=== PATIENT | female | born 1965 | race Caucasian/White ===

== ENCOUNTER 2022-01-22 17:58 | Emergency (ER) | payer OTHER ==
--- OUTSIDE RECORDS SUMMARY | 2022-01-22 18:03 | XMS REPORT | Continuity of Care Document ---
:1965 Author Organization [facility] t Address [address] [place] [address] Care Team Providers Name Role Phone KELLY MCCABE Primary Care Physician Unavailable Nimo Marinelli Attending Clinician Unavailable REMIGIO GODWIN Attending Clinician Unavailable REMIGIO GODWIN Attending Clinician Unavailable ZAIDA JAMES Attending Clinician Unavailable Doctor Unassigned, [place] Attending Clinician Unavailable Audiology, Reggie Attending Clinician Unavailable Sol Hayes MD Attending Clinician HAYESSOL Attending Clinician Unavailable JOE Attending Clinician Unavailable Yusuf_Patric Attending Clinician Unavailable KARLY Attending Clinician Unavailable Dave Hensley MD Attending Clinician DAVE HENSLEY Attending Clinician Unavailable KARY GRANT Attending Clinician Unavailable Sunny_Luis Attending Clinician Unavailable Bennett_Tuan Attending Clinician Unavailable Victorina_Luci Attending Clinician Unavailable Jerrod Attending Clinician Unavailable HAIM LOPEZ Attending Clinician Unavailable JOE Admitting Clinician Unavailable Yusuf_Patric Admitting Clinician Unavailable IHDE_G Admitting Clinician Unavailable A_Byrd Admitting Clinician Unavailable Bennett_Tuan Admitting Clinician Unavailable Victorina_Luci Admitting Clinician Unavailable Jerrod Admitting Clinician Unavailable HAIM LOPEZ Admitting Clinician Unavailable Payers Payer Name Policy Type Policy Number Effective Date Expiration Date S song [facility] [id number] 2016 PLUS 00:00:00 [place] [id number] [facility] - [place] Plus [facility] [id number] 2020 [place] 00:[place]00 [place] [facility] [id number] - [facility] (INSTIT[facility] [facility] [id number] - [facility] [id number] 2016 COMMUNITY PLAN - 00:00:00 [facility] (MEDICAID HMO) Problems Condition Condition Condition Status Onset Resolution Last Treating Co mments Source Name Details Category Date Date Treatment Clinician Date Acute Acute Problem Active [place] bronchitis Bronchitis 2-14 da 00:00: Medical Group Peripheral Peripheral Problem Active [facility] nerve Nerve 2-23 da disease Disease 00:00: Medical 00 Group Skin Skin Problem Active [place] lesion Lesion 2-23 da 00:00: Medical Group Bipolar Bipolar Problem Active [place] disorder, Disorder, 1-25 da most Most 00:00: [facility] recent Recent al episode Episode Health depression Depression Ou treac h Program Benign Benign Problem Active [place] essential Essential 9-15 da hypertensi Hypertensi 00:00: Me dical on Group Herpes Herpes Problem Active [place] simplex Simplex 3-03 da 00:00: Medical 00 Group Bilateral Bilateral Problem Active [facility] tinnitus Tinnitus 3 da 00:00: Medical Group Seasonal Seasonal Problem Active [place] allergy Allergy 3 da :00: Medical Group Asthma Asthma Problem Active [place] 3 da 00:00: Medical Group Gastroesop Gastroesop Problem Active [facility] [place] hageal hageal 3 da reflux Reflux 00:00: Medical disease Disease 00 Group without without esophagiti Esophagiti s s Chronic Chronic Problem Active [place] constipati Constipati 3 da on on 00:: Medical Group Menopausal Menopausal Problem Active [facility] syndrome Syndrome 3 da :00: Medical Group Bursitis Bursitis Problem Active [place] of hip of Hip 03-20 da 00:00: Medical Group [id number] Sleep Problem Common apnea with Spirit use of - [facility] continuous positive [facility] airway Medical pressure Center (CPAP) [id number] Seasonal Problem Comm on allergic Spirit rhinitis, - [facility] un[facility] [id number] Vitamin D Problem Comm on deficiency Spirit [facility] [id number] Anxiety Problem Common [facility] [id number] Moderate Problem Comm on persistent Spirit asthma - [facility] with acute [facility] [id number] Insomnia, Problem Com mon unspecifie Spirit d type - [facility] [id number] Chronic Problem Common fatigue [facility] [id number] Mixed Problem Common hyperlipid Spirit emia [facility] [id number] Mixed Problem Common incontinen Spirit ce urge - [facility] and stress [facility] Bipolar Bipolar Problem Active [place] disorder Disorder da [facility] Anxiety Anxiety Problem Active [place] attack Attack [facility] Chronic Chronic Problem Active [place] pain Pain da [facility] Gastroesop Gastroesop Problem Active M [facility] hageal hageal da reflux Reflux Medical disease Disease Group Breasts Breasts Problem Active [place] asymmetric Asymmetric da al al Medical Group Foot pain Foot Pain Problem Active [facility] Tremor Tremor Problem Active [place] [facility] Allergies, Adverse Reactions, Alerts Allergy Allergy Status Severity Reaction(s) Onset Inactive Treating Comm ents Source Name Type Date Date Clinician Fentanyl Propensi Active Rash 2015-03 Univer s ty to 03-25 ity of adverse 00:00: [place] reaction 00 Medical s Branch Morphine Propensi Active Rash 2015- Univer s ty to 03-25 ity of adverse 00:00: [place] reaction 00 Medical s Branch FENTANYL DRUG Active Rash 2015- Univers INGREDI 03-25 ity of 00:00: [place] 00 Medical Branch MORPHINE DRUG Active Rash 2015- Univers INGREDI 03-25 ity of 00:00: [place] 00 [facility] Branch morphine morphine Active rash [facility] fentanyl fentanyl Active rash [facility] Fentanyl Allergy Active [place] to [facility] Medical e Group Morphine Allergy Active [place] to [facility] Medical e Group Social History Social Habit Start Date Stop Date Quantity Comments Source History of Tobacco [facility] - [facility] Use [facility] Sex Assigned At Common Sp derick - [facility] Exposure to 2021-08-11 2021-08-21 Not sure [facility] SARS-CoV-2 (event) 00:00:00 14:36:00 [facility] Alcohol intake 2017-02-05 2017-02-05 0 /d [facility] 00:00:00 00:00:00 [facility] Smoking Status Start Date Stop Date Source Former Smoker 2021-10-25 00:00:00 2021-10-25 00:00:00 [facility] Medications Ordered Filled Start Stop Current Ordering Indication Dosage Frequency Signature Comments Components Source Medication Medication Date Date Medication? Clinician (SIG) Name Name Oxybutynin Oxybutynin 2021- No 1{table QD Oxybutynin Chloride ER Chloride ER 10-31 t} Chloride 15 MG 15 MG 00:00: 00:00 ER 15 MG 00 :00 Myrbetriq Myrbetriq 2021- No 1{table QD Myrbetriq 25 MG 25 MG 10-05 t} 25 MG 00:00: 00:00 00 :00 Myrbetriq Myrbetriq 2021- No 1{table QD Myrbetriq 25 MG 25 MG 10-05 t} 25 MG 00:00: 00:00 00 :00 Myrbetriq Myrbetriq 2021- No 1{table QD Myrbetriq 25 MG 25 MG 10-05 11 t} 25 MG 00:00: 00:00 00 :00 valACYclovi valACYclovi 2021- No BID valACYclov r HCl 500 r HCl 500 09-12 ir HCl 500 MG MG 00:00: 00:00 MG 00 :00 valACYclovi valACYclovi 2021- No BID valACYclov r HCl 500 r HCl 500 09-12 ir HCl 500 MG MG 00:00: 00:00 MG 00 :00 Oxybutynin Oxybutynin 2021-0 No 1{table QD Oxybutynin Chloride ER Chloride ER 707 t} Chloride 10 MG 10 MG 00:00: ER 10 MG 00 Oxybutynin Oxybutynin No 1{table QD Oxybutynin Chloride ER Chloride ER 7-07 t} Chloride 10 MG 10 MG 00:00: ER 10 MG 00 Oxybutynin Oxybutynin 0 No 1{table QD Oxybutynin Chloride ER Chloride ER 707 t} Chloride 10 MG 10 MG 00:00: ER 10 MG 00 Bactrim DS Bactrim DS 2021- No 1{table BID Bactrim DS 800-160 MG 800-160 MG 08-17 t} 800-160 MG 00:00: 00:00 00 :00 Montelukast Montelukast 2021-0 No 1{table QD Montelukas Sodium 10 Sodium 10 6-06 t} t Sodium MG MG 00:00: 10 MG 00 Advair Advair No 1{puff} BID Advair Diskus Diskus - Diskus 250-50 250-50 00:00: 250-50 MCG/DOSE MCG/DOSE 00 MCG/DOSE Advair Advair No 1{puff} BID Advair Diskus Diskus 6-06 Diskus 250-50 250-50 00:00: 250-50 MCG/DOSE MCG/DOSE 00 MCG/DOSE Albuterol Albuterol No 2{puffs Albuterol Sulfate HFA Sulfate HFA 08-07 } Sulfate 108 (90 108 (90 00:00: HFA 108 Base) Base) 00 (90 Base) MCG/ACT MCG/ACT MCG/ACT Montelukast Montelukast No 1{table QD Montelukas Sodium 10 Sodium 10 6-06 t} t Sodium MG MG 00:00: 10 MG 00 Albuterol Albuterol No 2{puffs Albuterol Sulfate HFA Sulfate HFA 06 } Sulfate 108 (90 108 (90 00:00: HFA 108 Base) Base) 00 (90 Base) MCG/ACT MCG/ACT MCG/ACT Ipratropium Ipratropium 2021- No 2{spray TID Ipratropiu [place] 08-07 12- s_in_ea m [place] 0.06 % 0.06 % 00:00: 00:00 ch_nost 0.06 % 00 :00 ril} Ipratropium Ipratropium 2021- No 2{spray TID Ipratropiu [place] 08-07 12- s_in_ea m [place] 0.06 % 0.06 % 00:00: 00:00 ch_nost 0.06 % 00 :00 ril} buPROPion Yes Univers XL 300 mg 4-03 ity of 24 hr 00:00: [place] tablet [facility] OXcarbazepi Yes Univer s ne 300 mg 4-03 ity of tablet 00:00: [place] [facility] buPROPion Yes Univers XL 300 mg 4-03 ity of 24 hr 00:00: [place] tablet [facility] OXcarbazepi Yes Univer s ne 300 mg 4-03 ity of tablet 00:00: [place] [facility] buPROPion Yes Univers XL 300 mg 4-03 ity of 24 hr 00:00: [place] tablet [facility] OXcarbazepi Yes Univer s ne 300 mg 4-03 ity of tablet 00:00: [place] [facility] buPROPion Yes Univers XL 300 mg 4-03 ity of 24 hr 00:00: [place] tablet [facility] OXcarbazepi Yes Univer s ne 300 mg 4-03 ity of tablet 00:00: [address] diclofenac Yes Univers 75 mg EC 3-28 ity of tablet 00:00: [place] 00 [facility] diclofenac 2017-0 Yes Univers 75 mg EC 3-28 ity of tablet 00:00: [place] 00 [facility] diclofenac 2017-0 Yes Univers 75 mg EC 3-28 ity of tablet 00:00: [place] [facility] diclofenac 2017-0 Yes Univers 75 mg EC 3-28 ity of tablet 00:00: [place] [facility] metoprolol 2017-0 Yes Univers tartrate 50 3-27 ity of mg tablet 00:00: [place] [facility] metoprolol 2017-0 Yes Univers tartrate 50 3-27 ity of mg tablet 00:00: [place] [facility] metoprolol 20170 Yes Univers tartrate 50 3-27 ity of mg tablet 00:00: [place] [facility] metoprolol 2017-0 Yes Univers tartrate 50 3-27 ity of mg tablet 00:00: [place] [facility] DOK 100 mg 2017-0 Yes Univers capsule 3-13 ity of 00:00: [place] [facility] polyethylen 2017-0 Yes Univer s e glycol 17 3-13 ity of gram/dose 00:00: [place] powder 00 Medical Branch valACYclovi 2017-0 Yes Univer s r 500 mg 3-13 ity of tablet 00:00: [place] [facility] DOK 100 mg 2017-0 Yes Univers capsule 3-13 ity of 00:00: [place] [facility] polyethylen 2017-0 Yes Univer s e glycol 17 3-13 ity of gram/dose 00:00: [place] powder 00 Medical Branch valACYclovi 2017-0 Yes Univer s r 500 mg 3-13 ity of tablet 00:00: [place] [facility] DOK 100 mg 2017-0 Yes Univers capsule 3-13 ity of 00:00: [place] 00 [facility] polyethylen 2017-0 Yes Univer s e glycol 17 3-13 ity of gram/dose 00:00: [place] powder 00 Medical Branch valACYclovi 2017-0 Yes Univer s r 500 mg 3-13 ity of tablet 00:00: [place] 00 [facility] DOK 100 mg 2017-0 Yes Univers capsule 3-13 ity of 00:00: [place] [facility] polyethylen 2017-0 Yes Univer s e glycol 17 3-13 ity of gram/dose 00:00: [place] powder 00 Medical Branch valACYclovi 2017-0 Yes Univer s r 500 mg 3-13 ity of tablet 00:00: [address] omeprazole 2017-0 Yes Univers 40 mg 3-12 ity of capsule 00:00: [address] omeprazole 2017-0 Yes Univers 40 mg 3-12 ity of capsule 00:00: [address] omeprazole 2017-0 Yes Univers 40 mg 3-12 ity of capsule 00:00: [address] omeprazole 2017-0 Yes Univers 40 mg 3-12 ity of capsule 00:00: [address] chlorproMAZ 2017-0 Yes Univer s INE 100 mg 3-07 ity of tablet 00:00: [address] chlorproMAZ 2017-0 Yes Univer s INE 100 mg 3-07 ity of tablet 00:00: [address] chlorproMAZ 2017-0 Yes Univer s INE 100 mg 3-07 ity of tablet 00:00: [address] chlorproMAZ 2017-0 Yes Univer s INE 100 mg 3-07 ity of tablet 00:00: [address] QUEtiapine 2017-0 Yes Univers 200 mg 2-24 ity of tablet 00:00: [address] QUEtiapine 2017-0 Yes Univers 200 mg 2-24 ity of tablet 00:00: [address] QUEtiapine 2017-0 Yes Univers 200 mg 2-24 ity of tablet 00:00: [address] QUEtiapine 2017-0 Yes Univers 200 mg 2-24 ity of tablet 00:00: [address] tiZANidine 2017-0 Yes Univers 4 mg tablet 2-18 ity of 00:00: [address] tiZANidine 2017-0 Yes Univers 4 mg tablet 2-18 ity of 00:00: [address] tiZANidine 2017-0 Yes Univers 4 mg tablet 2-18 ity of 00:00: [address] tiZANidine 2017-0 Yes Univers 4 mg tablet 2-18 ity of 00:00: [address] OLANZapine 2016-0 Yes Univers 10 mg 2-10 ity of tablet 00:00: [address] OLANZapine 2017-0 Yes Univers 10 mg 2-10 ity of tablet 00:00: [address] OLANZapine 2017-0 Yes Univers 10 mg 2-10 ity of tablet 00:00: [place] 00 [facility] OLANZapine 2017-0 Yes Univers 10 mg 2-10 ity of tablet 00:00: [place] 00 [facility] acetaminoph 2017-0 Yes Univer s en-codeine 2-01 ity of 300-30 mg 00:00: [place] tablet 00 Medical Branch acetaminoph 2017-0 Yes Univer s en-codeine 2-01 ity of 300-30 mg 00:00: [place] tablet 00 Medical Branch acetaminoph 2017-0 Yes Univer s en-codeine 2-01 ity of 300-30 mg 00:00: [place] tablet Medical Branch acetaminoph 2017-0 Yes Univer s en-codeine 2-01 ity of 300-30 mg 00:00: [place] tablet 00 Medical Branch PROAIR HFA 2017-0 Yes Univers 90 1-25 ity of mcg/actuati 00:00: [place] on inhaler 00 Medical Branch PROAIR HFA 2017-0 Yes Univers 90 1-25 ity of mcg/actuati 00:00: [place] on inhaler 00 Medical Branch PROAIR HFA 2017-0 Yes Univers 90 1-25 ity of mcg/actuati 00:00: [place] on inhaler 00 Medical Branch PROAIR HFA 2017-0 Yes Univers 90 1-25 ity of mcg/actuati 00:00: [place] on inhaler 00 Medical Branch naproxen 2017-0 Yes Univers 500 mg 1-23 ity of tablet 00:00: [place] [facility] naproxen 2017-0 Yes Univers 500 mg 1-23 ity of tablet 00:00: [place] [facility] naproxen 2017-0 Yes Univers 500 mg 1-23 ity of tablet 00:00: [place] [facility] naproxen 2017-0 Yes Univers 500 mg 1-23 ity of tablet 00:00: [place] [facility] Nitrofurant 2017-0 Yes Univer s oin&Nit. 1-17 ity of Macrocryst 00:00: [place] 100 mg 00 Medical capsule Branch Nitrofurant 2017-0 Yes Univer s oin&Nit. 1-17 ity of Macrocryst 00:00: [place] 100 mg 00 Medical capsule Branch Nitrofurant 2017-0 Yes Univer s oin&Nit. 1-17 ity of Macrocryst 00:00: [place] 100 mg 00 Medical capsule Branch Nitrofurant 2017-0 Yes Univer s oin&Nit. 1-17 ity of Macrocryst 00:00: [place] 100 mg 00 Medical capsule Branch diphenhydrA Yes Univer s MINE 25 mg 1-11 ity of capsule 00:00: [place] 00 [facility] diphenhydrA Yes Univer s MINE 25 mg 1-11 ity of capsule 00:00: [place] [facility] diphenhydrA Yes Univer s MINE 25 mg 1-11 ity of capsule 00:00: [place] [facility] diphenhydrA Yes Univer s MINE 25 mg 1-11 ity of capsule 00:00: [place] [facility] hydrOXYzine hydrOXYzine No 1{table BID hydrOXYzin HCl 25 MG HCl 25 MG t_as_ne e HCl 25 eded} MG Escitalopra Escitalopra No 1{table QD Escitalopr m Oxalate m Oxalate t} am Oxalate 20 MG 20 MG 20 MG Ipratropium Ipratropium No 2{spray TID Ipratropiu [place] s_in_ea m [place] 0.06 % 0.06 % ch_nost 0.06 % ril} Tylenol # 3 Tylenol # 3 No 1{table BID Tylenol # 300/30mg 300/30mg t_as_ne 3 300/30mg eded} Propranolol Propranolol No 1{table BID Propranolo HCl 40 MG HCl 40 MG t_on_an l HCl 40 _empty_ MG stomach } Advair Advair No 1{puff} BID Advair Diskus Diskus Diskus 250-50 250-50 250-50 MCG/DOSE MCG/DOSE MCG/DOSE tiZANidine tiZANidine No 1{table BID tiZANidine HCl 4 MG HCl 4 MG t_as_ne HCl 4 MG eded} Albuterol Albuterol No 2{puffs Albuterol Sulfate HFA Sulfate HFA } Sulfate 108 (90 108 (90 HFA 108 Base) Base) (90 Base) MCG/ACT MCG/ACT MCG/ACT Montelukast Montelukast No 1{table QD Montelukas Sodium 10 Sodium 10 t} t Sodium MG MG 10 MG hydrOXYzine hydrOXYzine No 1{table BID hydrOXYzin HCl 25 MG HCl 25 MG t_as_ne e HCl 25 eded} MG Albuterol Albuterol No 2{puffs Albuterol Sulfate HFA Sulfate HFA } Sulfate 108 (90 108 (90 HFA 108 Base) Base) (90 Base) MCG/ACT MCG/ACT MCG/ACT Tylenol # 3 Tylenol # 3 No 1{table BID Tylenol # 300/30mg 300/30mg t_as_ne 3 300/30mg eded} Ipratropium Ipratropium No 2{spray TID Ipratropiu [place] s_in_ea m [place] 0.06 % 0.06 % ch_nost 0.06 % ril} Propranolol Propranolol No 1{table BID Propranolo HCl 80 MG HCl 80 MG t} l HCl 80 MG hydrOXYzine hydrOXYzine No 1{table BID hydrOXYzin HCl 25 MG HCl 25 MG t_as_ne e HCl 25 eded} MG Escitalopra Escitalopra No 1{table QD Escitalopr m Oxalate m Oxalate t} am Oxalate 20 MG 20 MG 20 MG Advair Advair No 1{puff} BID Advair Diskus Diskus Diskus 250-50 250-50 250-50 MCG/DOSE MCG/DOSE MCG/DOSE Montelukast Montelukast No 1{table QD Montelukas Sodium 10 Sodium 10 t} t Sodium MG MG 10 MG tiZANidine tiZANidine No 1{table BID tiZANidine HCl 4 MG HCl 4 MG t_as_ne HCl 4 MG eded} Albuterol Albuterol No 2{puffs Albuterol Sulfate HFA Sulfate HFA } Sulfate 108 (90 108 (90 HFA 108 Base) Base) (90 Base) MCG/ACT MCG/ACT MCG/ACT Tylenol # 3 Tylenol # 3 No 1{table BID Tylenol # 300/30mg 300/30mg t_as_ne 3 300/30mg eded} Ipratropium Ipratropium No 2{spray TID Ipratropiu [place] s_in_ea m [place] 0.06 % 0.06 % ch_nost 0.06 % ril} Propranolol Propranolol No 1{table BID Propranolo HCl 80 MG HCl 80 MG t} l HCl 80 MG hydrOXYzine hydrOXYzine No 1{table BID hydrOXYzin HCl 25 MG HCl 25 MG t_as_ne e HCl 25 eded} MG Escitalopra Escitalopra No 1{table QD Escitalopr m Oxalate m Oxalate t} am Oxalate 20 MG 20 MG 20 MG Advair Advair No 1{puff} BID Advair Diskus Diskus Diskus 250-50 250-50 250-50 MCG/DOSE MCG/DOSE MCG/DOSE Montelukast Montelukast No 1{table QD [place]as Sodium 10 Sodium 10 t} t Sodium MG MG 10 MG tiZANidine tiZANidine No 1{table BID tiZANidine HCl 4 MG HCl 4 MG t_as_ne HCl 4 MG eded} hydrOXYzine hydrOXYzine No 1{table BID hydrOXYzin HCl 25 MG HCl 25 MG t_as_ne e HCl 25 eded} MG Albuterol Albuterol No 2{puffs Albuterol Sulfate HFA Sulfate HFA } Sulfate 108 (90 108 (90 HFA 108 Base) Base) (90 Base) MCG/ACT MCG/ACT MCG/ACT Tylenol # 3 Tylenol # 3 No 1{table BID Tylenol # 300/30mg 300/30mg t_as_ne 3 300/30mg eded} Montelukast Montelukast No 1{table QD [place]as Sodium 10 Sodium 10 t} t Sodium MG MG 10 MG Propranolol Propranolol No 1{table BID Propranolo HCl 80 MG HCl 80 MG t} l HCl 80 MG Ipratropium Ipratropium No 2{spray TID Ipratropiu [place] s_in_ea m [place] 0.06 % 0.06 % ch_nost 0.06 % ril} Escitalopra Escitalopra No 1{table QD Escitalopr m Oxalate m Oxalate t} am Oxalate 20 MG 20 MG 20 MG tiZANidine tiZANidine No 1{table BID tiZANidine HCl 4 MG HCl 4 MG t_as_ne HCl 4 MG eded} Advair Advair No 1{puff} BID Advair Diskus Diskus Diskus 250-50 250-50 250-50 MCG/DOSE MCG/DOSE MCG/DOSE Propranolol Propranolol No Propranolo HCl 80 MG HCl 80 MG l HCl 80 MG Albuterol Albuterol No 2{puffs Albuterol Sulfate HFA Sulfate HFA } Sulfate 108 (90 108 (90 HFA 108 Base) Base) (90 Base) MCG/ACT MCG/ACT MCG/ACT Tylenol # 3 Tylenol # 3 No 1{table BID Tylenol # 300/30mg 300/30mg t_as_ne 3 300/30mg eded} Montelukast Montelukast No 1{table QD Montelukas Sodium 10 Sodium 10 t} t Sodium MG MG 10 MG Oxybutynin Oxybutynin No Oxybutynin Chloride ER Chloride ER Chloride 10 MG 10 MG ER 10 MG Escitalopra Escitalopra No 1{table QD Escitalopr m Oxalate m Oxalate t} am Oxalate 20 MG 20 MG 20 MG Ipratropium Ipratropium No 2{spray TID Ipratropiu [place] s_in_ea m [place] 0.06 % 0.06 % ch_nost 0.06 % ril} tiZANidine tiZANidine No 1{table BID tiZANidine HCl 4 MG HCl 4 MG t_as_ne HCl 4 MG eded} Propranolol Propranolol No Propranolo HCl 40 MG HCl 40 MG l HCl 40 MG hydrOXYzine hydrOXYzine No 1{table BID hydrOXYzin HCl 25 MG HCl 25 MG t_as_ne e HCl 25 eded} MG Advair Advair No 1{puff} BID Advair Diskus Diskus Diskus 250-50 250-50 250-50 MCG/DOSE MCG/DOSE MCG/DOSE Escitalopra Escitalopra No 1{table QD Escitalopr m Oxalate m Oxalate t} am Oxalate 20 MG 20 MG 20 MG hydrOXYzine hydrOXYzine No 1{table BID hydrOXYzin HCl 25 MG HCl 25 MG t_as_ne e HCl 25 eded} MG Propranolol Propranolol No 1{table BID Propranolo HCl 40 MG HCl 40 MG t_on_an l HCl 40 _empty_ MG stomach } tiZANidine tiZANidine No 1{table BID tiZANidine HCl 4 MG HCl 4 MG t_as_ne HCl 4 MG eded} Tylenol # 3 Tylenol # 3 No 1{table BID Tylenol # 300/30mg 300/30mg t_as_ne 3 300/30mg eded} tiZANidine tiZANidine No 1{table BID tiZANidine HCl 4 MG HCl 4 MG t_as_ne HCl 4 MG eded} Escitalopra Escitalopra No 1{table QD Escitalopr m Oxalate m Oxalate t} am Oxalate 20 MG 20 MG 20 MG Propranolol Propranolol No 1{table BID Propranolo HCl 40 MG HCl 40 MG t_on_an l HCl 40 _empty_ MG stomach } Tylenol # 3 Tylenol # 3 No 1{table BID Tylenol # 300/30mg 300/30mg t_as_ne 3 300/30mg eded} hydrOXYzine hydrOXYzine No 1{table BID hydrOXYzin HCl 25 MG HCl 25 MG t_as_ne e HCl 25 eded} MG Tylenol # 3 Tylenol # 3 No 1{table BID Tylenol # 300/30mg 300/30mg t_as_ne 3 300/30mg eded} Ipratropium Ipratropium No 2{spray TID Ipratropiu [place] s_in_ea m [place] 0.06 % 0.06 % ch_nost 0.06 % ril} hydrOXYzine hydrOXYzine No 1{table BID hydrOXYzin HCl 25 MG HCl 25 MG t_as_ne e HCl 25 eded} MG Propranolol Propranolol No 1{table BID Propranolo HCl 40 MG HCl 40 MG t_on_an l HCl 40 _empty_ MG stomach } Escitalopra Escitalopra No 1{table QD Escitalopr m Oxalate m Oxalate t} am Oxalate 20 MG 20 MG 20 MG Albuterol Albuterol No 2{puffs Albuterol Sulfate HFA Sulfate HFA } Sulfate 108 (90 108 (90 HFA 108 Base) Base) (90 Base) MCG/ACT MCG/ACT MCG/ACT Montelukast Montelukast No 1{table QD Montelukas Sodium 10 Sodium 10 t} t Sodium MG MG 10 MG Advair Advair No 1{puff} BID Advair Diskus Diskus Diskus 250-50 250-50 250-50 MCG/DOSE MCG/DOSE MCG/DOSE tiZANidine tiZANidine No 1{table BID tiZANidine HCl 4 MG HCl 4 MG t_as_ne HCl 4 MG eded} Escitalopra Escitalopra No 1{table QD Escitalopr m Oxalate m Oxalate t} am Oxalate 20 MG 20 MG 20 MG Ipratropium Ipratropium No 2{spray TID Ipratropiu [place] s_in_ea m [place] 0.06 % 0.06 % ch_nost 0.06 % ril} Tylenol # 3 Tylenol # 3 No 1{table BID Tylenol # 300/30mg 300/30mg t_as_ne 3 300/30mg eded} Propranolol Propranolol No 1{table BID Propranolo HCl 40 MG HCl 40 MG t_on_an l HCl 40 _empty_ MG stomach } Advair Advair No 1{puff} BID Advair Diskus Diskus Diskus 250-50 250-50 250-50 MCG/DOSE MCG/DOSE MCG/DOSE tiZANidine tiZANidine No 1{table BID tiZANidine HCl 4 MG HCl 4 MG t_as_ne HCl 4 MG eded} Albuterol Albuterol No 2{puffs Albuterol Sulfate HFA Sulfate HFA } Sulfate 108 (90 108 (90 HFA 108 Base) Base) (90 Base) MCG/ACT MCG/ACT MCG/ACT Montelukast Montelukast No 1{table QD Montelukas Sodium 10 Sodium 10 t} t Sodium MG MG 10 MG acetaminoph acetaminoph No acetaminop [place] 300 en 300 hen 300 da mg-codeine mg-codeine mg-codeine [facility] 30 mg 30 mg 30 mg al tablet TAKE tablet TAKE tablet Health 1 TABLET BY 1 TABLET BY TAKE 1 Outreac MOUTH TWICE MOUTH TWICE TABLET BY h DAILY FOR DAILY FOR MOUTH Prog erin 14 DAYS 14 DAYS TWICE DAILY FOR 14 DAYS albuterol albuterol No albuterol [place] HFA sulfate HFA sulfate da 90 90 HFA 90 [facility] mcg/actuati mcg/actuati mcg/actuat al on aerosol on aerosol ion Hea lth inhaler inhaler aerosol Outrea c INHALE 2 INHALE 2 inhaler h PUFFS BY PUFFS BY INHALE 2 Pro gram MOUTH EVERY MOUTH EVERY PUFFS BY 4 HOURS 4 HOURS MOUTH NEEDED NEEDED EVERY 4 HOURS NEEDED aripiprazol aripiprazol No 1 Q1D aripiprazo [place] 15 mg e 15 mg le 15 mg da tablet Take tablet Take tablet [facility] 1 tablet 1 tablet Take 1 al every day every day tablet Hea lth by oral by oral every day Outr eac route in route in by oral h the the route in Program morning. morning. the morning. atorvastati atorvastati No atorvastat [place] 10 mg n 10 mg in 10 mg da tablet TAKE tablet TAKE tablet [facility] 1 TABLET BY 1 TABLET BY TAKE 1 al MOUTH EVERY MOUTH EVERY TABLET BY Health DAY DAY MOUTH Outreac EVERY DAY h Program Banophen 50 Banophen 50 No Banophen [place] mg capsule mg capsule 50 mg da TK 1 C PO TK 1 C PO capsule TK [facility] QHS QHS 1 C PO QHS al Health Outreac h Program bupropion bupropion No 1 Q1D bupropion [place] HCl XL 300 HCl XL 300 HCl XL 300 da mg 24 hr mg 24 hr mg 24 hr Epi scop tablet, tablet, tablet, al extended extended extended Hea lth release release release Outrea c Take 1 Take 1 Take 1 h tablet tablet tablet Program every day every day every day by oral by oral by oral route in route in route in the the the morning. morning. morning. citalopram citalopram No citalopram [place] 40 mg 40 mg 40 mg da tablet TAKE tablet TAKE tablet [facility] 1 TABLET BY 1 TABLET BY TAKE 1 al MOUTH EVERY MOUTH EVERY TABLET BY Health MORNING MORNING MOUTH Outreac EVERY h MORNING Program clindamycin clindamycin No clindamyci [facility] HCl 150 mg HCl 150 mg n HCl 150 da capsule TK capsule TK mg capsule [facility] 1 C PO QID 1 C PO QID TK 1 C PO al FOR FOR QID FOR Health INFECTION INFECTION INFECTION Outreac h Program clonazepam clonazepam No clonazepam [place] 0.5 mg 0.5 mg 0.5 mg da tablet TK 1 tablet TK 1 tablet TK [facility] T PO BID T PO BID 1 T PO BID a l Health Outreac h Program clotrimazol clotrimazol No clotrimazo [place] e 1 % e 1 % le 1 % da topical topical topical [facility] p cream JASON cream JASON cream JASON al AA BID AA BID AA BID Health Outreac h Program ergocalcife ergocalcife No ergocalcif [place] rol rol cj da (vitamin (vitamin (vitamin Epi scop D2) 1,250 D2) 1,250 D2) 1,250 al mcg (50,000 mcg (50,000 mcg H ealth unit) unit) (50,000 Outreac capsule capsule unit) h TAKE 1 TAKE 1 capsule Program CAPSULE BY CAPSULE BY TAKE 1 MOUTH 1 MOUTH 1 CAPSULE BY TIME WEEKLY TIME WEEKLY MOUTH 1 TIME WEEKLY estradiol 1 estradiol 1 No estradiol [facility] mg tablet mg tablet 1 mg da TAKE 1 TAKE 1 tablet [facility] TABLET BY TABLET BY TAKE 1 al MOUTH EVERY MOUTH EVERY TABLET BY Health DAY DAY MOUTH Outreac EVERY DAY h Program fluticasone fluticasone No fluticason [place] propionate propionate e da 50 50 propionate [facility] mcg/actuati mcg/actuati 50 a l on nasal on nasal mcg/actuat H ealth spray,suspe spray,suspe ion nasal Outreac nsion SHAKE nsion SHAKE spray,susp h LIQUID AND LIQUID AND ension P rogram USE 1 SPRAY USE 1 SPRAY SHAKE IN EACH IN EACH LIQUID AND NOSTRIL NOSTRIL USE 1 DAILY DAILY SPRAY IN EACH NOSTRIL DAILY gemfibrozil gemfibrozil No gemfibrozi [place] 600 mg 600 mg l 600 mg da tablet TAKE tablet TAKE tablet [facility] 1 TABLET BY 1 TABLET BY TAKE 1 al MOUTH TWICE MOUTH TWICE TABLET BY Health DAILY DAILY MOUTH Outreac TWICE h DAILY Program hydroxyzine hydroxyzine No hydroxyzin [place] HCl 50 mg HCl 50 mg e HCl 50 d a tablet TAKE tablet TAKE mg tablet [facility] 1 TABLETS 1 TABLETS TAKE 1 al BY MOUTH BY MOUTH TABLETS BY H ealth TWICE DAILY TWICE DAILY MOUTH Outreac NEEDED NEEDED TWICE h DAILY Program NEEDED hydroxyzine hydroxyzine No hydroxyzin [place] pamoate 25 pamoate 25 e pamoate da mg capsule mg capsule 25 mg [facility] TK 1 C PO TK 1 C PO capsule TK al QD PRA QD PRA 1 C PO QD Health PRA Outreac h Program nystatin nystatin No nystatin [facility] 100,000 100,000 100,000 da unit/mL unit/mL unit/mL [facility] p oral oral oral al suspension suspension suspension Health TK 4 ML PO TK 4 ML PO TK 4 ML PO Outreac QID FOR 7 QID FOR 7 QID FOR 7 h DAYS DAYS DAYS Program ondansetron ondansetron No ondansetro [place] HCl 4 mg HCl 4 mg n HCl 4 mg d a tablet TK 1 tablet TK 1 tablet TK [facility] T PO Q 6 H T PO Q 6 H 1 T PO Q 6 al PRF NAUSEA PRF NAUSEA H PRF He alth OR VOM OR VOM NAUSEA OR Outrea c VOM h Program oxcarbazepi oxcarbazepi No oxcarbazep [place] ne 150 mg ne 150 mg ine 150 mg da tablet TK 1 tablet TK 1 tablet TK [facility] T PO BID T PO BID 1 T PO BID a l Health Outreac h Program pantoprazol pantoprazol No pantoprazo [place] e 40 mg e 40 mg le 40 mg da tablet,alfredito tablet,alfredito tablet,del [facility] yed release yed release ayed a l TK 1 T PO TK 1 T PO release TK Health QD QD 1 T PO QD Outreac h Program polyethylen polyethylen No polyethyle [place] e glycol e glycol ne glycol da 3350 17 3350 17 3350 17 [facility] p gram/dose gram/dose gram/dose al oral powder oral powder oral H ealth DIS 17 DIS 17 powder DIS Outre ac GRAMS IN LQ GRAMS IN LQ 17 GRAMS h AND TK PO AND TK PO IN LQ AND Program BID PRN UTD BID PRN UTD TK PO BID PRN UTD propranolol propranolol No propranolo [place] 80 mg 80 mg l 80 mg da tablet TAKE tablet TAKE tablet [facility] 1 TABLET BY 1 TABLET BY TAKE 1 al MOUTH TWICE MOUTH TWICE TABLET BY Health DAILY DAILY MOUTH Outreac TWICE h DAILY Program quetiapine quetiapine No quetiapine [facility] 100 mg 100 mg 100 mg da tablet TK 1 tablet TK 1 tablet TK [facility] T PO ONCE D T PO ONCE D 1 T PO al ONCE D Health Outreac h Program quetiapine quetiapine No quetiapine [facility] 200 mg 200 mg 200 mg da tablet TK 1 tablet TK 1 tablet TK [facility] T PO QHS T PO QHS 1 T PO QHS a l Health Outreac h Program quetiapine quetiapine No quetiapine [facility] 300 mg 300 mg 300 mg da tablet TK 1 tablet TK 1 tablet TK [facility] T PO HS T PO HS 1 T PO HS al Health Outreac h Program sucralfate sucralfate No sucralfate [facility] 1 gram 1 gram 1 gram da tablet TK 1 tablet TK 1 tablet TK [facility] T PO QID T PO QID 1 T PO QID a l Health Outreac h Program tizanidine tizanidine No tizanidine [facility] 4 mg tablet 4 mg tablet 4 mg d a TK 1 T PO TK 1 T PO tablet TK [facility] BID BID 1 T PO BID al Health Outreac h Program tramadol 50 tramadol 50 No tramadol [facility] mg tablet mg tablet 50 mg da TK ONE T PO TK ONE T PO tablet TK [facility] Q 6 H PRN P Q 6 H PRN P ONE T PO Q al 6 H PRN P Health Outreac h Program valacyclovi valacyclovi No valacyclov [place] r 500 mg r 500 mg ir 500 mg da tablet TAKE tablet TAKE tablet [facility] 1 TABLET BY 1 TABLET BY TAKE 1 al MOUTH EVERY MOUTH EVERY TABLET BY Health DAY DAY MOUTH Outreac EVERY DAY h Program acetaminoph acetaminoph No acetaminop [place] en 300 en 300 hen 300 da mg-codeine mg-codeine mg-codeine Medical 30 mg 30 mg 30 mg Group tablet TAKE tablet TAKE tablet 1 TABLET BY 1 TABLET BY TAKE 1 MOUTH TWICE MOUTH TWICE TABLET BY DAILY DAILY MOUTH TWICE DAILY albuterol albuterol No 2puff(s Q4H albuterol [place] sulfate HFA sulfate HFA ) sulfate da 90 90 HFA 90 Medical mcg/actuati mcg/actuati mcg/actuat Group on aerosol on aerosol ion inhaler inhaler aerosol Inhale 2 Inhale 2 inhaler puffs every puffs every Inhale 2 4 hours by 4 hours by puffs inhalation inhalation every 4 route as route as hours by needed. needed. inhalation route as needed. atorvastati atorvastati No atorvastat [place] n 10 mg n 10 mg in 10 mg da tablet TAKE tablet TAKE tablet Medical 1 TABLET BY 1 TABLET BY TAKE 1 Group MOUTH EVERY MOUTH EVERY TABLET BY DAY DAY MOUTH EVERY DAY bupropion bupropion No bupropion [facility] HCl XL 300 HCl XL 300 HCl XL 300 da mg 24 hr mg 24 hr mg 24 hr Med ical tablet, tablet, tablet, Group extended extended extended release release release TAKE 1 TAKE 1 TAKE 1 TABLET BY TABLET BY TABLET BY MOUTH EVERY MOUTH EVERY MOUTH MORNING MORNING EVERY MORNING citalopram citalopram No citalopram [place] 40 mg 40 mg 40 mg da tablet TAKE tablet TAKE tablet Medical 1 TABLET BY 1 TABLET BY TAKE 1 Group MOUTH EVERY MOUTH EVERY TABLET BY MORNING MORNING MOUTH EVERY MORNING estradiol 1 estradiol 1 No estradiol [facility] mg tablet mg tablet 1 mg da TAKE 1 TAKE 1 tablet Medical TABLET BY TABLET BY TAKE 1 Sherin up MOUTH EVERY MOUTH EVERY TABLET BY DAY DAY MOUTH EVERY DAY fluticasone fluticasone No fluticason [place] propionate propionate e da 50 50 propionate Medical mcg/actuati mcg/actuati 50 G roup on nasal on nasal mcg/actuat spray,suspe spray,suspe ion nasal nsion SHAKE nsion SHAKE spray,susp LIQUID AND LIQUID AND ension USE 1 SPRAY USE 1 SPRAY SHAKE IN EACH IN EACH LIQUID AND NOSTRIL NOSTRIL USE 1 EVERY DAY EVERY DAY SPRAY IN EACH NOSTRIL EVERY DAY gemfibrozil gemfibrozil No gemfibrozi [place] 600 mg 600 mg l 600 mg da tablet TAKE tablet TAKE tablet Medical 1 TABLET BY 1 TABLET BY TAKE 1 Group MOUTH TWICE MOUTH TWICE TABLET BY DAILY DAILY MOUTH TWICE DAILY hydroxyzine hydroxyzine No hydroxyzin [place] HCl 50 mg HCl 50 mg e HCl 50 d a tablet TAKE tablet TAKE mg tablet Medical 1 TABLET BY 1 TABLET BY TAKE 1 Group MOUTH AT MOUTH AT TABLET BY BEDTIME BEDTIME MOUTH AT BEDTIME ipratropium ipratropium No ipratropiu [facility] 0.5 0.5 m 0.5 da mg-albutero mg-albutero mg-albuter Medical l 3 mg (2.5 l 3 mg (2.5 ol 3 mg Group mg base)/3 mg base)/3 (2.5 mg mL mL base)/3 mL nebulizatio nebulizatio nebulizati n soln USE n soln USE on soln 1 VIAL VIA 1 VIAL VIA USE 1 VIAL NEBULIZER NEBULIZER VIA FOUR TIMES FOUR TIMES NEBULIZER DAILY DAILY FOUR TIMES DAILY ipratropium ipratropium No ipratropiu [place] bromide 42 bromide 42 m bromide da mcg (0.06 mcg (0.06 42 mcg Med ical %) nasal %) nasal (0.06 %) Sherin up spray USE 2 spray USE 2 nasal SPRAYS IN SPRAYS IN spray USE EACH EACH 2 SPRAYS NOSTRIL NOSTRIL IN EACH THREE TIMES THREE TIMES NOSTRIL DAILY DAILY THREE TIMES DAILY montelukast montelukast No montelukas [facility] 10 mg 10 mg t 10 mg da tablet TAKE tablet TAKE tablet Medical 1 TABLET BY 1 TABLET BY TAKE 1 Group MOUTH EVERY MOUTH EVERY TABLET BY DAY DAY MOUTH EVERY DAY propranolol propranolol No propranolo [facility] 80 mg 80 mg l 80 mg da tablet TAKE tablet TAKE tablet Medical 1 TABLET BY 1 TABLET BY TAKE 1 Group MOUTH TWICE MOUTH TWICE TABLET BY DAILY DAILY MOUTH TWICE DAILY tizanidine tizanidine No tizanidine [facility] 4 mg tablet 4 mg tablet 4 mg d a TAKE 1 TAKE 1 tablet Medical TABLET BY TABLET BY TAKE 1 Sherin up MOUTH TWICE MOUTH TWICE TABLET BY DAILY DAILY MOUTH TWICE DAILY Immunizations Ordered Immunization Filled Immunization Date Status Commen ts Source Name Name influenza, influenza, 2016-01-03 Completed [place] injectable, injectable, 00:00:00 Medical Grou p quadrivalent quadrivalent pneumococcal pneumococcal 2015-11-22 Completed [place] polysaccharide PPV23 polysaccharide PPV23 00:00:00 Medical Group Vital Signs Vital Name Observation Time Observation Value Comments Source height 2021-08-07 15:20:00 63 [in_i] [facility] weight 2021-08-07 15:20:00 216 [lb_av] [facility] temperature 2021-08-07 15:20:00 97.3 [degF] [facility] bmi 2021-08-07 15:20:00 38.26 kg/m2 [facility] oximetry 2021-08-07 15:20:00 95 % [facility] respiratory rate 2021-08-07 15:20:00 16 /min Comm on [facility] blood pressure 2021-08-07 15:20:00 130 mm[Hg] [facility] - systolic [facility] blood pressure 2021-08-07 15:20:00 82 mm[Hg] [facility] - diastolic [facility] BP Diastolic 2021-04-14 00:00:00 80 mm[Hg] [facility] Height 2021-04-14 00:00:00 63 [in_i] [facility] BMI (Body Mass 2021-04-14 00:00:00 37.8 kg/[facility]2 [facility] BP Systolic 2021-04-14 00:00:00 121 mm[Hg] [facility] Body Weight 2021-04-14 00:00:00 3411 [oz_av] [facility] BP Diastolic 2021-03-13 00:00:00 78 mm[Hg] [facility] Height 2021-03-13 00:00:00 63 [in_i] [facility] BMI (Body Mass 2021-03-13 00:00:00 38.1 kg/m2 [facility] Medical Index) Group BP Systolic 2021-03-13 00:00:00 116 mm[Hg] [facility] Body Weight 2021-03-13 00:00:00 214.9 [lb_av] [facility] BP Diastolic 2021-02-16 00:00:00 70 mm[Hg] [facility] Height 2021-02-16 00:00:00 63 [in_i] [facility] BMI (Body Mass 2021-02-16 00:00:00 38.1 kg/m2 [facility] Medical Index) Group BP Systolic 2021-02-16 00:00:00 132 mm[Hg] [facility] Body Weight 2021-02-16 00:00:00 215 [lb_av] [facility] BP Diastolic 2020-11-23 00:00:00 75 mm[Hg] [facility] Height 2020-11-23 00:00:00 63 [in_i] [facility] BMI (Body Mass 2020-11-23 00:00:00 38.3 kg/m2 [facility] Medical Index) Group BP Systolic 2020-11-23 00:00:00 117 mm[Hg] [facility] Body Weight 2020-11-23 00:00:00 216.2 [lb_av] [facility] BP Diastolic 2020-06-30 00:00:00 76 mm[Hg] [facility] Height 2020-06-30 00:00:00 63 [in_i] [facility] BMI (Body Mass 2020-06-30 00:00:00 35.8 kg/m2 [facility] Medical Index) Group BP Systolic 2020-06-30 00:00:00 126 mm[Hg] [facility] Body Weight 2020-06-30 00:00:00 202 [lb_av] [facility] BP Diastolic 2020-06-16 00:00:00 78 mm[Hg] [facility] Height 2020-06-16 00:00:00 63 [in_i] [facility] BMI (Body Mass 2020-06-16 00:00:00 35.8 kg/m2 [facility] BP Systolic 2020-06-16 00:00:00 130 mm[Hg] [facility] Body Weight 2020-06-16 00:00:00 202 [lb_av] [facility] BP Diastolic 2020-04-26 00:00:00 89 mm[Hg] [facility] Height 2020-04-26 00:00:00 63 [in_i] [facility] BMI (Body Mass 2020-04-26 00:00:00 35[facility]9 [facility] BP Systolic 2020-04-26 00:00:00 135 mm[Hg] [facility] Body Weight 2020-04-26 00:00:00 3244.8 [oz_av] [facility] BP Diastolic 2020-03-08 00:00:00 68 mm[Hg] [facility] Height 2020-03-08 00:00:00 63 [in_i] [facility] BMI (Body Mass 2020-03-08 00:00:00 36.8 kg/m2 [facility] [employer] Medical Index) Group BP Systolic 2020-03-08 00:00:00 132 mm[Hg] [facility] Body Weight 2020-03-08 00:00:00 207.6 [lb_av] [facility] BP Diastolic 2020-01-21 00:00:00 62 mm[Hg] [facility] Height 2020-01-21 00:00:00 63 [in_i] [facility] BMI (Body Mass 2020-01-21 00:00:00 38.5 kg/m2 [facility] BP Systolic 2020-01-21 00:00:00 128 mm[Hg] [facility] Body Weight 2020-01-21 00:00:00 217.2 [lb_av] [facility] BP Diastolic 2019-12-31 00:00:00 75 mm[Hg] [facility] Height 2019-12-31 00:00:00 63 [in_i] [facility] BMI (Body Mass 2019-12-31 00:00:00 38.3 kg/m2 [facility] Medical Index) Group BP Systolic 2019-12-31 00:00:00 125 mm[Hg] [facility] Body Weight 2019-12-31 00:00:00 216 [lb_av] [facility] BP Diastolic 2019-11-17 00:00:00 77 mm[Hg] [facility] Height 2019-11-17 00:00:00 63 [in_i] [facility] BMI (Body Mass 2019-11-17 00:00:00 38.3 kg/m2 [facility] Medical Index) Group BP Systolic 2019-11-17 00:00:00 129 mm[Hg] [facility] Body Weight 2019-11-17 00:00:00 216 [lb_av] [facility] BP Diastolic 2019-11-03 00:00:00 78 mm[Hg] [facility] Height 2019-11-03 00:00:00 63 [in_i] [facility] BMI (Body Mass 2019-11-03 00:00:00 37.9 kg/m2 [facility] Medical Index) Group BP Systolic 2019-11-03 00:00:00 121 mm[Hg] [facility] Body Weight 2019-11-03 00:00:00 214 [lb_av] [facility] BP Diastolic 2019-05-12 00:00:00 84 mm[Hg] [facility] Height 2019-05-12 00:00:00 63 [in_i] [facility] BMI (Body Mass 2019-05-12 00:00:00 36 kg/m2 [facility] Medical Index) Group BP Systolic 2019-05-12 00:00:00 126 mm[Hg] [facility] Body Weight 2019-05-12 00:00:00 203 [lb_av] [facility] BP Diastolic 2019-05-05 00:00:00 87 mm[Hg] [facility] Height 2019-05-05 00:00:00 63 [in_i] [facility] BMI (Body Mass 2019-05-05 00:00:00 36 kg/m2 [facility] [employer] Medical Index) Group BP Systolic 2019-05-05 00:00:00 130 mm[Hg] [facility] Body Weight 2019-05-05 00:00:00 3248 [oz_av] [facility] Procedures Procedure Date / Time Performing Source Performed Clinician REFERRAL- REQUEST/RESPONSE 2021-11-21 Doctor Unive rsity of 05:01:00 Unassigned, No [facility] unlisted imaging order 2021-03-13 [facility] 00:00:00 Group REFERRAL- REQUEST/RESPONSE 2020-08-16 Doctor Unive rsity of 05:01:00 Unassigned, No [facility] MAMMO, screening, digital, 2020-04-26 [facility] Upper GI Endoscopy 2019-11-27 [facility] [facility] 00:00:00 Group Cholecystectomy 2015-03-04 [facility] 00:00:00 Group Colonoscopy 2009-03-04 [facility] 00:00:00 Group Procedure on Lower Leg [facility] Hysterectomy [facility] Orthopedic Surgery [facility] [facility] Esophagogastroduodenoscopy (Surg) [facility] Plan of Care Planned Activity Planned Date Details Comments Source Instructions [facility] Outreach Program Encounters Start End Encounter Admission Attending Care Care Encounter Source Date/Time Date/Time Type Type Clinicians Facility Department ID 2021-12-11 Outpatient Marinelli, Na [facility] [id number] Common 08:05:02 [facility] 2021-10-27 Outpatient Marinelli, Na [facility] [id number] 2 Common 09:51:02 [facility] 2021-09-06 Outpatient Marinelli, Na [facility] [id number] 2 Common 11:56:02 [facility] 2021-08-07 Outpatient Nimo Marinelli STLMLC ST[facility] [id number] 2 Common 14:59:04 [facility] 2022-01-19 2022-01-19 Outpatient REMIGIO ALBERT [facility] [id number] Univers 13:40:00 13:40:00 TATO, REMIGIO [facility] 2022-01-15 2022-01-15 (TEL) STLMLC STLMLC [id number] Co mmon 00:00:00 00:00:00 [facility] 2022-01-01 2022-01-01 Outpatient Astrid WERNERTATO, REMIGIO [facility] [id number] Univers 13:40:00 13:40:00 REMIGIO GODWIN [facility] 2021-12-08 2021-12-08 Outpatient Astrid WERNERTATO, REMIGIO [facility] [id number] Univers 13:40:00 13:40:00 REMIGIO GODWIN [facility] 2021-11-21 2021-11-21 Orders Doctor KIRSTEN [id number] Univers 00:00:00 00:00:00 Only Unassigned, CARLA [id number] [place]y [place] [facility] [id number] Reggie as [phone] [address] 2021-10-31 2021-10-31 OFFICE STLMLC STLMLC [id number] Co mmon 00:00:00 00:00:00 VISIT EST Spir it PT LEVEL 3 - [facility] 2021-10-10 2021-10-10 (TEL) STLMLC STLMLC [id number] Co mmon 00:00:00 00:00:00 [facility] 2021-10-05 2021-10-05 (TEL) STLMLC STLMLC [id number] Co mmon 00:00:00 00:00:00 [facility] 2021-09-08 2021-09-08 (TEL) STLMLC STLMLC [id number] Co mmon 00:00:00 00:00:00 [facility] 2021-09-06 2021-09-06 (TEL) STLMLC STLMLC [id number] Co mmon 00:00:00 00:00:00 [facility] 2021-09-06 2021-09-06 OFFICE STLMLC STLMLC [id number] Co mmon 00:00:00 00:00:00 VISIT EST Spir it PT LEVEL 3 - [facility] 2021-08-21 2021-08-21 Ancillary Audiology, [facility] [id number] [facility] 14:30:00 15:15:00 Visit Freddy [facility] [id number] [facility] [id number] [facility] [phone] [facility] PRIMARY & [facility] SPECIALTY CARE 2021-08-21 2021-08-21 Outpatient Astrid HAYES [facility] [id number] Univers 14:30:00 14:30:00 [facility] 2021-08-17 2021-08-17 (TEL) STLMLC STLMLC [id number] Co mmon 00:00:00 00:00:00 [facility] 2021-08-07 2021-08-07 OFFICE STLMLC STLMLC [id number] Co mmon 00:00:00 00:00:00 VISIT NEW Spir it PT LEVEL 4 - [facility] 2021-05-30 2021-05-30 Outpatient FERGUSON_JO MEHOP MEHOP 909 [place] 02:29:00 02:29:00 HN [id number] 2021-05-28 2021-05-28 Outpatient FERGUSON_JO MEHOP MEHOP 909 [place] 01:52:00 01:52:00 HN 0327 [facility] 2021-05-03 2021-05-03 Outpatient Wong_H VFP VFP [id number] [facility] 06:42:00 06:42:00 [id number] Family Practic e 2021-04-18 2021-04-18 Outpatient FERGUSON_JO MEHOP MEHOP 909 [place] 04:11:00 04:11:00 HN [id number] [facility] 2021-04-14 2021-04-14 [place] [id number] 022 [place] 03:02:00 03:02:00 0211 [facility] 2021-04-14 2021-04-14 [place] [id number] 022 [place] 03:02:00 03:02:00 021 [facility] 2021-04-14 2021-04-14 Zaida [facility] [place] - [id number] [place] 00:00:00 00:00:00 Discovery Charanjit da CLINICAL EDUCATION SPECIALIST-C: [address] [facility] [place] - [address], [facility], [place] [address] , Ph. 2021-04-13 2021-04-13 Outpatient IHDE_G MMG [facility] [id number] 022 [place] 01:22:00 01:22:00 0210 Medical Group 2021-04-11 2021-04-11 Dave Osborne [facility] [id number] Univers 00:00:00 00:00:00 (Out) SPECIALTY [id number] ity of [facility] [id number] [facility] AT [phone] [place] kathrynpiper [address] 2021-04-02 2021-04-02 Outpatient MAHAMED MCDOWELL 909 [place] 12:26:00 12:26:00 HN [id number] [facility] 2021-03-31 2021-03-31 Outpatient DAVE DELATORRE [facility] [id number] Univers 14:00:00 14:00:00 ity of [facility] 2021-03-13 2021-03-13 Outpatient IHDE_G MMG MMG [id number] [place] 04:46:00 04:46:00 0110 [facility] 2021-03-13 2021-03-13 [place] [id number] [place] 04:46:00 04:46:00 0111 [facility] 2021-03-13 2021-03-13 Kvng Guajardo MM [place] - [id number] [place] 00:00:00 00:00:00 MD: Seven Ortiz [facility], [facility] [address], [facility], Otolaryngol [facility] [address] , Ph. 2021-03-04 2021-03-04 Outpatient MAHAMED MCDOWELL 909 [place] 12:10:00 12:10:00 HN [id number] [facility] 2021-02-16 2021-02-16 Outpatient IHDE_G [facility] [id number] [place] 05:27:00 05:27:00 1216 [facility] 2021-02-16 2021-02-16 Outpatient IHDE_G [facility] [id number] [place] 05:27:00 05:27:00 1218 [facility] 2021-02-16 2021-02-16 Jesus [facility] [place] - [id number] M atagor 00:00:00 00:00:00 Kenrick Zazueta MD: Medical Medica luci [address] [facility] [address], [place] [address] , Ph. [phone] 2021-02-03 2021-02-03 Outpatient Astrid GRANT [facility] [id number] Univers 11:15:00 11:15:00 KARY catalino [facility] 2021-01-13 2021-01-13 Outpatient DAVE DELATORRE [facility] [id number] Univers 14:00:00 14:00:00 itcatalino [facility] 2020-12-13 2020-12-13 Outpatient MAHAMED MCDOWELL 909 [place] 02:48:00 02:48:00 HN [id number] [facility] 2020-11-23 2020-11-23 Outpatient A_[facility]rd [facility] [id number] [place] 03:10:00 03:10:00 0922 Medical Group 2020-11-23 2020-11-23 [id number] 021 [place] 03:10:00 03:10:00 0923 Medical Group 2020-11-23 2020-11-23 Kvng Guajardo [place] - [id number] [place] 00:00:00 00:00:00 : Seven Ortiz [facility], Network Group [address], [facility], Otolaryngol [facility] [address] , Ph. 2020-11-09 2020-11-09 Outpatient FERGUSON_JO MEHOP MEHOP 909 [place] 10:47:00 10:47:00 HN [id number] [facility] 2020-10-17 2020-10-17 Outpatient Astrid GRANT, [facility] [id number] Univers 15:00:00 15:00:00 KARY faulkner [facility] 2020-10-04 2020-10-04 Outpatient FERGUSON_JO MEHOP MEHOP 909 [place] 03:00:00 03:00:00 HN [id number] [facility] 2020-09-01 2020-09-01 Outpatient FERGUSON_JO MEHOP MEHOP [id number] [place] 02:07:00 02:07:00 HN 0701 [facility] 2020-08-31 2020-08-31 Outpatient FERGUSON_JO [facility]OP [facility] 909 [place] 12:16:00 12:16:00 HN 0630 [facility] 2020-08-23 2020-08-23 Outpatient A_[facility] [id number] 021 [place] 09:51:00 09:51:00 0622 Medical Group 2020-08-23 2020-08-23 [facility] [id number] 021 [place] 09:51:00 09:51:00 0907 Medical Group 2020-08-16 2020-08-16 Orders Doctor KIRSTEN [id number] [facility] 00:00:00 00:00:00 Only Unassigned, CARLA [id number] [place] [facility] [id number] Reggie as [id number] [place] [address] [place] 2020-08-09 2020-08-09 Outpatient Yan_W MMG [facility] [id number] 021 [place] 12:08:00 12:08:00 0608 [facility] 2020-07-21 2020-07-21 Outpatient [facility] 909 [place] 03:00:00 03:00:00 HN 0520 [facility] 2020-07-06 2020-07-06 Outpatient IHDE_G MMG [facility] [id number] 021 [place] 11:18:00 11:18:00 0505 [facility] 2020-06-30 2020-06-30 Outpatient FERGUSON_JO MEHOP [facility] 909 [place] 03:59:00 03:59:00 HN 0429 [facility] 2020-06-30 2020-06-30 Outpatient IHDE_G MMG [facility] [id number] 021 [place] 03:15:00 03:15:00 0429 [facility] 2020-06-30 2020-06-30 Outpatient IHDE_G MMG MMG [id number] 021 [place] 03:15:00 03:15:00 0501 [facility] 2020-06-30 2020-06-30 Jesus [facility] [place] - [id number] M [facility] 00:00:00 00:00:00 Kenrick Zazueta MD: [facility] [address] [facility] [address], [place] [address] , Ph. [phone] 2020-06-23 2020-06-23 Outpatient [facility] 909 [place] 02:11:00 02:11:00 HN 0422 [facility] 2020-06-17 2020-06-17 Outpatient [facility]USON[facility] 909 [place] 06:56:00 06:56:00 HN 0416 [facility] 2020-06-16 2020-06-16 [place] [id number] 021 [place] 02:42:00 02:42:00 0415 [facility] 2020-06-16 2020-06-16 [place] [id number] 021 [place] 02:42:00 02:42:00 0416 [facility] 2020-06-16 2020-06-16 Outpatient IHDE_G MMG MMG [id number] 021 [place] 02:42:00 02:42:00 0426 [facility] 2020-06-16 2020-06-16 Jesus [facility] [place] - [id number] M [place] 00:00:00 00:00:00 Kenrick Zazueta MD: Medical [facility] [address], [place] [address] , Ph. [phone] 2020-06-10 2020-06-10 [place] [id number] 021 [place] 04:56:00 04:56:00 0409 [facility] 2020-05-27 2020-05-27 Outpatient [facility]GUSON_JO [facility] 909 [place] 03:36:00 03:36:00 HN 0326 [facility] 2020-05-25 2020-05-25 Outpatient FERGUSON_JO [facility] 909 [place] 03:30:00 03:30:00 HN 0324 [facility] 2020-05-08 2020-05-08 Outpatient FERGUSON_JO [facility] 909 [place] 02:50:00 02:50:00 HN 0307 [facility] 2020-04-26 2020-04-26 [place] [id number] 021 [place] 02:42:00 02:42:00 0223 [facility] 2020-04-26 2020-04-26 Kelly Becerril [facility] [place] - [id number] M [place] 00:00:00 00:00:00 MD Luis: [address] [facility] [address] [address] , Ph. 2020-04-12 2020-04-12 Outpatient Sunny_Luis [facility] [id number] 021 [place] 12:23:00 12:23:00 0209 [facility] 2020-04-11 2020-04-11 Outpatient [facility] 909 [place] 04:04:00 04:04:00 HN 0208 [facility] 2020-03-29 2020-03-29 Outpatient [facility]ON[facility] 909 [place] 05:18:00 05:18:00 HN 0126 [facility] 2020-03-28 2020-03-28 Outpatient [facility] 909 [place] 05:42:00 05:42:00 HN 0125 [facility] 2020-03-28 2020-03-28 [facility] [place] - [id number] M [place] 00:00:00 00:00:00 Beverly Akins MD: [facility] [facility] [address] Manuel galloway , Ph. [phone] 2020-03-24 Outpatient [facility] 909 [place] 03:18:00 03:18:00 HN 0121 [facility] 2020-03-23 2020-03-23 Outpatient FERGUSON_JO MEHOP [facility] 909 [place] 11:49:00 11:49:00 HN 0120 [facility] 2020-03-09 2020-03-09 Outpatient FERGUSON_JO ME[facility]OP [facility] 909 [place] 03:43:00 03:43:00 HN 0106 [facility] h Program 2020-03-08 2020-03-08 Outpatient IHDE_G MMG MMG [id number] 021 [place] 03:24:00 03:24:00 0105 [facility] 2020-03-08 2020-03-08 Outpatient IHDE_G MMG MMG [id number] 021 [place] 03:24:00 03:24:00 0106 [facility] 2020-03-08 2020-03-08 Outpatient IHDE_G MMG MMG [id number] 021 [place] 03:24:00 03:24:00 0201 [facility] 2020-03-08 2020-03-08 Jesus MMG [place] - [id number] M [place] 00:00:00 00:00:00 Kenrick Zazueta MD: Medical [facility] [address], [place] [address] , Ph. [phone] 2020-02-18 2020-02-18 Outpatient IHDE_G MMG MMG [id number] 020 [place] 03:55:00 03:55:00 1217 [facility] 2020-02-18 2020-02-18 Outpatient IHDE_G MMG MMG [id number] 020 [place] 03:55:00 03:55:00 1219 [facility] 2020-02-18 2020-02-18 Outpatient IHDE_G MMG MMG [id number] 020 [place] 03:55:00 03:55:00 1223 [facility] 2020-01-22 2020-01-22 Outpatient Rutledge_L MMG MMG [id number] [place] 05:23:00 05:23:00 1120 [facility] 2020-01-22 2020-01-22 Outpatient Rutledge_L MMG MMG [id number] [place] 05:23:00 05:23:00 1128 [facility] 2020-01-22 2020-01-22 Outpatient Rutledge_L MMG MMG [id number] [place] 05:23:00 05:23:00 1202 [facility] 2020-01-22 2020-01-22 Outpatient Rutledge_L MMG MMG [id number] [place] 05:23:00 05:23:00 1209 [facility] 2020-01-21 2020-01-21 Outpatient IHDE_G MMG MMG [id number] 020 [place] 10:00:00 10:00:00 1119 [facility] 2020-01-21 2020-01-21 Jesus MMG [place] - [id number] M [place] 00:00:00 00:00:00 Kenrick Zazueta MD: Medical Medica l [address] [facility] [address], [place] [address] , Ph. [phone] 2020-01-20 2020-01-20 Outpatient IHDE_G MMG MMG [id number] 020 [place] 02:18:00 02:18:00 1118 [facility] 2020-01-05 2020-01-05 Outpatient IHDE_G MMG MMG [id number] 020 [place] 10:17:00 10:17:00 1103 [facility] 2019-12-31 2019-12-31 Outpatient FERGUSON_RACHAEL [facility]CDOW[facility] 909 [place] 04:35:00 04:35:00 HN 1029 da [facility] 2019-12-31 2019-12-31 Outpatient IHDE_G MMG MMG [id number] 020 [place] 04:35:00 04:35:00 1029 [facility] 2019-12-31 2019-12-31 Outpatient IHDE_G MMG MMG [id number] 020 [place] 04:35:00 04:35:00 1031 [facility] 2019-12-31 2019-12-31 Jesus MMG [place] - [id number] M [place] 00:00:00 00:00:00 Kenrick Zazueta MD: Medical Medica l [address] [facility] [address], [place] [address] , Ph. [phone] 2019-12-30 2019-12-30 Outpatient IHDE_G MMG MMG [id number] 020 [place] 06:15:00 06:15:00 1028 [facility] 2019-12-25 2019-12-25 [facility] [id number] 020 [place] 10:29:00 10:29:00 1023 Medical Group 2019-12-15 2019-12-15 Outpatient [facility] [id number] 020 [place] 12:33:00 12:33:00 1013 Medical Group 2019-12-15 2019-12-15 Outpatient FERGUSON_JO [facility]OP ME[facility] 909 [place] 04:48:00 04:48:00 HN 1013 [facility] 2019-12-15 2019-12-15 Jesus [facility] [place] - [id number] M [place] 00:00:00 00:00:00 Kenrick Zazueta MD: Medical Medica [address], [place] [address] , Ph. [phone] 2019-12-03 2019-12-03 Outpatient FERGUSON_JO [facility]OP ME[facility] 909 [place] 04:14:00 04:14:00 HN 1001 [facility] 2019-11-27 2019-11-27 Outpatient FERGUSON_JO MEHOP [facility] 909 [place] 05:15:00 05:15:00 HN 0925 [facility] 2019-11-20 2019-11-20 Outpatient FERGUSON_JO [facility]OP [facility] 909 [place] 10:23:00 10:23:00 HN 0918 [facility] 2019-11-18 2019-11-18 [facility] [id number] 020 [place] 11:04:00 11:04:00 0916 Medical Group 2019-11-18 2019-11-18 Outpatient A_[facility]rd [facility] [id number] 020 [place] 11:04:00 11:04:00 0925 Medical Group 2019-11-17 2019-11-17 Outpatient A_Byrd [facility] [id number] 020 [place] 05:15:00 05:15:00 0915 Medical Group 2019-11-17 2019-11-17 Kelly Becerril [facility] [place] - [id number] M [place] 00:00:00 00:00:00 MD Luis: [address] [place] - [address], [facility] [address] , Ph. 2019-11-03 2019-11-03 Outpatient A_Byrd [facility] [id number] 020 [place] 06:39:00 06:39:00 0901 [facility] 2019-11-03 2019-11-03 Kvng Guajardo [facility] [place] - [id number] [place] 00:00:00 00:00:00 : [facility] [address], [facility], Ot[facility]aryng[facility] [address] , Ph. 2019-10-30 2019-10-30 Outpatient FERGUSON_JO [facility]OP ME[facility] 909 [place] 12:08:00 12:08:00 HN 0828 [facility] 2019-10-27 2019-10-27 Outpatient A_[facility]rd [facility] [id number] 020 [place] 07:33:00 07:33:00 0825 Medical Group 2019-10-23 2019-10-23 Outpatient FERGUSON_JO MEHOP ME[facility] 909 [place] 11:17:00 11:17:00 HN 0821 [facility] 2019-10-23 2019-10-23 Outpatient A_Byrd [facility] [id number] 020 [place] 11:14:00 11:14:00 0821 [facility] 2019-10-22 2019-10-22 Outpatient A_Byrd [facility] [id number] 020 [place] 02:57:00 02:57:00 0820 [facility] 2019-10-20 2019-10-20 Outpatient FERGUSON_JO [facility]OP ME[facility] 909 [place] 01:57:00 01:57:00 HN 0818 [facility] 2019-10-18 2019-10-18 Outpatient FERGUSON_JO [facility]OP ME[facility] 909 [place] 02:10:00 02:10:00 HN 0816 [facility] 2019-10-07 2019-10-07 Outpatient A_Byrd MMG MMG [id number] 020 [place] 03:55:00 03:55:00 0805 [facility] 2019-09-08 2019-09-08 Outpatient FERGUSON_JO MEHOP ME[facility] 909 [place] 12:04:00 12:04:00 HN 0707 [facility] 2019-08-30 2019-08-30 Outpatient FERGUSON_JO MEHOP MEHOP 909 [place] 02:47:00 02:47:00 HN 0628 [facility] 2019-08-25 2019-08-25 Outpatient FERGUSON_JO MEHOP MEHOP 909 [place] 12:13:00 12:13:00 HN 0623 [facility] 2019-08-18 2019-08-18 Outpatient FERGUSON_JO MEHOP MEHOP 909 [place] 03:00:00 03:00:00 HN 0616 [facility] 2019-05-27 2019-05-27 Outpatient Shield MMG MMG [id number] 020 [place] 06:16:00 06:16:00 0325 Medical Group 2019-05-12 2019-05-12 Outpatient Shield MMG MMG [id number] 020 [place] 07:13:00 07:13:00 0310 Medical Group 2019-05-12 2019-05-12 Jesus MMG [place] - [id number] M [place] 00:00:00 00:00:00 Kenrick Zazueta MD: Medical Medica [address], [place] [address] , Ph. [phone] 2019-05-05 2019-05-05 Outpatient Shield MMG MMG [id number] 020 [place] 05:46:00 05:46:00 0303 Medical Group 2019-05-05 2019-05-05 Kelly Becerril MMG [place] - [id number] M [place] 00:00:00 00:00:00 MD Luis: [employer] [address] [place] [address] - [address], [facility], [facility] [address] , Ph. 2019-04-29 2019-04-29 [facility] [id number] 020 [place] 06:31:00 06:31:00 0226 Medical Group 2019-04-29 2019-04-29 [place] [id number] [place] 06:31:00 06:31:00 0302 da [facility] Group 2019-04-20 2019-04-20 Outpatient FERGUSON_JO MEHOP [facility] 909 [place] 05:19:00 05:19:00 HN 0615 [facility] 2019-04-20 2019-04-20 Outpatient FERGUSON_JO MEHOP [facility] 909 [place] 05:19:00 05:19:00 HN 0217 [facility] 2018-02-14 2018-02-14 Outpatient Shield [facility]G [facility] [id number] 020 [place] 11:22:00 11:22:00 0218 Medical Group Results Test Description Test Time Test Comments Results Result Comments Source Surgical pathology study 2020-06-17 07:02:00 Test Item Value Reference Range Interpretation Comme nts Surgical pathology study (test code = 47907-6) see emr pathology re port. [facility] W Auto Differential panel - [id number] 02:52:00 Test Item Value Reference Range Interpretation Comments white blood count (test code = 10.5 K/uL 4.0-11.5 white blood count) red blood count (test code = red 4.86 M/uL 3.80-5.20 blood count) hemoglobin (test code = 15.0 g/dL 10.5-15.7 hemoglobin) hematocrit (test code = 45.7 % 34.0-50.0 hematocrit) MCV [Entitic volume] (test code = 94.0 fL 86-100 12399-7) mean corpuscular hemoglobin (test 30.9 pg 26.2-33.4 code = mean corpuscular hemoglobin) mean corpuscular HGB conc (test 32.8 g/dL 30-34 code = mean corpuscular HGB conc) red cell distribution width (test 17.0 % 12.0-15.5 H code = red cell distribution width) platelet count (test code = 322 K/uL 165-450 platelet count) mean platelet volume (test code = 9.4 fL 9.4-12.6 mean platelet volume) Segmented neutrophils/100 59.2 % 44.4-80.1 leukocytes in Blood (test code = 68896-1) Immature granulocytes [#/volume] 0.0 K/uL 0.0-0.03 in Blood (test code = 36278-1) lymphocyte% (test code = 33.5 % 10.0-50.0 lymphocyte%) mono % (test code = mono %) 6.4 % 3.6-12.0 eos % (test code = eos %) 0.3 % 0.0-5.4 Basophils/100 leukocytes in 0.2 % 0.1-1.2 Unspecified specimen (test code = 50867-1) Band form neutrophils [#/volume] 6.20 K/uL 1.56-6.13 H in Blood (test code = 60939-0) Lymphocytes [#/volume] in 3.5 K/uL 1.18-3.74 Unspecified specimen by Automated count (test code = 85110-0) mono # (test code = mono #) 0.67 K/uL 0.24-0.86 eos # (test code = eos #) 0.03 K/uL 0.04-0.36 L basophil # (test code = basophil 0.02 K/uL 0.01-0.08 #) NRBC% (test code = NRBC%) 0 /100 WBC 0-0.2 NRBC# (test code = NRBC#) 0 K/uL [facility] method unspecified - [id number] 02:52:00NeutrophilsBandLymphocyteAtypical LymphMonocyteEosinophilBasophilMetamyelocyteMyelocytePromyelocyteBlastsNucleated Red Blood CellDifferential CommentAbs Neutrophil Count (Man)Abs Lymph Count (Man)Abs Monocyte Count (Man)Abs Eosinophil Count (Man)Abs Basophil Count (Man)Platelet EstimatePlatelet Morphol ogyPoikilocytosisAnisocytosisMacrocytosisTarget CellsStomatocyteToxic GranulationBurr CellsHypersegmented PolysRouleauToxic VacuolationSmudge Cells [facility] metabolic 1999 panel - Serum or Plasma 2020-06-16 02:52:00 Test Item Value Reference Range Interpretation Comments Glucose [Mass/volume] in Serum or 93 mg/dL 74-106 Plasma (test code = 2345-7) Urea nitrogen [Mass/volume] in 15 mg/dL 6-20 Serum or Plasma (test code = 3094-0) osmolality calculated,serum (test 278 mOsm/kg 280-300 L code = osmolality calculated,serum) creatinine (test code = 0.9 mg/dL 0.50-0.90 creatinine) glomerular filtration rate (test >60.00 code = glomerular filtration rate) Urea nitrogen/Creatinine [Mass 16.7 12-20 Ratio] in Serum or Plasma (test code = 3097-3) sodium level (test code = sodium 139 mmol/L 135-145 level) potassium level (test code = 4.3 mmol/L 3.5-5.2 potassium level) chloride level (test code = 103 mmol/L 98-108 chloride level) CO2 (test code = CO2) 26 mmol/L 21-32 anion gap (test code = anion gap) 14.3 mEq/L 12-20 calcium level (test code = 9.4 mg/dL 8.6-10.0 calcium level) total protein (test code = total 7.2 g/dL 6.6-8.7 protein) albumin (test code = albumin) 4.3 g/dL 3.5-5.2 globulin (test code = globulin) 2.9 gm/dL A/G ratio (test code = A/G ratio) 1.5 >1.0 bilirubin,total (test code = 0.4 mg/dL 0.0-1.2 bilirubin,total) AST/SGOT (test code = AST/SGOT) 19 U/L 15-32 Alanine aminotransferase 35 U/L 0-33 H [Enzymatic activity/volume] in Serum or Plasma (test code = 1742-6) Alkaline phosphatase [Enzymatic 87 U/L 35-105 activity/volume] in Serum or Plasma (test code = 6768-6) [facility] metabolic 1999 panel - Serum or Plasma 2020-01-14 11:07:00 Test Item Value Reference Range Interpretation Comments Glucose [Mass/volume] in Serum or 94 mg/dL 74-106 Plasma (test code = 2345-7) Urea nitrogen [Mass/volume] in 18 mg/dL 6-20 Serum or Plasma (test code = 3094-0) osmolality calculated,serum (test 285 mOsm/kg 280-300 code = osmolality calculated,serum) creatinine (test code = 0.9 mg/dL 0.50-0.90 creatinine) glomerular filtration rate (test >60.00 code = glomerular filtration rate) Urea nitrogen/Creatinine [Mass 20.0 12-20 Ratio] in Serum or Plasma (test code = 3097-3) sodium level (test code = sodium 142 mmol/L 135-145 level) potassium level (test code = 4.4 mmol/L 3.5-5.2 potassium level) chloride level (test code = 108 mmol/L 98-108 chloride level) CO2 (test code = CO2) 23 mmol/L 21-32 anion gap (test code = anion gap) 15.4 mEq/L 12-20 calcium level (test code = 9.6 mg/dL 8.6-10.0 calcium level) total protein (test code = total 6.9 g/dL 6.6-8.7 protein) albumin (test code = albumin) 4.4 g/dL 3.5-5.2 globulin (test code = globulin) 2.5 gm/dL A/G ratio (test code = A/G ratio) 1.8 >1.0 bilirubin,total (test code = <0.3 0.0-1.2 bilirubin,total) AST/SGOT (test code = AST/SGOT) 25 U/L 15-32 Alanine aminotransferase 26 U/L 0-33 [Enzymatic activity/volume] in Serum or Plasma (test code = 1742-6) Alkaline phosphatase [Enzymatic 92 U/L 35-105 activity/volume] in Serum or Plasma (test code = 6768-6) [facility] W Auto Differential panel - [id number] 10:23:00 Test Item Value Reference Range Interpretation Comments white blood count (test code = 7.5 K/uL 4.0-11.5 white blood count) red blood count (test code = red 4.42 M/uL 3.80-5.20 blood count) hemoglobin (test code = 13.6 g/dL 10.5-15.7 hemoglobin) hematocrit (test code = 42.2 % 34.0-50.0 hematocrit) MCV [Entitic volume] (test code = 95.5 fL 86-100 20848-5) mean corpuscular hemoglobin (test 30.8 pg 26.2-33.4 code = mean corpuscular hemoglobin) mean corpuscular HGB conc (test 32.2 g/dL 30-34 code = mean corpuscular HGB conc) red cell distribution width (test 11.5 % 12.0-15.5 L code = red cell distribution width) platelet count (test code = 314 K/uL 165-450 platelet count) mean platelet volume (test code = 9.5 fL 9.4-12.6 mean platelet volume) Segmented neutrophils/100 43.4 % 44.4-80.1 L leukocytes in Blood (test code = 92144-8) Immature granulocytes [#/volume] 0.0 K/uL 0.0-0.03 in Blood (test code = 92599-7) lymphocyte% (test code = 44.3 % 10.0-50.0 lymphocyte%) mono % (test code = mono %) 8.5 % 3.6-12.0 eos % (test code = eos %) 3.2 % 0.0-5.4 Basophils/100 leukocytes in 0.5 % 0.1-1.2 Unspecified specimen (test code = 59996-2) Band form neutrophils [#/volume] 3.24 K/uL 1.56-6.13 in Blood (test code = 60565-3) Lymphocytes [#/volume] in 3.3 K/uL 1.18-3.74 Unspecified specimen by Automated count (test code = 04402-3) mono # (test code = mono #) 0.64 K/uL 0.24-0.86 eos # (test code = eos #) 0.24 K/uL 0.04-0.36 basophil # (test code = basophil 0.04 K/uL 0.01-0.08 #) NRBC% (test code = NRBC%) 0 /100 WBC 0-0.2 NRBC# (test code = NRBC#) 0 K/uL [facility], method unspecified - [id number] 10:23:00NeutrophilsLymphocyteMonocytePlatelet EstimatePlatelet MorphologyHypochromasiaGiant PlateletsTonsil HospitalgoWhitfield Medical Surgical HospitalUrinalysis Complete 2016-10-04 21:23:00 Test Item Value Reference Range Interpretation Comments Color (test code = COLOR) Yellow Yellow,Straw,Pl N yellow Clarity (test code = Clear Clear N CLAR) Specific [place] (test 1.020 1.001-1.035 N code = SPGR) pH (test code = PH) 5.0 5.0-9.0 N Ketone (test code = KET) Negative mg/dL Negative N Glucose (test code = Negative mg/dL Negative N GLUCUR) Protein (test code = Negative mg/dL Negative N PROT) Bilirubin (test code = Negative mg/dL Negative N BILI) Occult Blood (test code = Negative Negative N UDOB) Urobilinogen (test code = 0.2 mg/dL 0.2-1.0 N UROB) Nitrite (test code = NIT) Negative Negative N Leuk Esterase (test code Small Negative A = LEUK) Micros Exam (test code = Indicated MEXAM) Epithelial Cells (test 3-5 /LPF 0-30 A code = EPI) WBC, Urine (test code = 2-5 /HPF 0-5 A UWBC) RBC, Urine (test code = None Seen /HPF 0-5 A URBC) Bacteria (test code = Few /HPF BACT) Glycosylated [id number] 21:21:00 Test Item Value Reference Range Interpretation Comments HBA1c (test code = HBA1C) 4.9 % 4.8-5.9 N Thyroid Stimulating Hormone (TSH)2016-10-04 21:00:00 Test Item Value Reference Range Interpretation Comments TSH (test code = TSH) 3.07 mIU/mL 0.270-4.200 N Lipid [id number] 20:56:00 Test Item Value Reference Range Interpretation Comments Cholesterol (test 185 mg/dL 0-200 N code = CHOL) Triglycerides (test 250 mg/dL 9-200 H code = TRIG) HDL (test code = 40 mg/dL 50-60 L HDL) Chol/HDL (test code 4.6 Ratio 0.0-4.4 H = CHOLPHDL) LDL, Calculated 95 0-130 N (NOTE)RISK O F HEART (test code = LDLC) DISEASEPu blished by [place] Heart AssociationAnal yte Optimal Boderli ne Increased RiskC HOL <200 200-239 >240TRI G <150 150-199 >200HDL Male: >60 <40HDL Fema le: >60 <50LDL <100 130 -159 >160LDL NEAR OP TIMAL IS 100-129 VLDL (test code = 50 mg/dL 5-40 H VLDL) LDL/HDL (test code = 2 LDLPHDL) [id number] 20:56:00 Test Item Value Reference Range Interpretation Comments Barry (test code = LI) 0.37 mmol/L 0.6-1.2 L Comprehensive Metabolic [id number] 20:56:00 Test Item Value Reference Range Interpretation Comments Sodium (test code = 141 mmol/L 135-145 N NA) Potassium (test 4.2 mmol/L 3.5-5.1 N code = K) Chloride (test code 106 mmol/L 98-105 H = CL) Carbon Dioxide 24 mmol/L 22-29 N (test code = CO2) Glucose (test code 110 mg/dL 70-115 N = GLU) Blood Urea Nitrogen 12 mg/dL 6-20 N (test code = BUN) Creatinine (test 0.9 mg/dL 0.5-0.9 N code = CREAT) Calcium (test code 9.2 mg/dL 8.3-10.5 N = CA) Prot Total (test 6.5 g/dL 6.4-8.3 N code = TP) Albumin (test code 4.0 g/dL 3.5-5.2 N = ALB) A/G Ratio (test 1.6 Ratio code = AGRATIO) Globulin (test code 2.5 2.9-3.1 L = GLOB) Bili Total (test 0.2 mg/dL 0.1-0.9 N code = TBIL) Alk Phos (test code 112 U/L 35-104 H = APHOS) AST (test code = 21 U/L 1-32 N AST) ALT (test code = 25 U/L 1-33 N ALT) BUN/Creatinine 13.3 Ratio (test code = BCRATIO) Anion Gap (test 11 mmol/L 7-16 N code = AGAP) Estimated GFR (test >60 eGFR (es timated code = GFR) mL/min/1.73m2 Glomerular Jonathon tration Rate) is an est imated value,calculate d from the patient's s oliver creatinine usin g the MDRD equation.I t is NOT the patient 's actual GFR. The eGFR provides a more clinicallyusefu l measure of kidn ey disease than se rum creatinine alone.This calculation marnie es sex and race into account, if the informationis provided. If th e race is not provided , and the patient isAfrican-Ameri can, multiply by 1.2 12. If sex is not prov ided, and thepatient is female, multipl y by 0.742. Results for patients <18 ye ars ofage have not been validated by th e MDRD study and shoul d be interpretedwith caution.eGFR Re sult Interpretation: eGFR > or = 60 is in t he Normal RangeeGF R < 60 may mean kidney diseaseeGFR < 1 5 may mean kidney failureRange s recommended by the [employer],http ://nkd ep.nih.gov CBC with [id number] 20:49:00 Test Item Value Reference Range Interpretation Comments WBC (test code = WBC) 7.6 K/cumm 4.4-10.5 N RBC (test code = RBC) 4.15 M/cumm 3.75-5.20 N Hemoglobin (test code = HGB) 13.4 gm/dL 12.2-14.8 N Hematocrit (test code = HCT) 42.2 % 36.5-44.4 N MCV (test code = MCV) 101.5 fL 80-100 H MCH (test code = MCH) 32.4 pg 27.0-32.5 N MCHC (test code = MCHC) 31.9 g/dL 32.0-37.5 L RDW (test code = RDW) 13.3 % 11.5-14.5 N Platelet Count (test code = 307 K/cumm 140-440 N PLTCT) MPV (test code = MPV) 10.1 fL Diff Method (test code = DIFFM) Auto Neutrophil (test code = NEUT) 51.6 % 36-70 N Lymphocyte (test code = LYMPH) 34.2 % 12-44 N Monocyte (test code = MONO) 9.8 % 0-11 N Eosinophil (test code = EOS) 3.4 % 0-7 N Basophil (test code = BASO) 1.1 % 0-2 N Neutro Abs (test code = ANEUT) 3.9 K/cumm 1.6-7.4 N Lymph Abs (test code = ALYMPH) 2.6 K/cumm 0.5-4.6 N Dickens Abs (test code = AMONO) 0.8 K/cumm 0.0-1.2 N Eos Abs (test code = AEOS) 0.26 K/cumm 0.00-0.74 N Baso Abs (test code = ABASO) 0.1 K/cumm 0.00-0.21 N
--- NOTE | 2022-01-22 19:41 | RAD REPORT ---
EXAM DESCRIPTION: RAD - Chest Single View - 01/22/2022 7:36 pm CLINICAL HISTORY: left hand swelling Chest pain. COMPARISON: No comparisons FINDINGS: Portable technique limits examination quality. The lungs are grossly clear. The heart is upper limit of normal in size. No displaced fractures. IMPRESSION: No acute intrathoracic process suspected.
--- NOTE | 2022-01-22 19:42 | RAD REPORT ---
EXAM DESCRIPTION: RAD - Hand Left 3 View - 01/22/2022 7:36 pm CLINICAL HISTORY: Pain COMPARISON: No comparisons FINDINGS: Mild to moderate soft tissue swelling along the dorsum of the hand. No fracture, dislocati on or aggressive marrow lesion.
--- NOTE | 2022-01-22 20:34 | RAD REPORT ---
EXAM DESCRIPTION: US - UPPER EXTREMITY VENOUS UNILATE - 01/22/2022 7:40 pm CLINICAL HISTORY: SWELLING Arm swelling and edema. COMPARISON: No comparisons FINDINGS: Left upper extremity venous system was interrogated with Doppler technique. Normal flow, c ompressibility and augmentation was noted. There is no DVT present. IMPRESSION: No evidence of left upper extremity deep venous thrombosis.
[2022-01-22 21:25] LABS: Absolute Lymphocytes (CBC) 3.2 K/uL (0.7-4.9); Hematocrit 46.7 % (36.0-45.0); Lymphocytes % 29.6 % (15.3-44.8); MCV 96.1 fL (80-100); MPV 7.8 fL (7.6-11.3); RBC Red Blood Cell Count 4.86 M/uL (3.86-4.86)
--- NOTE | 2022-01-22 22:46 | ER ---
Nurse's Notes [facility] Name: Tash Manuel Age: 56 yrs Sex: Female : 1965 Arrival Date: 01/22/2022 Time: 18:00 Bed 10 Private MD: Diagnosis: Pain in left hand;Localized swelling, mass and lump, left upper limb-left hand Presentation: 01/22 18:49 Chief complaint: Patient states: left hand swelling that comes and goes x2 weeks; does jh5 have hx arthritis. Coronavirus screen: Vaccine status: Patient reports being unvaccinated. Client denies travel out of the [place] in the last 14 days. Ebola Screen: Patient negative for fever greater than or equal to 101.5 degrees Fahrenheit, and additional compatible Ebola Virus Disease symptoms Patient denies exposure to infectious person. Patient denies travel to an Ebola-affected area in the 21 days before illness onset. Initial Sepsis Screen: Does the patient meet any 2 criteria? No. Patient's initial sepsis screen is negative. Does the patient have a suspected source of infection? No. Patient's initial sepsis screen is negative. Risk Assessment: Do you want to hurt yourself or someone else? Patient reports no desire to harm self or others. 18:49 Method Of Arrival: Ambulatory [facility] 18:49 Acuity: NIKOS 3 jh5 Triage Assessment: 18:50 General: Appears in no apparent distress. uncomfortable, obese, well groomed, well jh5 developed, Behavior is calm, cooperative, appropriate for age. Pain: Complains of pain in left hand. Historical: - PMHx: 18:50 Arthritis; Asthma; jh5 - Immunization history:: Adult Immunizations up to date. - Social history:: Smoking status: Patient denies any tobacco usage or history of. Screenin:32 Abuse screen: Denies threats or abuse. Nutritional screening: No deficits noted. vc1 Tuberculosis screening: No symptoms or risk factors identified. Fall Risk None identified. Assessment: 23:33 Reassessment: Patient and/or family updated on plan of care and expected duration. Pain vc1 level reassessed. Patient is alert, oriented x 3, equal unlabored respirations, skin warm/dry/pink. Patient states symptoms have improved. Vital Signs: 18:49 BP 145 / 85; Pulse 86; Resp 16; Temp 98.7; Pulse Ox 98% ; Weight 90.72 kg; Height 5 ft. jh5 3 in. (160.02 cm); Pain 6/10; 18:49 Body Mass Index 35.43 (90.72 kg, 160.02 cm) 5 ED Course: 18:00 Patient arrived in ED. as 18:10 Garry London PA is PHCP. cp 18:10 Ant Salas MD is Attending Physician. cp 18:50 Triage completed. jh5 18:50 Arm band placed on right wrist. jh5 19:38 XRAY Hand LEFT 3 View In Process Unspecified. EDMS 19:38 XRAY Chest (1 view) In Process Unspecified. EDMS 19:42 UPPER EXTREMITY VENOUS UNILATE In Process Unspecified. EDMS 20:03 Shama Kwok, RN is Primary Nurse. kb3 20:39 Missed attempt(s): 20 gauge in right forearm. 3 21:19 BMP Sent. jh5 21:19 CBC with Diff Sent. jh5 21:19 Inserted saline lock: 22 gauge in right wrist, using aseptic technique. 5 22:47 Garry Mcduffie MD is Attending Physician. cp 23:22 Velcro wrist splint applied to left wrist. mb4 23:32 No provider procedures requiring assistance completed. IV discontinued, intact, vc1 bleeding controlled, No redness/swelling at site. Pressure dressing applied. Administered Medications: 23:31 Drug: Ketorolac 15 mg Route: IVP; Site: right wrist; vc1 23:32 Follow up: Response: Medication administered at discharge. vc1 Medication: 23:33 VIS not applicable for this client. vc1 Outcome: 22:46 Discharge ordered by MD. cp 23:32 Discharged to home ambulatory, with family. vc1 23:32 Condition: good 23:32 Discharge instructions given to patient, Instructed on discharge instructions, follow up and referral plans. medication usage, Demonstrated understanding of instructions, follow-up care, medications, Prescriptions given X 1. 23:33 Patient left the ED. vc1 Signatures: Dispatcher [employer] EDMS Juju Roque as Garry London PA PA cp Es Le mb4 Arleen Templeton RN RN 5 Sun Mehta RN RN vc1 Daysi Burger RN RN 3 Sundar, Shama, RN RN kb3
--- NOTE | 2022-01-22 22:47 | EDPHYS ---
Physician Documentation [facility] Name: Tash Manuel Age: 56 yrs Sex: Female : 1965 Arrival Date: 01/22/2022 Time: 18:00 Bed 10 Private MD: ED Physician Grary Mcduffie HPI: 01/22 19:00 This 56 yrs old Female presents to ER via Ambulatory with complaints of Hand Swelling. cp 19:00 The patient or guardian reports swelling, tenderness. The complaints affect the dorsum cp of left hand. Context: resulted from an unknown cause. Onset: The symptoms/episode began/occurred 2 week(s) ago, waxes and wanes. Associated signs and symptoms: Pertinent negatives: cyanosis distally, decreased sensation distally, fever, injury. Severity of symptoms: in the emergency department the symptoms are unchanged, despite home interventions. Historical: - PMHx: 18:50 Arthritis; Asthma; jh5 - Immunization history:: Adult Immunizations up to date. - Social history:: Smoking status: Patient denies any tobacco usage or history of. ROS: 19:05 Constitutional: Negative for body aches, chills, fever, poor PO intake. cp 19:05 Eyes: Negative for injury, pain, redness, and discharge. cp 19:05 ENT: Negative for drainage from ear(s), ear pain, sore throat, difficulty swallowing, difficulty handling secretions. 19:05 Neck: Negative for pain with movement, pain at rest, stiffness. 19:05 Cardiovascular: Negative for chest pain, palpitations. 19:05 Respiratory: Negative for cough, shortness of breath, wheezing. 19:05 Abdomen/GI: Negative for abdominal pain, nausea, vomiting, and diarrhea. 19:05 MS/extremity: Positive for decreased range of motion, swelling, tenderness, of the dorsum of left hand, Negative for injury or acute deformity, paresthesias. 19:05 Skin: Negative for cellulitis, rash. 19:05 Neuro: Negative for numbness, weakness. 19:05 All other systems are negative. Exam: 19:10 Constitutional: The patient appears in no acute distress, alert, awake, cp non-diaphoretic, non-toxic, well developed, well nourished, uncomfortable. 19:10 Head/Face: Normocephalic, atraumatic. cp 19:10 Neck: ROM/movement: is normal, is supple, without pain, no range of motions limitations, no nuchal rigidity. 19:10 Chest/axilla: Inspection: normal. 19:10 Cardiovascular: Rate: normal, Rhythm: regular, Pulses: Pulses are 2+ in left radial artery. Edema: is not appreciated, JVD: is not appreciated. 19:10 Respiratory: the patient does not display signs of respiratory distress, Respirations: normal, no use of accessory muscles, no retractions, labored breathing, is not present, Breath sounds: are clear throughout, no decreased breath sounds, no stridor, no wheezing. 19:10 Back: pain, is absent, ROM is normal. 19:10 Musculoskeletal/extremity: Extremities: grossly normal except: noted in the dorsum left hand: swelling, tenderness, pain along dorsum left thumb, ROM: limited active range of motion, in the left hand, Perfusion: the extremity is normally perfused throughout, the left hand Sensation intact. 19:10 Skin: cellulitis, is not appreciated, no rash present. Vital Signs: 18:49 BP 145 / 85; Pulse 86; Resp 16; Temp 98.7; Pulse Ox 98% ; Weight 90.72 kg; Height 5 ft. jh5 3 in. (160.02 cm); Pain 6/10; 18:49 Body Mass Index 35.43 (90.72 kg, 160.02 cm) jh5 MDM: 18:50 Patient medically screened. cp 22:45 Data reviewed: vital signs, nurses notes, lab test result(s), radiologic studies, plain cp films, ultrasound. 22:45 Differential diagnosis: closed fracture, contusion, cellulitis, DVT. Test cp interpretation: by ED physician or midlevel provider: plain radiologic studies. Counseling: I had a detailed discussion with the patient and/or guardian regarding: the historical points, exam findings, and any diagnostic results supporting the discharge/admit diagnosis, lab results, radiology results, the need for outpatient follow up, a family practitioner, to return to the emergency department if symptoms worsen or persist or if there are any questions or concerns that arise at home. Response to treatment: the patient's symptoms have mildly improved after treatment, and as a result, I will discharge patient. 01/22 18:49 Order name: CBC with Diff; Complete Time: 22:35 cp 01/22 22:35 Interpretation: Normal except: HGB 15.7; HCT 46.7. cp 01/22 18:49 Order name: BMP; Complete Time: 22:35 cp 01/22 18:49 Order name: XRAY Hand LEFT 3 View; Complete Time: 20:08 cp 01/22 18:49 Order name: XRAY Chest (1 view); Complete Time: 20:08 cp 01/22 20:08 Interpretation: Report review. cp 01/22 19:42 Order name: UPPER EXTREMITY VENOUS UNILATE; Complete Time: 20:57 EDMS 01/22 18:49 Order name: IV; Complete Time: 21:19 cp 01/22 22:36 Order name: Splint - Wrist; Complete Time: 23:32 cp Administered Medications: 23:31 Drug: Ketorolac 15 mg Route: IVP; Site: right wrist; vc1 23:32 Follow up: Response: Medication administered at discharge. vc1 Disposition Summary: 01/22/22 22:46 Discharge Ordered Location: Home cp Problem: new cp Symptoms: have improved cp Condition: Stable cp Diagnosis - Pain in left hand cp - Localized swelling, mass and lump, left upper limb - left hand cp Followup: cp - With: Private Physician - When: 2 - 3 days - Reason: Recheck today's complaints Discharge Instructions: - Discharge Summary Sheet cp - Hand Pain cp Forms: - Medication Reconciliation Form cp - Thank You Letter cp - Antibiotic Education cp - Prescription Opioid Use cp Prescriptions: - Diclofenac Sodium 75 mg Oral Tablet Sustained Release - take 1 tablet by ORAL route 2 times per day; 30 tablet; Refills: 0, Product cp Selection Permitted Signatures: Dispatcher [employer] EDMS Garry London PA PA cp Arleen Templeton, RN RN jh5 Sun Mehta RN RN vc1 Corrections: (The following items were deleted from the chart) 19:41 18:50 Extremity Venous Uni [email or web address] ordered. EDMS EDMS
[2022-01-22] MEDS ORDERED: KETOROLAC 30 MG/ML INJ ONE (23:21)
[2022-01-22 23:39] VITALS: BP 145/85; TEMP 98.7; O2SAT 98
== END 2022-01-22 23:33 | disposition home or self-care (01) ==
LOC: ER 17:58
DX: R22.32 Localized swelling, mass and lump, left upper limb (principal)
CPT/HCPCS: 36415; 71045; 80048; 85025; 93971; 96374; 99284

== ENCOUNTER 2022-05-03 19:05 | Emergency (ER) | payer OTHER ==
--- OUTSIDE RECORDS SUMMARY | 2022-05-03 19:12 | XMS REPORT | Continuity of Care Document ---
:1965 Author Organization [facility] t Address [address] [place] [address] Care Team Providers Name Role Phone KELLY MCCABE Primary Care Physician Unavailable Che Madison Attending Clinician Unavailable Nimo Marinelli Attending Clinician Unavailable KARY GRANT Attending Clinician Unavailable Doctor Unassigned, [place] Attending Clinician Unavailable JÚNIOR DANIELS Attending Clinician Unavailable JÚNIOR DANIELS Attending Clinician Unavailable Júnior Daniels MD Attending Clinician ZAIDA JAMES Attending Clinician Unavailable Audiology, Reggie Attending Clinician Unavailable Sol Hayes MD Attending Clinician SOL HAYES Attending Clinician Unavailable JOE Attending Clinician Unavailable Yusuf_Patric Attending Clinician Unavailable VENICE_G Attending Clinician Unavailable Dave Hensley MD Attending Clinician DAVE HENSLEY Attending Clinician Unavailable A_Bybrunilda Attending Clinician Unavailable Bennett_Tuan Attending Clinician Unavailable Victorina_Luci Attending Clinician Unavailable Jerrod Attending Clinician Unavailable HAIM LOPEZ Attending Clinician Unavailable JOE Admitting Clinician Unavailable Yusuf_H Admitting Clinician Unavailable IHDE_G Admitting Clinician Unavailable A_Bybrunilda Admitting Clinician Unavailable Bennett_Tuan Admitting Clinician Unavailable Victorina_Luci Admitting Clinician Unavailable Jerrod Admitting Clinician Unavailable HAIM LOPEZ Admitting Clinician Unavailable Payers Payer Name Policy Type Policy Number Effective Date Expiration Date S song [facility] [id number] 2016 PLUS 00:00:00 [place] [id number] [facility] - C [facility] Plus [facility] [id number] 2020 COMM[place]AN [place] 00:00[place]00 [place] [facility] [id number] - [facility] (INSTITUTIONAL) [place] [facility] [id number] - [facility] [id number] COMMUNITY PLAN - 00:00:00 [facility] (MEDICAID HMO) Problems Condition Condition Condition Status Onset Resolution Last Treating Co mments Source Name Details Category Date Date Treatment Clinician Date Acute Acute Problem Active [place] bronchitis Bronchitis 2-14 da 00:00: Medical 00 Group Peripheral Peripheral Problem Active [facility] nerve Nerve 2-23 da disease Disease 00:00: Medical 00 Group Skin Skin Problem Active [place] lesion Lesion 2-23 da 00:00: Medical 00 Group Bipolar Bipolar Problem Active [place] disorder, Disorder, 1-25 da most Most 00:00: [facility] recent Recent 00 al episode Episode Health depression Depression Ou treac h Program Benign Benign Problem Active [place] essential Essential 9-15 da hypertensi Hypertensi 00:00: Me dical on Group Herpes Herpes Problem Active [place] simplex Simplex 3 da 00:00: Medical Group Bilateral Bilateral Problem Active [facility] tinnitus Tinnitus 05-04 da 00:00: Medical Group Seasonal Seasonal Problem Active [place] [facility] allergy Allergy 05-04 da 00:00: Medical Group Asthma Asthma Problem Active [place] 3 da 00:00: Medical Group Gastroesop Gastroesop Problem Active [facility] hageal hageal 05-04 da reflux Reflux 00:00: Medical disease Disease 00 Group without without esophagiti Esophagiti s s Chronic Chronic Problem Active [facility] constipati Constipati 05-04 da on 00:: Medical Group Menopausal Menopausal Problem Active [facility] syndrome Syndrome 05-04 da 00:00: Medical Group Bursitis Bursitis Problem Active [place] of hip of Hip 03-20 da 00:00: Medical Group [id number] Sleep Problem Common apnea with Spirit use of - [facility] continuous [facility] positive [facility] airway Medical pressure Center (CPAP) [id number] Seasonal Problem Comm on allergic Spirit rhinitis, - [facility] unspecifie d [facility] [id number] Vitamin D Problem Comm on deficiency Spirit [facility] [id number] Anxiety Problem Common Spirit [facility] [id number] Moderate Problem Comm on persistent Spirit asthma - [facility] with acute [facility] [id number] Insomnia, Problem Com mon unspecifie Spirit d type - [facility] [id number] Chronic Problem Common fatigue Spirit - [facility] [id number] Mixed Problem Common hyperlipid Spirit emia - [facility] [id number] Mixed Problem Common incontinen Spirit ce urge - [facility] and stress [facility] Bipolar Bipolar Problem Active [place] disorder Disorder [...] Medical s Branch Morphine Propensi Active Rash 2015-03 Univer s ty to 03-25 ity of adverse 00:00: [place] reaction 00 Medical s Branch FENTANYL DRUG Active Rash 2015-03 Univers INGREDI 03-25 ity of 00:00: [place] 00 Medical Branch MORPHINE DRUG Active Rash 2015-03 Univers INGREDI 03-25 ity of 00:00: [place] 00 Medical Branch morphine morphine Active rash [facility] - [facility] fentanyl fentanyl Active rash [facility] Spirit [facility]I [facility] Fentanyl Allergy Active [place] to da substan Medical e Group Morphine Allergy Active [place] to da substan Medical e Group Social History Social Habit Start Date Stop Date Quantity Comments Source History of Tobacco [facility] - [facility] Use [facility] Sex Assigned At Common Sp derick - [facility] Exposure to 2021-08-11 2021-08-21 Not sure [facility] SARS-CoV-2 (event) 00:00:00 14:36:00 [facility] Alcohol intake 2017-02-05 2017-02-05 0 /d [facility] 00:00:00 00:00:00 [facility] Branch Smoking Status Start Date Stop Date Source Former Smoker 2022-02-01 00:00:00 2022-02-01 00:00:00 [facility] pirit - [facility] Medications Ordered Filled Start Stop Current Ordering [...] MG 00:00: 00:00 00 :00 Myrbetriq Myrbetriq 2021-0 2021- No 1{table QD Myrbetriq 25 MG 25 MG 10-05 t} 25 MG 00:00: 00:00 00 :00 valACYclovi valACYclovi 2021-0 2021- No BID valACYclov r HCl 500 r HCl 500 09-12 ir HCl 500 MG MG 00:00: 00:00 MG 00 :00 valACYclovi valACYclovi 2021-0 2021- No BID valACYclov r HCl 500 r HCl 500 09-12 ir HCl 500 MG MG 00:00: 00:00 MG 00 :00 Oxybutynin Oxybutynin 2021-0 No 1{table QD Oxybutynin Chloride ER Chloride ER 7-07 t} Chloride 10 MG 10 MG 00:00: ER 10 MG 00 Oxybutynin Oxybutynin 2021-0 No 1{table QD Oxybutynin Chloride ER Chloride ER 7-07 t} Chloride 10 MG 10 MG 00:00: ER 10 MG 00 Oxybutynin Oxybutynin 2021-0 No 1{table QD Oxybutynin Chloride ER Chloride ER 7-07 t} Chloride 10 MG 10 MG 00:00: ER 10 MG 00 Bactrim DS Bactrim DS 2021-2021- No 1{table BID Bactrim DS 800-160 MG 800-160 MG 08-17 t} 800-160 MG 00:00: 00:00 00 :00 Advair Advair 2021-0 No 1{puff} BID Advair Diskus Diskus 08-07 Diskus 250-50 250-50 00:00: 250-50 MCG/DOSE MCG/DOSE 00 MCG/DOSE Albuterol Albuterol 2021-0 No 2{puffs Albuterol Sulfate HFA Sulfate HFA 08-07 } Sulfate 108 (90 108 (90 00:00: HFA 108 Base) Base) 00 (90 Base) MCG/ACT MCG/ACT MCG/ACT Montelukast Montelukast 2021-0 No 1{table QD Montelukas Sodium 10 Sodium 10 08-07 t} t Sodium MG MG 00:00: 10 MG 00 Albuterol Albuterol 2022-0 No 2{puffs Albuterol Sulfate HFA Sulfate HFA 08-07 } Sulfate 108 (90 108 (90 00:00: HFA 108 Base) Base) 00 (90 Base) MCG/ACT MCG/ACT MCG/ACT Montelukast Montelukast No 1{table QD Montelukas Sodium 10 Sodium 10 08-07 t} t Sodium MG MG 00:00: 10 MG 00 Advair Advair No 1{puff} BID Advair Diskus Diskus 08-07 Diskus 250-50 250-50 00:00: 250-50 MCG/DOSE MCG/DOSE 00 MCG/DOSE Ipratropium Ipratropium 2021- No 2{spray TID Ipratropiu [place]ka 08-07 s_in_ea m [place] 0.06 % 0.06 % 00:00: 00:00 ch_nost 0.06 % 00 :00 ril} Ipratropium Ipratropium 2021- No 2{spray TID Ipratropiu [place]oul[place] 08-07 s_in_ea m [place] 0.06 % 0.06 % 00:00: 00:00 ch_nost 0.06 % 00 :00 ril} buPROPion Yes Univers XL 300 mg 4-03 ity of 24 hr 00:00: [place] tablet [facility] OXcarbazepi Yes Univer s ne 300 mg 4-03 ity of tablet 00:00: [place] [facility] buPROPion Yes Univers XL 300 mg 4-03 ity of 24 hr 00:00: [place] tablet [facility] OXcarbazepi Yes Univer s ne 300 mg 4-03 ity of tablet 00:00: [place] [facility] buPROPion Yes Univers XL 300 mg 4-03 ity of 24 hr 00:00: [place] tablet [facility] OXcarbazepi Yes Univer s ne 300 mg 4-03 ity of tablet 00:00: [place] [facility] buPROPion Yes Univers XL 300 mg 4-03 ity of 24 hr 00:00: [place] tablet [facility] OXcarbazepi Yes Univer s ne 300 mg 4-03 ity of tablet 00:00: [place] [facility] buPROPion 2017-0 Yes Univers XL 300 mg 4-03 ity of 24 hr 00:00: [place] tablet Medical Branch OXcarbazepi 20170 Yes Univer s ne 300 mg 4-03 ity of tablet 00:00: [place] [facility] buPROPion 201[address] Yes Univers XL 300 mg 4-03 ity of 24 hr 00:00: [place] tablet Medical Branch OXcarbazepi 2017-0 Yes Univer s ne 300 mg 4-03 ity of tablet 00:00: [place] [facility] diclofenac 201[address] Yes Univers 75 mg EC 3-28 ity of tablet 00:00: [place] [facility] diclofenac 2017-0 Yes Univers 75 mg EC 3-28 ity of tablet 00:00: [place] [facility] diclofenac 201[address] Yes Univers 75 mg EC 3-28 ity of tablet 00:00: [place] [address] Medical Branch diclofenac 201[address] Yes Univers 75 mg EC 3-28 ity of tablet 00:00: [place] [facility] diclofenac 201[address] Yes Univers 75 mg EC 3-28 ity of tablet 00:00: [place] [facility] diclofenac 20170 Yes Univers 75 mg EC 3-28 ity of tablet 00:00: [place] [facility] metoprolol 201[address] Yes Univers tartrate 50 3-27 ity of mg tablet 00:00: [place] [facility] metoprolol 201[address] Yes Univers tartrate 50 3-27 ity of mg tablet 00:00: [place] [facility] metoprolol 2017-0 Yes Univers tartrate 50 3-27 ity of mg tablet 00:00: [place] [facility] metoprolol 2017-0 Yes Univers tartrate 50 3-27 ity of mg tablet 00:00: [place] [facility] metoprolol 20170 Yes Univers tartrate 50 3-27 ity of mg tablet 00:00: [place] [facility] Branch metoprolol 2017-0 Yes Univers tartrate 50 3-27 ity of mg tablet 00:00: [place] [facility] DOK 100 mg 2017-0 Yes Univers capsule 3-13 ity of 00:00: [place] [address] Medical Branch polyethylen 201[address] Yes Univer s e glycol 17 3-13 ity of gram/dose 00:00: [place] [address] Medical Branch valACYclovi 0 Yes Univer s r 500 mg 3-13 ity of tablet 00:00: [place] 00 Medical Branch DOK 100 mg 2017-0 Yes Univers capsule 3-13 ity of 00:00: Medical Branch polyethylen 201[address] Yes Univer s e glycol 17 3-13 ity of gram/dose 00:00: [place] powder Medical Branch valACYclovi 20170 Yes Univer s r 500 mg 3-13 ity of tablet 00:00: Medical Branch DOK 100 mg 2017-0 Yes Univers capsule 3-13 ity of 00:00: Medical Branch polyethylen 201[address] Yes Univer s e glycol 17 3-13 ity of gram/dose 00:00: [place] powder Medical Branch valACYclovi 20170 Yes Univer s r 500 mg 3-13 ity of tablet 00:00: Medical Branch DOK 100 mg 20170 Yes Univers capsule 3-13 ity of 00:00: Medical Branch polyethylen 20170 Yes Univer s e glycol 17 3-13 ity of gram/dose 00:00: [place] powder Medical Branch valACYclovi 20170 Yes Univer s r 500 mg 3-13 ity of tablet 00:00: Medical Branch DOK 100 mg 20170 Yes Univers capsule 3-13 ity of 00:00: Medical Branch polyethylen 20170 Yes Univer s e glycol 17 3-13 ity of gram/dose 00:00: [place] powder Medical Branch valACYclovi 20170 Yes Univer s r 500 mg 3-13 ity of tablet 00:00: Medical Branch DOK 100 mg 2017-0 Yes Univers capsule 3-13 ity of 00:00: Medical Branch polyethylen 20170 Yes Univer s e glycol 17 3-13 ity of gram/dose 00:00: [place] powder Medical Branch valACYclovi 20170 Yes Univer s r 500 mg 3-13 ity of tablet 00:00: Medical Branch omeprazole 2017-0 Yes Univers 40 mg 3-12 ity of capsule 00:00: Medical Branch omeprazole 2017-0 Yes Univers 40 mg 3-12 ity of capsule 00:00: Medical Branch omeprazole 2017-0 Yes Univers 40 mg 3-12 ity of capsule 00:00: [address] omeprazole 2017-0 Yes Univers 40 mg 3-12 ity of capsule 00:00: [address] omeprazole 2017-0 Yes Univers 40 mg 3-12 ity of capsule 00:00: [address] omeprazole 2017-0 Yes Univers 40 mg 3-12 ity of capsule 00:00: [address] chlorproMAZ 2017-0 Yes Univer s INE 100 mg 3-07 ity of tablet 00:00: [address] chlorproMAZ 2017-0 Yes Univer s INE 100 mg 3-07 ity of tablet 00:00: [address] chlorproMAZ 2017-0 Yes Univer s INE 100 mg 3-07 ity of tablet 00:00: [address] chlorproMAZ 2017-0 Yes Univer s INE 100 mg 3-07 ity of tablet 00:00: [address] chlorproMAZ 2017-0 Yes Univer s INE 100 mg 3-07 ity of tablet 00:00: [address] chlorproMAZ 2017-0 Yes Univer s INE 100 mg 3-07 ity of tablet 00:00: [address] QUEtiapine 2017-0 Yes Univers 200 mg 2-24 ity of tablet 00:00: [address] QUEtiapine 2017-0 Yes Univers 200 mg 2-24 ity of tablet 00:00: [address] QUEtiapine 2017-0 Yes Univers 200 mg 2-24 ity of tablet 00:00: [address] QUEtiapine 2017-0 Yes Univers 200 mg 2-24 ity of tablet 00:00: [address] QUEtiapine 2017-0 Yes Univers 200 mg 2-24 ity of tablet 00:00: [address] QUEtiapine 2017-0 Yes Univers 200 mg 2-24 ity of tablet 00:00: [address] tiZANidine 2017-0 Yes Univers 4 mg tablet 2-18 ity of 00:00: [address] tiZANidine 2017-0 Yes Univers 4 mg tablet 2-18 ity of 00:00: [address] tiZANidine 2017-0 Yes Univers 4 mg tablet 2-18 ity of 00:00: [address] tiZANidine 2017-0 Yes Univers 4 mg tablet 2-18 ity of 00:00: [place] 00 Medical Branch tiZANidine 2017-0 Yes Univers 4 mg tablet 2-18 ity of 00:00: [place] [facility] tiZANidine 2017-0 Yes Univers 4 mg tablet 2-18 ity of 00:00: [place] [facility] OLANZapine 2017-0 Yes Univers 10 mg 2-10 ity of tablet 00:00: [place] [facility] OLANZapine 2017-0 Yes Univers 10 mg 2-10 ity of tablet 00:00: [place] [facility] OLANZapine 2017-0 Yes Univers 10 mg 2-10 ity of tablet 00:00: [place] [facility] OLANZapine 2017-0 Yes Univers 10 mg 2-10 ity of tablet 00:00: [place] [facility] OLANZapine 2017-0 Yes Univers 10 mg 2-10 ity of tablet 00:00: [place] [facility] OLANZapine 2017-0 Yes Univers 10 mg 2-10 ity of tablet 00:00: [place] [facility] acetaminoph 2017-0 Yes Univer s [...] ity of mcg/actuati 00:00: [place] on inhaler Medical Branch PROAIR HFA 2017-0 Yes Univers [...] 500 mg 1-23 ity of tablet 00:00: [place] [facility] naproxen 2017-0 Yes Univers 500 mg 1-23 ity of tablet 00:00: [place] [facility] naproxen 2017-0 Yes Univers 500 mg 1-23 ity of tablet 00:00: [place] [facility] naproxen 2017-0 Yes Univers 500 mg 1-23 ity of tablet 00:00: [place] 00 Medical Branch Nitrofurant 2017-0 Yes Univsondra s oin&Nit. 1-17 ity of Macrocryst 00:00: [place] 100 mg 00 Medical capsule Branch Nitrofurant 2017-0 Yes Univer s oin&Nit. 1-17 ity of Macrocryst 00:00: [place] 100 mg 00 Medical capsule Branch Nitrofurant 2017-0 Yes Univer s oin&Nit. 1-17 ity of Macrocryst 00:00: [place] 100 mg 00 Medical capsule Branch Nitrofurant 2017-0 Yes Univsondra s oin&Nit. 1-17 ity of Macrocryst 00:00: [place] 100 mg 00 Medical capsule Branch Nitrofurant 2017-0 Yes Univer s oin&Nit. 1-17 ity of Macrocryst 00:00: [place] 100 mg 00 Medical capsule Branch Nitrofurant 2017-0 Yes Univsondra s oin&Nit. 1-17 ity of Macrocryst 00:00: [place] 100 mg 00 Medical capsule Branch diphenhydrA 2017-0 Yes Univer s MINE 25 mg 1-11 ity of capsule 00:00: [place] 00 Medical Branch diphenhydrA 2017-0 Yes Univer s MINE 25 mg 1-11 ity of capsule 00:00: [place] 00 Medical Branch diphenhydrA 2017-0 Yes Univer s MINE 25 mg 1-11 ity of capsule 00:00: [place] [facility] diphenhydrA Yes Univer s MINE 25 mg 1-11 ity of capsule 00:00: [place] [facility] Branch diphenhydrA Yes Univer s MINE 25 mg 1-11 ity of capsule 00:00: [place] [facility] diphenhydrA Yes Univer s MINE 25 mg 1-11 ity of capsule 00:00: [place] [facility] Branch hydrOXYzine hydrOXYzine No 1{table BID hydrOXYzin HCl 25 MG HCl 25 MG t_as_ne e HCl 25 eded} MG Escitalopra Escitalopra No 1{table QD Escitalopr m Oxalate m Oxalate t} am Oxalate 20 MG 20 MG 20 MG Ipratropium Ipratropium No 2{spray TID Ipratropiu [place] s_in_ea m [place] 0.06 % 0.06 % ch_nost 0.06 % [...] eded} Ipratropium Ipratropium No 2{spray TID Ipratropiu [place] s_in_ea m [place] 0.06 % 0.06 % ch_nost 0.06 % [...] eded} Ipratropium Ipratropium No 2{spray TID Ipratropiu [place] s_in_ea m [place] 0.06 % 0.06 % ch_nost 0.06 % [...] MG Ipratropium Ipratropium No 2{spray TID Ipratropiu [place] s_in_ea m [place] 0.06 % 0.06 % ch_nost 0.06 % [...] MG Ipratropium Ipratropium No 2{spray TID Ipratropiu [place] s_in_ea m [place] 0.06 % 0.06 % ch_nost 0.06 % [...] MG Ipratropium Ipratropium No 2{spray TID Ipratropiu [place] s_in_ea m [place] 0.06 % 0.06 % ch_nost 0.06 % [...] MCG/DOSE MCG/DOSE Propranolol Propranolol No Propranolo HCl 40 MG HCl 40 MG l HCl 40 MG Escitalopra Escitalopra No 1{table QD Escitalopr m Oxalate m Oxalate t} am Oxalate 20 MG 20 MG 20 MG Montelukast Montelukast No Montelukas Sodium 10 Sodium 10 t Sodium MG MG 10 MG Tylenol # 3 Tylenol # 3 No 1{table BID Tylenol # 300/30mg 300/30mg t_as_ne 3 300/30mg eded} Advair Advair No 1{puff} BID Advair Diskus Diskus Diskus 250-50 250-50 250-50 MCG/DOSE MCG/DOSE MCG/DOSE Albuterol Albuterol No 2{puffs Albuterol Sulfate HFA Sulfate HFA } Sulfate 108 (90 108 (90 HFA 108 Base) Base) (90 Base) MCG/ACT MCG/ACT MCG/ACT tiZANidine tiZANidine No 1{table BID tiZANidine HCl 4 MG HCl 4 MG t_as_ne HCl 4 MG eded} Oxybutynin Oxybutynin No Oxybutynin Chloride ER Chloride ER Chloride 10 MG 10 MG ER 10 MG Ipratropium Ipratropium No 2{spray TID Ipratropiu [place] s_in_ea m [place] 0.06 % 0.06 % ch_nost 0.06 % ril} Diclofenac Diclofenac No TID Diclofenac Sodium 1 % Sodium 1 % Sodium 1 % Propranolol Propranolol No Propranolo HCl 80 MG HCl 80 MG l HCl 80 MG hydrOXYzine hydrOXYzine No 1{table BID hydrOXYzin HCl 25 MG HCl 25 MG t_as_ne e HCl 25 eded} MG Propranolol Propranolol No Propranolo HCl 40 MG HCl 40 MG l HCl 40 MG Escitalopra Escitalopra No 1{table QD Escitalopr m Oxalate m Oxalate t} am Oxalate 20 MG 20 MG 20 MG Montelukast Montelukast No Mont[place]as Sodium 10 Sodium 10 t Sodium MG MG 10 MG Tylenol # 3 Tylenol # 3 No 1{table BID Tylenol # 300/30mg 300/30mg t_as_ne 3 300/30mg eded} Advair Advair No 1{puff} BID Advair Diskus Diskus Diskus 250-50 250-50 250-50 MCG/DOSE MCG/DOSE MCG/DOSE Albuterol Albuterol No 2{puffs Albuterol Sulfate HFA Sulfate HFA } Sulfate 108 (90 108 (90 HFA 108 Base) Base) (90 Base) MCG/ACT MCG/ACT MCG/ACT tiZANidine tiZANidine No 1{table BID tiZANidine HCl 4 MG HCl 4 MG t_as_ne HCl 4 MG eded} Oxybutynin Oxybutynin No Oxybutynin Chloride ER Chloride ER Chloride 10 MG 10 MG ER 10 MG Ipratropium Ipratropium No 2{spray TID Ipratropiu [place] s_in_ea m [place] 0.06 % 0.06 % ch_nost 0.06 % ril} Diclofenac Diclofenac No TID Diclofenac Sodium 1 % Sodium 1 % Sodium 1 % Propranolol Propranolol No Propranolo HCl 80 MG HCl 80 MG l HCl 80 MG hydrOXYzine hydrOXYzine No 1{table BID hydrOXYzin HCl 25 MG HCl 25 MG t_as_ne e HCl 25 eded} MG Propranolol Propranolol No Propranolo HCl 40 MG HCl 40 MG l HCl 40 MG Escitalopra Escitalopra No 1{table QD Escitalopr m Oxalate m Oxalate t} am Oxalate 20 MG 20 MG 20 MG Montelukast Montelukast No Montelukas Sodium 10 Sodium 10 t Sodium MG MG 10 MG Tylenol # 3 Tylenol # 3 No 1{table BID Tylenol # 300/30mg 300/30mg t_as_ne 3 300/30mg eded} Advair Advair No 1{puff} BID Advair Diskus Diskus Diskus 250-50 250-50 250-50 MCG/DOSE MCG/DOSE MCG/DOSE Albuterol Albuterol No 2{puffs Albuterol Sulfate HFA Sulfate HFA } Sulfate 108 (90 108 (90 HFA 108 Base) Base) (90 Base) MCG/ACT MCG/ACT MCG/ACT tiZANidine tiZANidine No 1{table BID tiZANidine HCl 4 MG HCl 4 MG t_as_ne HCl 4 MG eded} Oxybutynin Oxybutynin No Oxybutynin Chloride ER Chloride ER Chloride 10 MG 10 MG ER 10 MG Ipratropium Ipratropium No 2{spray TID Ipratropiu [place] s_in_ea m [place] 0.06 % 0.06 % ch_nost 0.06 % ril} Diclofenac Diclofenac No TID Diclofenac Sodium 1 % Sodium 1 % Sodium 1 % Propranolol Propranolol No Propranolo HCl 80 MG HCl 80 MG l HCl 80 MG hydrOXYzine hydrOXYzine No 1{table BID hydrOXYzin HCl 25 MG HCl 25 MG t_as_ne e HCl 25 eded} MG Propranolol Propranolol No Propranolo HCl 40 MG HCl 40 MG l HCl 40 MG Escitalopra Escitalopra No 1{table QD Escitalopr m Oxalate m Oxalate t} am Oxalate 20 MG 20 MG 20 MG acetaminoph acetaminoph No acetaminop [place] en 300 en 300 hen 300 da mg-codeine mg-codeine mg-codeine [facility] 30 mg 30 mg 30 mg al tablet TAKE tablet TAKE tablet Health 1 TABLET BY 1 TABLET BY TAKE 1 Outreac MOUTH TWICE MOUTH TWICE TABLET BY h DAILY FOR DAILY FOR MOUTH Prog erin 14 DAYS 14 DAYS TWICE DAILY FOR 14 DAYS Montelukast Montelukast No Montelukas Sodium 10 Sodium 10 t Sodium MG MG 10 MG Tylenol # 3 Tylenol # 3 No 1{table BID Tylenol # 300/30mg 300/30mg t_as_ne 3 300/30mg eded} albuterol albuterol No albuterol [place] sulfate HFA sulfate HFA sulfate da 90 90 HFA 90 [facility] mcg/actuati mcg/actuati mcg/actuat al on aerosol on aerosol ion Hea lth inhaler inhaler aerosol Outrea c INHALE 2 INHALE 2 inhaler h PUFFS BY PUFFS BY INHALE 2 Pro gram MOUTH EVERY MOUTH EVERY PUFFS BY 4 HOURS 4 HOURS MOUTH NEEDED NEEDED EVERY 4 HOURS NEEDED Advair Advair No 1{puff} BID Advair Diskus Diskus Diskus 250-50 250-50 250-50 MCG/DOSE MCG/DOSE MCG/DOSE aripiprazol aripiprazol No 1 Q1D aripiprazo [place] e 15 mg e 15 mg le 15 mg da tablet Take tablet Take tablet [facility] 1 tablet 1 tablet Take 1 al every day every day tablet Hea lth by oral by oral every day Outr eac route in route in by oral h the the route in Program morning. morning. the morning. Albuterol Albuterol No 2{puffs Albuterol Sulfate HFA Sulfate HFA } Sulfate 108 (90 108 (90 HFA 108 Base) Base) (90 Base) MCG/ACT MCG/ACT MCG/ACT atorvastati atorvastati No atorvastat [place] n 10 mg n 10 mg in 10 mg da tablet TAKE tablet TAKE tablet [facility] 1 TABLET BY 1 TABLET BY TAKE 1 al MOUTH EVERY MOUTH EVERY TABLET BY Health DAY DAY MOUTH Outreac EVERY DAY h Program tiZANidine tiZANidine No 1{table BID tiZANidine HCl 4 MG HCl 4 MG t_as_ne HCl 4 MG eded} Banophen 50 Banophen 50 No Banophen [place] mg capsule mg capsule 50 mg da TK 1 C PO TK 1 C PO capsule TK [facility] QHS QHS 1 C PO QHS al Health Outreac h Program Oxybutynin Oxybutynin No Oxybutynin Chloride ER Chloride ER Chloride 10 MG 10 MG ER 10 MG Ipratropium Ipratropium No 2{spray TID Ipratropiu [place] s_in_ea m [place] 0.06 % 0.06 % ch_nost 0.06 % ril} bupropion bupropion No 1 Q1D bupropion [place] [...] in the the the morning. morning. morning. Diclofenac Diclofenac No TID Diclofenac Sodium 1 % Sodium 1 % Sodium 1 % citalopram citalopram No citalopram [place] 40 mg 40 mg 40 mg da tablet TAKE tablet TAKE tablet [facility] 1 TABLET BY 1 TABLET BY TAKE 1 al MOUTH EVERY MOUTH EVERY TABLET BY Health MORNING MORNING MOUTH Outreac EVERY h MORNING Program Propranolol Propranolol No Propranolo HCl 80 MG HCl 80 MG l HCl 80 MG clindamycin clindamycin No clindamyci [place] HCl 150 mg HCl 150 mg n HCl 150 da capsule TK capsule TK mg capsule [facility] 1 C PO QID 1 C PO QID TK 1 C PO al FOR FOR QID FOR Health INFECTION INFECTION INFECTION Outreac h Program hydrOXYzine hydrOXYzine No 1{table BID hydrOXYzin HCl 25 MG HCl 25 MG t_as_ne e HCl 25 eded} MG clonazepam clonazepam No clonazepam [place] 0.5 mg 0.5 mg 0.5 mg da tablet TK 1 tablet TK 1 tablet TK [facility] T PO BID T PO BID 1 T PO BID a l Health Outreac h Program Oxybutynin Oxybutynin No Oxybutynin Chloride ER Chloride ER Chloride 10 MG 10 MG ER 10 MG clotrimazol clotrimazol No clotrimazo [place] 1 % e 1 % le 1 % da topical topical topical [facility] cream JASON cream JASON cream JASON al AA BID AA BID AA BID Health Outreac h Program Montelukast Montelukast No Montelukas Sodium 10 Sodium 10 t Sodium MG MG 10 MG ergocalcife ergocalcife No ergocalcif [place] rol rol cj da (vitamin (vitamin (vitamin Epi scop D2) 1,250 D2) 1,250 D2) 1,250 al mcg (50,000 mcg (50,000 mcg H ealth unit) unit) (50,000 Outreac capsule capsule unit) h TAKE 1 TAKE 1 capsule Program CAPSULE BY CAPSULE BY TAKE 1 MOUTH 1 MOUTH 1 CAPSULE BY TIME WEEKLY TIME WEEKLY MOUTH 1 TIME WEEKLY Ipratropium Ipratropium No 2{spray TID Ipratropiu [place] s_in_ea m [place] 0.06 % 0.06 % ch_nost 0.06 % ril} Propranolol Propranolol No 1{table BID Propranolo HCl 80 MG HCl 80 MG t} l HCl 80 MG estradiol 1 estradiol 1 No estradiol [place] mg tablet mg tablet 1 mg da TAKE 1 TAKE 1 tablet [facility] TABLET BY TABLET BY TAKE 1 al MOUTH EVERY MOUTH EVERY TABLET BY Health DAY DAY MOUTH Outreac EVERY DAY h Program tiZANidine tiZANidine No 1{table BID tiZANidine HCl 4 MG HCl 4 MG t_as_ne HCl 4 MG eded} fluticasone fluticasone No fluticason [place] propionate propionate [...] DAILY DAILY SPRAY IN EACH NOSTRIL DAILY hydrOXYzine hydrOXYzine No 1{table BID hydrOXYzin HCl 25 MG HCl 25 MG t_as_ne e HCl 25 eded} MG gemfibrozil gemfibrozil No gemfibrozi [place] 600 mg 600 mg l 600 mg da tablet TAKE tablet TAKE tablet [facility] 1 TABLET BY 1 TABLET BY TAKE 1 al MOUTH TWICE MOUTH TWICE TABLET BY Health DAILY DAILY MOUTH Outreac TWICE h DAILY Program Tylenol # 3 Tylenol # 3 No 1{table BID Tylenol # 300/30mg 300/30mg t_as_ne 3 300/30mg eded} hydroxyzine hydroxyzine No hydroxyzin [place] HCl 50 mg HCl 50 mg e HCl 50 d a tablet TAKE tablet TAKE mg tablet [facility] 1 TABLETS 1 TABLETS TAKE 1 al BY MOUTH BY MOUTH TABLETS BY H ealth TWICE DAILY TWICE DAILY MOUTH Outreac NEEDED NEEDED TWICE h DAILY Program NEEDED Albuterol Albuterol No 2{puffs Albuterol Sulfate HFA Sulfate HFA } Sulfate 108 (90 108 (90 HFA 108 Base) Base) (90 Base) MCG/ACT MCG/ACT MCG/ACT hydroxyzine hydroxyzine No hydroxyzin [place] pamoate 25 pamoate 25 e pamoate da mg capsule mg capsule 25 mg Ep [facility] TK 1 C PO TK 1 C PO capsule TK al QD PRA QD PRA 1 C PO QD Health PRA Outreac h Program Diclofenac Diclofenac No TID Diclofenac Sodium 1 % Sodium 1 % Sodium 1 % nystatin nystatin No nystatin [place] 100,000 100,000 100,000 da unit/mL unit/mL unit/mL [facility] p oral oral oral al suspension suspension suspension Health TK 4 ML PO TK 4 ML PO TK 4 ML PO Outreac QID FOR 7 QID FOR 7 QID FOR 7 h DAYS DAYS DAYS Program Advair Advair No 1{puff} BID Advair Diskus Diskus Diskus 250-50 250-50 250-50 MCG/DOSE MCG/DOSE MCG/DOSE ondansetron ondansetron No ondansetro [place] HCl 4 mg HCl 4 mg n HCl 4 mg d a tablet TK 1 tablet TK 1 tablet TK [facility] T PO Q 6 H T PO Q 6 H 1 T PO Q 6 al PRF NAUSEA PRF NAUSEA H PRF He alth OR VOM OR VOM NAUSEA OR Outrea c VOM h Program Escitalopra Escitalopra No 1{table QD Escitalopr m Oxalate m Oxalate t} am Oxalate 20 MG 20 MG 20 MG oxcarbazepi oxcarbazepi No oxcarbazep [place] ne 150 mg ne 150 mg ine 150 mg da tablet TK 1 tablet TK 1 tablet TK [facility] T PO BID T PO BID 1 T PO BID a l Health Outreac h Program Escitalopra Escitalopra No 1{table QD Escitalopr m Oxalate m Oxalate t} am Oxalate 20 MG 20 MG 20 MG pantoprazol pantoprazol No pantoprazo [place] e 40 mg e 40 mg le 40 mg da tablet,alfredito tablet,alfredito tablet,del [facility] yed release yed release ayed a l TK 1 T PO TK 1 T PO release TK Health QD QD 1 T PO QD Outreac h Program hydrOXYzine hydrOXYzine No 1{table BID hydrOXYzin HCl 25 MG HCl 25 MG t_as_ne e HCl 25 eded} MG polyethylen polyethylen No polyethyle [place] e glycol [...] PRN UTD TK PO BID PRN UTD Propranolol Propranolol No 1{table BID Propranolo HCl 40 MG HCl 40 MG t_on_an l HCl 40 _empty_ MG stomach } tiZANidine tiZANidine No 1{table BID tiZANidine HCl 4 MG HCl 4 MG t_as_ne HCl 4 MG eded} propranolol propranolol No propranolo [place] 80 mg 80 mg l 80 mg da tablet TAKE tablet TAKE tablet [facility] 1 TABLET BY 1 TABLET BY TAKE 1 al MOUTH TWICE MOUTH TWICE TABLET BY Health DAILY DAILY MOUTH Outreac TWICE h DAILY Program Tylenol # 3 Tylenol # 3 No 1{table BID Tylenol # 300/30mg 300/30mg t_as_ne 3 300/30mg eded} quetiapine quetiapine No quetiapine [place] 100 mg 100 mg 100 mg da tablet TK 1 tablet TK 1 tablet TK [facility] T PO ONCE D T PO ONCE D 1 T PO al ONCE D Health Outreac h Program tiZANidine tiZANidine No 1{table BID tiZANidine HCl 4 MG HCl 4 MG t_as_ne HCl 4 MG eded} quetiapine quetiapine No quetiapine [place] 200 mg 200 mg 200 mg da tablet TK 1 tablet TK 1 tablet TK [facility] T PO QHS T PO QHS 1 T PO QHS a l Health Outreac h Program Escitalopra Escitalopra No 1{table QD Escitalopr m Oxalate m Oxalate t} am Oxalate 20 MG 20 MG 20 MG quetiapine quetiapine No quetiapine [place] 300 mg 300 mg 300 mg da tablet TK 1 tablet TK 1 tablet TK [facility] T PO HS T PO HS 1 T PO HS al Health Outreac h Program Propranolol Propranolol No 1{table BID Propranolo HCl 40 MG HCl 40 MG t_on_an l HCl 40 _empty_ MG stomach } sucralfate sucralfate No sucralfate [place] 1 gram 1 gram 1 gram da tablet TK 1 tablet TK 1 tablet TK [facility] T PO QID T PO QID 1 T PO QID a l Health Outreac h Program Tylenol # 3 Tylenol # 3 No 1{table BID Tylenol # 300/30mg 300/30mg t_as_ne 3 300/30mg eded} tizanidine tizanidine No tizanidine [place] 4 mg tablet 4 mg tablet 4 mg d a TK 1 T PO TK 1 T PO tablet TK [facility] BID BID 1 T PO BID al Health Outreac h Program hydrOXYzine hydrOXYzine No 1{table BID hydrOXYzin HCl 25 MG HCl 25 MG t_as_ne e HCl 25 eded} MG tramadol 50 tramadol 50 No tramadol [place] mg tablet mg tablet 50 mg da TK ONE T PO TK ONE T PO tablet TK [facility] Q 6 H PRN P Q 6 H PRN P ONE T PO Q al 6 H PRN P Health Outreac h Program Tylenol # 3 Tylenol # 3 No 1{table BID Tylenol # 300/30mg 300/30mg t_as_ne 3 300/30mg eded} Ipratropium Ipratropium No 2{spray TID Ipratropiu [place] s_in_ea m [place] 0.06 % 0.06 % ch_nost 0.06 % ril} valacyclovi valacyclovi No valacyclov [place] r 500 mg r 500 mg ir 500 mg da tablet TAKE tablet TAKE tablet [facility] 1 TABLET BY 1 TABLET BY TAKE 1 al MOUTH EVERY MOUTH EVERY TABLET BY Health DAY DAY MOUTH Outreac EVERY DAY h Program hydrOXYzine hydrOXYzine No 1{table BID hydrOXYzin HCl [...] MG Ipratropium Ipratropium No 2{spray TID Ipratropiu [place] s_in_ea m [place] 0.06 % 0.06 % ch_nost 0.06 % [...] Source Name Name influenza, influenza, 2016-01-03 Completed [place] injectable, injectable, 00:00:00 [facility] p quadrivalent quadrivalent pneumococcal pneumococcal 2015-11-22 Completed [place] polysaccharide PPV23 polysaccharide PPV23 00:00:00 Medical Group Vital Signs Vital Name Observation Time Observation Value Comments Source height 2021-08-07 15:20:00 63 [in_i] [facility] weight 2021-08-07 15:20:00 216 [lb_av] [facility] temperature 2021-08-07 15:20:00 97.3 [degF] [facility] bmi 2021-08-07 15:20:00 38.26 kg/m2 [facility] oximetry 2021-08-07 15:20:00 95 % [facility] respiratory rate 2021-08-07 15:20:00 16 /min [facility] blood pressure 2021-08-07 15:20:00 130 mm[Hg] [facility] blood pressure 2021-08-07 15:20:00 82 mm[Hg] [facility] - diastolic [facility] BP Diastolic 2021-04-14 00:00:00 80 mm[Hg] [facility] Height 2021-04-14 00:00:00 63 [in_i] [facility] BMI (Body Mass 2021-04-14 00:00:00 37.8 kg/m2 [facility]) Group BP Systolic 2021-04-14 00:00:00 121 mm[Hg] [facility] Body Weight 2021-04-14 00:00:00 3411 [oz_av] [facility] BP Diastolic 2021-03-13 00:00:00 78 mm[Hg] [facility] Height 2021-03-13 00:00:00 63 [in_i] [facility] BMI (Body Mass 2021-03-13 00:00:00 38.1 kg/m2 [facility] Index) Group BP Systolic 2021-03-13 00:00:00 116 mm[Hg] [facility] Body Weight 2021-03-13 00:00:00 214.9 [lb_av] [facility] BP Diastolic 2021-02-16 00:00:00 70 mm[Hg] [facility] Height 2021-02-16 00:00:00 63 [in_i] [facility] BMI (Body Mass 2021-02-16 00:00:00 38.1 kg/m2 [facility]) Group BP Systolic 2021-02-16 00:00:00 132 mm[Hg] [facility] Body Weight 2021-02-16 00:00:00 215 [lb_av] [facility] BP Diastolic 2020-11-23 00:00:00 75 mm[Hg] [facility] Height 2020-11-23 00:00:00 63 [in_i] [facility] BMI (Body Mass 2020-11-23 00:00:00 38.3 kg/m2 [facility]) Group BP Systolic 2020-11-23 00:00:00 117 mm[Hg] [facility] Body Weight 2020-11-23 00:00:00 216.2 [lb_av] [facility] BP Diastolic 2020-06-30 00:00:00 76 mm[Hg] [facility] Height 2020-06-30 00:00:00 63 [in_i] [facility] BMI (Body Mass 2020-06-30 00:00:00 35.8 kg/m2 [facility]) Group BP Systolic 2020-06-30 00:00:00 126 mm[Hg] [facility] Body Weight 2020-06-30 00:00:00 202 [lb_av] [facility] BP Diastolic 2020-06-16 00:00:00 78 mm[Hg] [facility] Height 2020-06-16 00:00:00 63 [in_i] [facility] BMI (Body Mass 2020-06-16 00:00:00 35.8 kg/m2 [facility]) Group BP Systolic 2020-06-16 00:00:00 130 mm[Hg] [facility] Body Weight 2020-06-16 00:00:00 202 [lb_av] [facility] BP Diastolic 2020-04-26 00:00:00 89 mm[Hg] [facility] Height 2020-04-26 00:00:00 63 [in_i] [facility] BMI (Body Mass 2020-04-26 00:00:00 35.9 kg/m2 [facility]) Group BP Systolic 2020-04-26 00:00:00 135 mm[Hg] [facility] Body Weight 2020-04-26 00:00:00 3244.8 [oz_av] [facility] BP Diastolic 2020-03-08 00:00:00 68 mm[Hg] [facility] Height 2020-03-08 00:00:00 63 [in_i] [facility] BMI (Body Mass 2020-03-08 00:00:00 36.8 kg/m2 [facility]) Group BP Systolic 2020-03-08 00:00:00 132 mm[Hg] [facility] Body Weight 2020-03-08 00:00:00 207.6 [lb_av] [facility] BP Diastolic 2020-01-21 00:00:00 62 mm[Hg] [facility] Height 2020-01-21 00:00:00 63 [in_i] [facility] BMI (Body Mass 2020-01-21 00:00:00 38.5 kg/m2 [facility]) Group BP Systolic 2020-01-21 00:00:00 128 mm[Hg] [facility] Body Weight 2020-01-21 00:00:00 217.2 [lb_av] [facility] BP Diastolic 2019-12-31 00:00:00 75 mm[Hg] [facility] Height 2019-12-31 00:00:00 63 [in_i] [facility] BMI (Body Mass 2019-12-31 00:00:00 38.3 kg/m2 [facility] Group BP Systolic 2019-12-31 00:00:00 125 mm[Hg] [facility] Body Weight 2019-12-31 00:00:00 216 [lb_av] [facility] BP Diastolic 2019-11-17 00:00:00 77 mm[Hg] [facility] Height 2019-11-17 00:00:00 63 [in_i] [facility] BMI (Body Mass 2019-11-17 00:00:00 38.3 kg/m2 [facility]) Group BP Systolic 2019-11-17 00:00:00 129 mm[Hg] [facility] Body Weight 2019-11-17 00:00:00 216 [lb_av] [facility] BP Diastolic 2019-11-03 00:00:00 78 mm[Hg] [facility] Height 2019-11-03 00:00:00 63 [in_i] [facility] BMI (Body Mass 2019-11-03 00:00:00 37.9 kg/m2 [facility] Group BP Systolic 2019-11-03 00:00:00 121 mm[Hg] [facility] Body Weight 2019-11-03 00:00:00 214 [lb_av] [facility] BP Diastolic 2019-05-12 00:00:00 84 mm[Hg] [facility] Height 2019-05-12 00:00:00 63 [in_i] [facility] BMI (Body Mass 2019-05-12 00:00:00 36 kg/m2 [facility]) Group BP Systolic 2019-05-12 00:00:00 126 mm[Hg] [facility] Body Weight 2019-05-12 00:00:00 203 [lb_av] [facility] BP Diastolic 2019-05-05 00:00:00 87 mm[Hg] [facility] Height 2019-05-05 00:00:00 63 [in_i] [facility] BMI (Body Mass 2019-05-05 00:00:00 36 kg/m2 [facility]) Group BP Systolic 2019-05-05 00:00:00 130 mm[Hg] [facility] Body Weight 2019-05-05 00:00:00 3248 [oz_av] [facility] Procedures Procedure Date / Time Performing Source Performed Clinician REFERRAL- REQUEST/RESPONSE 2022-02-27 Doctor Unive rsity of 06:01:00 Unassigned, No [place] [facility] REFERRAL- REQUEST/RESPONSE 2021-11-21 Doctor Unive rsity of 05:01:00 Unassigned, No [place] [facility] unlisted imaging order 2021-03-13 [facility] 00:00:00 Group REFERRAL- REQUEST/RESPONSE 2020-08-16 Doctor Unive rsity of 05:01:00 Unassigned, No [place] [facility] Branch MAMMO, screening, digital, 2020-04-26 [facility] bilateral 00:00:00 Group Upper GI Endoscopy 2019-11-27 [facility] 00:00:00 Group Cholecystectomy 2015-03-04 [facility] 00:00:00 Group Colonoscopy 2009-03-04 [facility] 00:[facility]:00 Group Procedure on Lower Leg [facility] Hyste[facility] Orthopedic Surgery [facility] Esophagogastroduodenoscopy (Surg) [facility] Plan of Care Planned Activity Planned Date Details Comments Source Instructions [facility] Outreach Program Encounters Start End Encounter Admission Attending Care Care Encounter Source Date/Time Date/Time Type Type Clinicians Facility Department ID 2022-04-11 Outpatient Gricelda, STSTEVEN STLMLC [id number] Common 10:39:01 Che [id number] [facility] 2022-02-01 Outpatient Yves, Na STLMLC STLMLC [id number] 2 Common 07:34:01 [facility] 2021-12-11 Outpatient Marinelli, Na STLMLC STLMLC [id number] 2 Common 08:05:02 [facility] 2021-10-27 Outpatient Marinelli, Na STLMLC STLMLC [id number] 2 Common 09:51:02 [facility] 2021-09-06 Outpatient Marinelli, Na STBENJAMÍNLC STLMLC [id number] 2 Common 11:56:02 [id number] [facility] 2021-08-07 Outpatient Marinelli, Na STLMLC STLMLC [id number] 2 Common 14:59:04 [facility] 2022-05-07 2022-05-07 Outpatient Astrid [facility] [id number] Univers 15:00:00 15:00:00 KARY faulkner [facility] 2022-04-25 2022-04-25 Outpatient SFA SFA [id number] Kwesi 15:18:45 15:18:45 [id number] F Pierre 2022-04-05 2022-04-05 (TEL) STLMLC STLMLC [id number] Co mmon 00:00:00 00:00:00 [facility] 2022-03-12 2022-03-12 (TEL) STLMLC STLMLC [id number] Co mmon 00:00:00 00:00:00 [facility] 2022-02-28 2022-02-28 (TEL) STLMLC STLMLC [id number] Co mmon 00:00:00 00:00:00 [facility] 2022-02-27 2022-02-27 Javed CURTIS [id number] Univers 00:00:00 00:00:00 Only Unassigned, CARLA [id number] [facility] [id number] Reggie as [phone] [address] 2022-02-12 2022-02-12 Outpatient JÚNIOR ALBERT [facility] [id number] Univers 13:40:00 13:40:00 JÚNIOR DANIELS [facility] 2022-02-12 2022-02-12 Telephone Jeremiah, [facility] [id number] Univers 00:00:00 00:00:00 [facility] [id number] ity [facility] [id number] Reggie as MIGUE?BLEA [phone] [address] MEDICAL OFFICE BUILDING 2022-02-08 2022-02-08 (TEL) STLMLC STLMLC [id number] Co mmon 00:00:00 00:00:00 [facility] 2022-02-01 2022-02-01 OFFICE STLMLC STLMLC [id number] Co mmon 00:00:00 00:00:00 VISIT EST Spir it PT LEVEL 3 [facility] 2022-01-24 2022-01-24 (TEL) STLMLC STLMLC [id number] Co mmon 00:00:00 00:00:00 [facility] 2022-01-19 2022-01-19 Outpatient JÚNIOR ALBERT [facility] [id number] Univers 13:40:00 13:40:00 JÚNIOR DANIELS [facility] 2022-01-15 2022-01-15 (TEL) STLC STLMLC [id number] Co mmon 00:00:00 00:00:00 [facility] 2022-01-01 2022-01-01 Outpatient JÚNIOR ALBERT [facility] [id number] Univers 13:40:00 13:40:00 JÚNIOR DANIELS [facility] 2021-12-08 2021-12-08 Outpatient JÚNIOR ALBERT [facility] [id number] Univers 13:40:00 13:40:00 JÚNIOR DANIELS ity of [facility] 2021-11-21 2021-11-21 Orders Doctor KIRSTEN [id number] Univers 00:00:00 00:00:00 Only Unassigned, CARLA [id number] [facility] [id number] [facility] [phone] [facility] 009 Branch 2021-10-31 2021-10-31 OFFICE STLMLC STLMLC [id number] Co mmon 00:00:00 00:00:00 VISIT EST Spir it PT LEVEL 3 [facility] 2021-10-10 2021-10-10 (TEL) STLMLC STLMLC [id number] Co mmon 00:00:00 00:00:00 [facility] 2021-10-05 2021-10-05 (TEL) STLMLC STLMLC [id number] Co mmon 00:00:00 00:00:00 [facility] 2021-09-08 2021-09-08 (TEL) STLMLC STLMLC [id number] Co mmon 00:00:00 00:00:00 [facility] 2021-09-06 2021-09-06 (TEL) STLMLC STLMLC [id number] Co mmon 00:00:00 00:00:00 [facility] 2021-09-06 2021-09-06 OFFICE STLMLC STLMLC [id number] Co mmon 00:00:00 00:00:00 VISIT EST Spir it PT LEVEL 3 [facility] 2021-08-21 2021-08-21 Ancillary Audiology, [facility] [id number] [facility] 14:30:00 15:15:00 Visit Sol Hayes [facility] [id number] ity [facility] [id number] [facility] [phone] [facility] PRIMARY & [address] Branch SPECIALTY CARE 2021-08-21 2021-08-21 Outpatient [facility] [id number] Univers 14:30:00 14:30:00 SOL ity [facility] 2021-08-17 2021-08-17 (TEL) STLMLC STLMLC [id number] Co mmon 00:00:00 00:00:00 [facility] 2021-08-07 2021-08-07 OFFICE STLMLC STLMLC [id number] Co mmon 00:00:00 00:00:00 VISIT [facility] it PT LEVEL 4 - [facility] 2021-05-30 2021-05-30 Outpatient FERGUSON_JO MEHOP MEHOP 909 [place] 02:29:00 02:29:00 HN [id number] [facility] 2021-05-28 2021-05-28 Outpatient FERGUSON_JO MEHOP MEHOP 909 [place] 01:52:00 01:52:00 HN 0327 [facility] 2021-05-03 2021-05-03 Outpatient Wong_H VFP VFP [id number] [facility] 06:42:00 06:42:00 [id number] [facility] 2021-04-18 2021-04-18 Outpatient FERGUSON_JO MEHOP MEHOP 909 [place] 04:11:00 04:11:00 HN [id number] [facility] 2021-04-14 2021-04-14 [place]patient IHDE_[place] [id number] [place] 03:02:00 03:02:00 0211 [facility] 2021-04-14 2021-04-14 Outpatient IHDE_G MMG MMG [id number] [place] 03:02:00 03:02:00 0212 [facility] 2021-04-14 2021-04-14 Zaida CHO [place] - [id number] [place] 00:00:00 00:00:00 Discovery jon Donohue MAGNETIC LOCATER-C: [facility] [address], [place] [address] , Ph. 2021-04-132021-04-13 Outpatient IHDE_G MMG [facility] [id number] [place] 01:22:00 01:22:00 0210 Medical Group 2021-04-11 2021-04-11 Dave Osborne [facility] [id number] Univers 00:00:00 00:00:00 (Out) SPECIALTY [id number] ity of [facility] [id number] [facility] AT [phone] Ma sandra BELLE PLAINEGlen 2 [facility] 2021-04-02 2021-04-02 Outpatient FERANDRE_RACHAEL MCDOWELL MEHOP 909 [place] 12:26:00 12:26:00 HN [id number] [facility] 2021-03-31 2021-03-31 Outpatient DAVE DELATORRE [facility] [id number] Univers 14:00:00 14:00:00 ity [facility] 2021-03-13 2021-03-13 Outpatient IHDE_G MMG [facility] [id number] 022 [place] 04:46:00 04:46:00 0110 Medical Group 2021-03-13 2021-03-13 Outpatient IHDE_G MMG [facility] [id number] [place] 04:46:00 04:46:00 0111 Medical Group 2021-03-13 2021-03-13 Kvng Guajardo [facility] [place] - [id number] [place] 00:00:00 00:00:00 : Seven Ortiz [facility] [address], [facility], Otolaryngol [facility] [address] , Ph. 2021-03-04 2021-03-04 Outpatient FERANDRE_RACHAEL MCDOWELL MAHOP 909 [place] 12:10:00 12:10:00 HN 0101 [facility] 2021-02-16 2021-02-16 Outpatient IHDE_G MMG [facility] [id number] [place] 05:27:00 05:27:00 1216 [facility] 2021-02-16 2021-02-16 Outpatient IHDE_G [facility] [id number] [place] 05:27:00 05:27:00 1218 [facility] 2021-02-16 2021-02-16 Jesus [facility] [place] - [id number] M atagor 00:00:00 00:00:00 Kenrick Zazueta MD: Medical Medica luci Amezcua [facility] General [address], [place] [address] , Ph. [phone] 2021-02-03 2021-02-03 Outpatient Astrid GRANT, [facility] [id number] Univers 11:15:00 11:15:00 KARY [facility] 2021-01-13 2021-01-13 Outpatient DAVE DELATORRE [facility] [id number] Univers 14:00:00 14:00:00 [facility] 2020-12-13 2020-12-13 Outpatient FERKRUPA MCDOWELL MADAXA 909 [place] 02:48:00 02:48:00 HN 1012 [facility] 2020-11-23 2020-11-23 Outpatient A_Byrd [facility] [id number] [place] 03:10:00 03:10:00 0922 [facility] 2020-11-23 2020-11-23 Outpatient A_Byrd [facility] [id number] [place] 03:10:00 03:10:00 0923 [facility] 2020-11-23 2020-11-23 Kvng Guajardo [facility] [place] - [id number] [place] 00:00:00 00:00:00 : Seven Ortiz [facility] [address], [facility], Otolaryngol [facility] [address] , Ph. 2020-11-09 2020-11-09 Outpatient MAHAMED MCDOWELL MADAXA 909 [place] 10:47:00 10:47:00 HN 0908 [facility] 2020-10-17 2020-10-17 Outpatient Astrid GRANT [facility] [id number] Univers 15:00:00 15:00:00 KARY faulkner [facility] 2020-10-04 2020-10-04 Outpatient FERGUSON_JO MEHOP MAHOP 909 [place] 03:00:00 03:00:00 HN 0803 [facility] 2020-09-01 2020-09-01 Outpatient FERGUSON_JO MEHOP MAHOP 909 [place] 02:07:00 02:07:00 HN 0701 [facility] 2020-08-31 2020-08-31 Outpatient FERGUSON_JO MEHOP MAHOP 909 [place] 12:16:00 12:16:00 HN 0630 [facility] 2020-08-23 2020-08-23 [place] [id number] [place] 09:51:00 09:51:00 0622 [facility] 2020-08-23 2020-08-23 [place] [id number] 021 [place] 09:51:00 09:51:00 0907 [facility] 2020-08-16 2020-08-16 Orders Doctor KIRSTEN [id number] [facility] 00:00:00 00:00:00 Only Unassigned, CARLA [id number] [facility] [place] [facility] [id number] Reggie as [phone] [address] 2020-08-09 2020-08-09 [place] [id number] [place] 12:08:00 12:08:00 0608 [facility] 2020-07-21 2020-07-21 Outpatient FERGUSON_JO MEHOP [facility] 909 [place] 03:00:00 03:00:00 HN 0520 [facility] 2020-07-06 2020-07-06 [place] [id number] [place] 11:18:00 11:18:00 0505 [facility] 2020-06-30 2020-06-30 Outpatient FERGUSON_JO MEHOP MEHOP 909 [place] 03:59:00 03:59:00 HN 0429 [facility] 2020-06-30 2020-06-30 Outpatient IHDE_G MMG MMG [id number] 021 [place] 03:15:00 03:15:00 0429 [facility] 2020-06-30 2020-06-30 Outpatient IHDE_G MMG MMG [id number] [place] 03:15:00 03:15:00 0501 [facility] 2020-06-30 2020-06-30 Jesus CHO [place] - [id number] M [place] 00:00:00 00:00:00 Kenrick Zazueta MD: [facility] [address] [address], [place] [address] , Ph. [phone] 2020-06-23 2020-06-23 Outpatient FERGUSON_JO MEHOP MAHOP 909 [place] 02:11:00 02:11:00 HN 0422 [facility] 2020-06-17 2020-06-17 Outpatient FERGUSON_JO MEHOP MEHOP 909 [place] 06:56:00 06:56:00 HN 0416 [facility] 2020-06-16 2020-06-16 Outpatient IHDE_G MMG MMG [id number] 021 [place] 02:42:00 02:42:00 0415 [facility] 2020-06-16 2020-06-16 Outpatient IHDE_G MMG MMG [id number] 021 [place] 02:42:00 02:42:00 0416 [facility] 2020-06-16 2020-06-16 Outpatient IHDE_G MMG MMG [id number] 021 [place] 02:42:00 02:42:00 0426 [facility] 2020-06-16 2020-06-16 Jesus [facility] [place] - [id number] [place] 00:00:00 00:00:00 Kenrick Zazueta MD: Medical Medica [address], [place] [address] , Ph. [phone] 2020-06-10 2020-06-10 Outpatient IHDE_G MMG [facility] [id number] 021 [place] 04:56:00 04:56:00 0409 Medical Group 2020-05-27 2020-05-27 Outpatient FERGUSON_JO MEHOP MEHOP 909 [place] 03:36:00 03:36:00 HN 0326 [facility] 2020-05-25 2020-05-25 Outpatient FERGUSON_JO MEHOP MEHOP 909 [place] 03:30:00 03:30:00 HN 0324 [facility] 2020-05-08 2020-05-08 Outpatient FERGUSON_JO MEHOP MEHOP 909 [place] 02:50:00 02:50:00 HN 0307 [facility] 2020-04-26 2020-04-26 [facility] [id number] 021 [place] 02:42:00 02:42:00 0223 [facility] 2020-04-26 2020-04-26 Kelly Becerril [facility] [place] - [id number] M [place] 00:00:00 00:00:00 MD Luis: [address] - [address], [facility] [address] , Ph. 2020-04-12 2020-04-12 Outpatient A_Byrd MMG [facility] [id number] 021 [place] 12:23:00 12:23:00 0209 Medical Group 2020-04-11 2020-04-11 Outpatient FERGUSON_JO MEHOP MEHOP 909 [place] 04:04:00 04:04:00 HN 0208 [facility] 2020-03-29 2020-03-29 Outpatient FERGUSON_JO MEHOP MEHOP 909 [place] 05:18:00 05:18:00 HN 0126 [facility] 2020-03-28 2020-03-28 Outpatient FERGUSON_RACHAEL MAHOP [facility] 909 [place] 05:42:00 05:42:00 HN 0125 [facility] 2020-03-28 2020-03-28 [facility] [place] [facility] [id number] [place] 00:00:00 00:00:00 Beverly Akins MD: [facility] [address] [facility] [place] [address] [facility] , Ph. [phone] 2020-03-24 Outpatient FERGUSON_RACHAEL [facility] 909 [place] 03:18:00 03:18:00 HN 0121 [facility] 2020-03-23 2020-03-23 Outpatient FERGUSON_RACHAEL [facility] 909 [place] 11:49:00 11:49:00 HN 0120 [facility] 2020-03-09 2020-03-09 Outpatient FERGUSON_JO MAHOP [facility] 909 [place] 03:43:00 03:43:00 HN 0106 [facility] 2020-03-08 2020-03-08 Outpatient IHDE_G MMG [facility] [id number] 021 [place] 03:24:00 03:24:00 0105 [facility] 2020-03-08 2020-03-08 Outpatient IHDE_G MMG MMG [id number] 021 [place] 03:24:00 03:24:00 0106 [facility] 2020-03-08 2020-03-08 Outpatient IHDE_[place] [id number] 021 [place] 03:24:00 03:24:00 0201 [facility] 2020-03-08 2020-03-08 Jesus [facility] [place] - [id number] M at[place] 00:00:00 00:00:00 Kenrick Zazueta MD: Medical Medica l [address] [facility] [address], [place] [address] , Ph. [phone] 2020-02-18 2020-02-18 Outpatient IHDE_G MMG MMG [id number] 020 [place] 03:55:00 03:55:00 1217 [facility] 2020-02-18 2020-02-18 Outpatient IHDE_G MMG MMG [id number] 020 [place] 03:55:00 03:55:00 1219 [facility] 2020-02-18 2020-02-18 Outpatient IHDE_G MMG MMG [id number] 020 [place] 03:55:00 03:55:00 1223 da Medical [...] Group 2020-01-21 2020-01-21 Outpatient IHDE_G MMG MMG [id number] 020 [place] 10:00:00 10:00:00 1119 [facility] 2020-01-21 2020-01-21 Jesus MMG [place] - [id number] M [place] 00:00:00 00:00:00 Kenrick Zazueta MD: Medical Medica l [address] [facility] [address], [place] [address] , Ph. [phone] 2020-01-20 2020-01-20 Outpatient IHDE_G MMG MMG [id number] 020 [place] 02:18:00 02:18:00 1118 [facility] 2020-01-05 2020-01-05 Outpatient IHDE_G MMG MMG [id number] 020 [place] 10:17:00 10:17:00 1103 [facility] 2019-12-31 2019-12-31 Outpatient FERGUSON_JO MEHOP MEHOP 909 [place] 04:35:00 04:35:00 HN 1029 [facility] 2019-12-31 2019-12-31 Outpatient IHDE_G MMG MMG [id number] 020 [place] 04:35:00 04:35:00 1029 [facility] 2019-12-31 2019-12-31 Outpatient IHDE_G MMG MMG [id number] 020 [place] 04:35:00 04:35:00 1031 [facility] 2019-12-31 2019-12-31 Jesus [facility] [place] - [id number] M at[place] 00:00:00 00:00:00 Kenrick Zazueta MD: Medical Medica l [address] [facility] [address], [place] [address] , Ph. [phone] 2019-12-30 2019-12-30 Outpatient IHDE_G MMG MMG [id number] 020 [place] 06:15:00 06:15:00 1028 [facility] 2019-12-25 2019-12-25 Outpatient IHDE_G MMG MMG [id number] 020 [place] 10:29:00 10:29:00 1023 [facility] 2019-12-15 2019-12-15 Outpatient A_Byrd MMG MMG [id number] 020 [place] 12:33:00 12:33:00 1013 [facility] 2019-12-15 2019-12-15 Outpatient FERGUSON_RACHAEL MEHOP MEHOP 909 [place] 04:48:00 04:48:00 HN 1013 [facility] 2019-12-15 2019-12-15 Jesus [facility] [place] - [id number] M at[place] 00:00:00 00:00:00 Kenrick Zazueta MD: Medical Medica l [address] [facility] [address], [place] [address] , Ph. [phone] 2019-12-03 2019-12-03 Outpatient FERGUSON_JO MEHOP MEHOP 909 [place] 04:14:00 04:14:00 HN 1001 [facility] 2019-11-27 2019-11-27 Outpatient FERGUSON_JO MEHOP MEHOP 909 [place] 05:15:00 05:15:00 HN 0925 [facility] 2019-11-20 2019-11-20 Outpatient FERGUSON_JO MEHOP MEHOP 909 [place] 10:23:00 10:23:00 HN 0918 [facility] 2019-11-18 2019-11-18 Outpatient A_Byrd [facility] [id number] 020 [place] 11:04:00 11:04:00 0916 Medical Group 2019-11-18 2019-11-18 Outpatient A_Byrd [facility] [id number] 020 [place] 11:04:00 11:04:00 0925 Medical Group 2019-11-17 2019-11-17 Outpatient A_Byrd [facility] [id number] 020 [place] 05:15:00 05:15:00 0915 Medical Group 2019-11-17 2019-11-17 Kelly Becerril [facility] [place] - [id number] M [place] 00:00:00 00:00:00 MD Luis: [address] [place] [address] , Ph. 2019-11-03 2019-11-03 Outpatient A_Byrd [facility] [id number] 020 [place] 06:39:00 06:39:00 0901 Medical Group 2019-11-03 2019-11-03 Kvng Guajardo [facility] [place] - [id number] [place] 00:00:00 00:00:00 : Seven Ortiz [address], Otolaryngol [facility] [address] , Ph. 2019-10-30 2019-10-30 Outpatient FERGUSON_JO MEHOP MEHOP 909 [place] 12:08:00 12:08:00 HN 0828 [facility] 2019-10-27 2019-10-27 [facility] [id number] 020 [place] 07:33:00 07:33:00 0825 da [facility] 2019-10-23 2019-10-23 Outpatient FERGUSON_JO MEHOP MEHOP 909 [place] 11:17:00 11:17:00 HN 0821 [facility] 2019-10-23 2019-10-23 Outpatient A_Byrd [facility] [id number] 020 [place] 11:14:00 11:14:00 0821 da [facility] 2019-10-22 2019-10-22 Outpatient [facility] [id number] 020 [place] 02:57:00 02:57:00 0820 da [facility] 2019-10-20 2019-10-20 Outpatient FERGUSON_JO MEHOP MEHOP 909 [place] 01:57:00 01:57:00 HN 0818 [facility] 2019-10-18 2019-10-18 Outpatient FERGUSON_JO MEHOP MEHOP 909 [place] 02:10:00 02:10:00 HN 0816 [facility] 2019-10-07 2019-10-07 Outpatient A_Byrd [facility] [id number] 020 [place] 03:55:00 03:55:00 0805 da Medical [...] Program 2019-05-27 2019-05-27 Outpatient Shield MMG MMG [id number] 020 [place] 06:16:00 06:16:00 0325 da [facility] Group 2019-05-12 2019-05-12 Outpatient Shield MMG MMG [id number] [place] 07:13:00 07:13:00 0310 da [facility] 2019-05-12 2019-05-12 Jesus MMG [place] - [id number] M [place] 00:00:00 00:00:00 Kenrick Zazueta MD: Medical Medica [address] [place] [facility] [address], [place] [address] , Ph. [phone] 2019-05-05 2019-05-05 Outpatient Shield MMG MMG [id number] 020 [place] 05:46:00 05:46:00 0303 Medical Group 2019-05-05 2019-05-05 Kelly N MMG [place] - [id number] M [place] 00:00:00 00:00:00 MD Luis: [employer] [address] [place] [address] - [address], [facility] [address] , Ph. 2019-04-29 2019-04-29 Outpatient Shield MMG MMG [id number] 020 [place] 06:31:00 06:31:00 0226 Medical Group 2019-04-29 2019-04-29 Outpatient Shield MMG MMG [id number] 020 [place] 06:31:00 06:31:00 0302 da [facility] 2019-04-20 2019-04-20 Outpatient FERGUSON_JO MEHOP MEHOP 909 [place] 05:19:00 05:19:00 HN 0615 [facility] 2019-04-20 2019-04-20 Outpatient FERGUSON_JO MEHOP MEHOP 909 [place] 05:19:00 05:19:00 HN 0217 [facility] 2018-02-14 2018-02-14 [facility] [id number] 020 [place] 11:22:00 11:22:00 0218 [facility] Results Test Description Test Time Test Comments Results Result Comments Source COMPREHENSIVE METABOLIC PANEL 2022-04-26 04:55:02 Test Item Value Reference Range Interpretation Comme nts GLUCOSE (test code = 2216) 115 MG/DL 70-99 H BUN (test code = 2207) 15 MG/DL 6-20 CREATININE (test code = 0.69 MG/DL 0.60-1.30 2213) eGFR (2020 CKD-EPI) (test 101 ML/MIN/1.73 >60 code = 32270) CALC BUN/CREAT (test code = 22 RATIO 08-29) SODIUM (test code = 223) 139 MEQ/L 133-146 POTASSIUM (test code = 2228) 4.0 MEQ/L 3.5-5.4 CHLORIDE (test code = 2214) 104 MEQ/L 95-107 CARBON DIOXIDE (test code = 21 MEQ/L -2205) CALCIUM (test code = 220) 9.5 MG/DL 8.5-10.5 PROTEIN, TOTAL (test code = 6.2 G/DL 6.1-8.3 2228) ALBUMIN (test code = 2201) 4.4 G/DL 3.5-5.2 CALC GLOBULIN (test code = 1.8 G/DL 1.9-3.7 L 2239) CALC A/G RATIO (test code = 2.4 RATIO 1.0-2.6 2233) BILIRUBIN, TOTAL (test code 0.8 MG/DL See_Comment [Automated message] The = 2206) system which ge nerated this result transmit oscar reference range : <=1.2. The reference range was not used to interpr et this result as esa l/abnormal. ALKALINE PHOSPHATASE (test 67 U/L 40-136 code = 2204) AST (test code = 2218) 17 U/L 9-40 ALT (test code = 2219) 36 U/L 5-40 HEMOGLOBIN [id number] 04:29:28 Test Item Value Reference Range Interpretation Comments HEMOGLOBIN A1c (test 5.7 % 4.2-5.6 H AMERIC AN DIABETES code = 92912) ASSOCIATION IDELINES FOR HGB A1C: PREDIABETES/INC REASED RISK . . . . . . . 5.7 -6.4% DIAGNOSIS OF DI ABETES . . . . . . . . . >=6 .5% WITH CONFIRMATION OR APPROPRIATE SYMPTOMS NOTE: ASSAY MAY BE AFFECTED BY HEMOGLOBINOPATH IES (SICKLE CELL ANEMIA, S- C DISEASE, OTHERS) OR JESSE FICIALLY LOWERED BY DECR EASED RED CELL SURVIVAL ( HEMOLYTIC ANEMIAS, BLOOD LOSS, ETC.). CONSIDER ALTERN ATE TESTING OR LABORATORY C ONSULTATION. THYROID II PROFILE (TU,T4,FTI,TSH)2022-04-26 04:23:58 Test Item Value Reference Range Interpretation Comments T-UPTAKE (test code 33.1 % 24.3-39.0 = 2817) THYROX. BIND. 1.0 0.8-1.3 CAPAC. (test code = 08910) T4 (THYROXINE) 7.0 UG/DL 4.5-10.5 (test code = 2819) CORRECTED T4 (FTI) 7.0 UG/DL 4.2-11.6 (test code = 2820) TSH, THIRD 1.080 UIU/ML 0.400-4.100 [facility] has im portant GENERATION (test pathology s taff code = 2821) changes effecti ve 05/02/2022. New pathology staff will provide uninter rupted, excellent patie nt care and clinical consultation. S ee URL: [email or web address] UNLE SS OTHERWISE INDIC ATED, ALL TESTING PER FORMED AT [facility], [address] [place] [address] DIRECTOR: JUDSON BAH M.D. CLIA NUMBER [id number] CAP ACCREDITATION N O. [id number] HEPATITIS PANEL, [id number] 03:20:59 Test Item Value Reference Range Interpretation Comments HEPATITIS A IgM (test NON-REACTIVE NON-REACTIVE code = 23764) HEPATITIS B CORE IgM NON-REACTIVE NON-REACTIVE (test code = 4644) HEPATITIS B SURF AG NON-REACTIVE NON-REACTIVE (test code = 2739) HEPATITIS C ANTIBODY NON-REACTIVE NON-REACTIVE (test code = 4675) INTERPRETATION (NOTE) Hepatitis A HEPATITIS A: (test code sero logy shows no = 2552) evidence of acu te hepatitis A. INTERPRETATION (NOTE) Hepatitis B HEPATITIS B: (test code sero logy shows no = 50008) evidence of acu te hepatitis B and no indication of exposure to hepatitis B vir us in the previous nehemias eight months. INTERPRETATION (NOTE) Hepatitis C HEPATITIS C: (test code sero logy shows no = 68145) evidence of exposure to hepatitisC viru s at this time. I t can take up to 12 months after exposure tothe hepatitis C vir us for antibodies to become detectab le in the blood in certain patient s. CBC W/AUTO DIFF WITH [id number] 03:04:15 Test Item Value Reference Range Interpretation Comments WBC (test code = 12.9 K/UL 3.5-11.0 H 1001) RBC (test code = 4.67 M/UL 3.80-5.40 1002) HEMOGLOBIN (test code 15.1 G/DL 11.5-15.5 = 1003) HEMATOCRIT (test code 44.9 % 34.0-45.0 = 1004) MCV (test code = 96.1 fL 80.0-99.0 1005) MCH (test code = 32.3 PG 25.0-33.0 1006) MCHC (test code = 33.6 G/DL 31.0-36.0 1007) RDW (test code = 12.5 % 11.5-15.0 1038) NEUTROPHILS (test 74.2 % code = 1008) LYMPHOCYTES (test 19.0 % code = 1010) MONOCYTES (test code 6.0 % = 1011) EOSINOPHILS (test 0.1 % code = 1012) BASOPHILS (test code 0.2 % = 1013) IMMATURE GRANULOCYTES 0.5 % (test code = 1036) NUCLEATED RBCS (test 0.0 /100 WBC'S See_Comment [Aut omated code = 1065) message] The sy stem which generated this result transmitted reference range : 0.0. The refere nce range was not u sed to interpret th is result as normal/abnormal . PLATELET COUNT (test 300 K/UL 130-400 code = 1015) ABSOLUTE NEUTROPHILS 9.54 K/UL 1.50-7.50 H (test code = 1066) ABSOLUTE LYMPHOCYTES 2.44 K/UL 1.00-4.00 (test code = 1067) ABSOLUTE MONOCYTES 0.77 K/UL 0.20-1.00 (test code = 1068) ABSOLUTE EOSINOPHILS 0.01 K/UL 0.00-0.50 (test code = 1040) ABSOLUTE BASOPHILS 0.02 K/UL 0.00-0.20 (test code = 1069) ABS IMMATURE 0.07 K/UL 0.00-0.10 GRANULOCYTES (test code = 1020) ABS NUCLEATED RBCS 0.00 K/UL 0.00-0.11 (test code = 72241) AUREA w/Reflex if [id number] 00:00:00 Test Item Value Reference Range Interpretation Comments AUREA Direct (test code = 8061-4) Negative Negative Sedimentation [id number]-[id number] 00:00:00 Test Item Value Reference Range Interpretation Comments Sedimentation 22 mm/hr See_Comment [Automated me ssage] Rate-moeren (test The sy stem which code = 4537-7) generated thi s result transmitted ref erence range: 0-40 mm/ hr. The reference r cynthia was not used to interpret this result as normal/abnor mal. Rheumatoid Arthritis [id number] 00:00:00 Test Item Value Reference Range Interpretation Comments Rheumatoid Factor <10.0 IU/mL See_Comment [Automate d message] (RF) (test code = The system which 49008-4) generated this result transmitted ref erence range: <14.0 IU /mL. The reference r cynthia was not used to interpret this result as normal/abnor mal. C-Reactive Protein, Quant (CRP)2022-02-05 00:00:00 Test Item Value Reference Range Interpretation Comments C-Reactive Protein, 16 mg/L See_Comment H [Automa oscar message] The Quant (test code = system ich generated 1987-07) this result tra nsmitted reference range : 0-10 mg/L. The refer ence range was not used to interpret this result as normal/abnormal . Surgical pathology [id number] 07:02:00 Test Item Value Reference Range Interpretation Comments Surgical pathology see emr pathology study (test code = report. 90374-9) [facility] W Auto Differential panel - [id number] 02:52:00 Test Item Value Reference Range Interpretation Comments white blood count (test code = 10.5 K/uL 4.0-11.5 white blood count) red blood count (test code = red 4.86 M/uL 3.80-5.20 blood count) hemoglobin (test code = 15.0 g/dL 10.5-15.7 hemoglobin) hematocrit (test code = 45.7 % 34.0-50.0 hematocrit) MCV [Entitic volume] (test code = 94.0 fL 86-100 67050-5) mean corpuscular hemoglobin (test 30.9 pg 26.2-33.4 [...] 44.4-80.1 leukocytes in Blood (test code = 86110-3) Immature granulocytes [#/volume] 0.0 K/uL 0.0-0.03 in Blood (test code = 83941-1) lymphocyte% (test code = 33.5 % 10.0-50.0 lymphocyte%) mono % (test code = mono %) 6.4 % 3.6-12.0 eos % (test code = eos %) 0.3 % 0.0-5.4 Basophils/100 leukocytes in 0.2 % 0.1-1.2 Unspecified specimen (test code = 96557-1) Band form neutrophils [#/volume] 6.20 K/uL 1.56-6.13 H in Blood (test code = 38447-0) Lymphocytes [#/volume] in 3.5 K/uL 1.18-3.74 Unspecified specimen by Automated count (test code = 91846-6) mono # (test code = mono #) 0.67 K/uL 0.24-0.86 eos # (test code = eos #) 0.03 K/uL 0.04-0.36 L basophil # (test code = basophil 0.02 K/uL 0.01-0.08 #) NRBC% (test code = NRBC%) 0 /100 WBC 0-0.2 NRBC# (test code = NRBC#) 0 K/uL [facility], method unspecified - [id number] 02:52:00NeutrophilsBandLymphocyteAtypical LymphMonocyteEosinophilBasophilMetamyelocyteMyelocytePromyelocyteBlastsNucleated Red Blood CellDifferential CommentAbs Neutrophil Count (Man)Abs Lymph Count (Man)Abs Monocyte Count (Man)Abs Eosinophil Count (Man)Abs Basophil Count (Man)Platelet EstimatePlatelet Morphol ogyPoikilocytosisAnisocytosisMacrocytosisTarget CellsStomatocyteToxic GranulationBurr CellsHypersegmented PolysRouleauToxic VacuolationSmudge Cells [facility]villeComprehensive metabolic 2000 panel - Serum or Plasma 2020-06-16 02:52:00 [...] Serum or Plasma (test code = 6768-6) [facility] 2000 panel - Serum or Plasma 2020-01-14 11:07:00 [...] Serum or Plasma (test code = 6768-6) [facility] W Auto Differential panel - [id number] 10:23:00 Test Item Value Reference Range Interpretation Comments white blood count (test code = 7.5 K/uL 4.0-11.5 white blood count) red blood count (test code = red 4.42 M/uL 3.80-5.20 blood count) hemoglobin (test code = 13.6 g/dL 10.5-15.7 hemoglobin) hematocrit (test code = 42.2 % 34.0-50.0 hematocrit) MCV [Entitic volume] (test code = 95.5 fL 86-100 37660-4) mean corpuscular hemoglobin (test 30.8 pg 26.2-33.4 [...] L leukocytes in Blood (test code = 57909-8) Immature granulocytes [#/volume] 0.0 K/uL 0.0-0.03 in Blood (test code = 82332-2) lymphocyte% (test code = 44.3 % 10.0-50.0 lymphocyte%) mono % (test code = mono %) 8.5 % 3.6-12.0 eos % (test code = eos %) 3.2 % 0.0-5.4 Basophils/100 leukocytes in 0.5 % 0.1-1.2 Unspecified specimen (test code = 09389-6) Band form neutrophils [#/volume] 3.24 K/uL 1.56-6.13 in Blood (test code = 84147-7) Lymphocytes [#/volume] in 3.3 K/uL 1.18-3.74 Unspecified specimen by Automated count (test code = 17708-8) mono # (test code = mono #) 0.64 K/uL 0.24-0.86 eos # (test code = eos #) 0.24 K/uL 0.04-0.36 basophil # (test code = basophil 0.04 K/uL 0.01-0.08 #) NRBC% (test code = NRBC%) 0 /100 WBC 0-0.2 NRBC# (test code = NRBC#) 0 K/uL [facility]ville[facility] panel, method unspecified - [id number] 10:23:00NeutrophilsLymphocyteMonocytePlatelet EstimatePlatelet MorphologyHypochromasiaGiant PlateletsAl[facility] Of GreenvilleUrinalysis Complete 2016-10-04 21:23:00 Test Item Value Reference Range Interpretation Comments Color (test code = COLOR) Yellow Yellow,Straw,Pl N yellow Clarity (test code = Clear Clear N CLAR) Specific [place] (test 1.020 1.001-1.035 N code = SPGR) [...] (test code = Few /HPF BACT) Glycosylated [id number] 21:21:00 Test Item Value Reference Range Interpretation Comments HBA1c (test code = HBA1C) 4.9 % 4.8-5.9 N Thyroid Stimulating Hormone (TSH)2016-10-04 21:00:00 Test Item Value Reference Range Interpretation Comments TSH (test code = TSH) 3.07 mIU/mL 0.270-4.200 N Lipid [id number] 20:56:00 Test Item Value Reference Range Interpretation Comments Cholesterol (test 185 mg/dL 0-200 N code = CHOL) Triglycerides (test 250 mg/dL 9-200 H code = TRIG) HDL (test code = 40 mg/dL 50-60 L HDL) Chol/HDL (test code 4.6 Ratio 0.0-4.4 H = CHOLPHDL) LDL, Calculated 95 0-130 N (NOTE)RISK O F HEART (test code = LDLC) DISEASEPu blished by [place]au[place] Heart AssociationAnal yte Optimal Boderl ine Increased RiskC HOL <200 200-239 >240TRI G <150 150-199 >200HDL Male: >60 <40HDL Fema le: >60 <50LDL <100 130 -159 >160LDL NEAR OP TIMAL IS 100-129 VLDL (test code = 50 mg/dL 5-40 H VLDL) LDL/HDL (test code = 2 LDLPHDL) [id number] 20:56:00 Test Item Value Reference Range Interpretation Comments [place] (test code = LI) 0.37 mmol/L 0.6-1.2 L Comprehensive Metabolic [id number] 20:56:00 Test Item Value Reference Range Interpretation [...] National Kid[employer] Foundation,[email or web address] :[email or web address] CBC with [id number] 20:49:00 Test Item Value Reference Range Interpretation [...] code = ALYMPH) 2.6 K/cumm 0.5-4.6 N Garrett Abs (test code = AMONO) 0.8 K/cumm 0.0-1.2 N Eos Abs (test code = AEOS) 0.26 K/cumm 0.00-0.74 N Baso Abs (test code = ABASO) 0.1 K/cumm 0.00-0.21 N
[2022-05-03] MEDS ORDERED: ONDANSETRON 4 MG/2 ML VIAL ONE (20:25)
[2022-05-03] MEDS ORDERED: HYDROMORPHONE HCL 1 MG/ML INJ ONE ×2 (20:25→22:16)
[2022-05-03] MEDS ORDERED: NA CHLORIDE 0.9% 1,000 ML ONE ×2 (20:26→22:16)
[2022-05-03 20:32] LABS: Absolute Lymphocytes (CBC) 1.8 K/uL (0.7-4.9); Hematocrit 39.8 % (36.0-45.0); Lymphocytes % 13.6 % (15.3-44.8); MCV 97.2 fL (80-100); MPV 7.6 fL (7.6-11.3); RBC Red Blood Cell Count 4.09 M/uL (3.86-4.86)
[2022-05-03 20:47] LABS: Albumin 2.9 g/dL (3.4-5.0); Bilirubin Total 0.8 mg/dL (0.2-1.0); Potassium 3.8 mmol/L (3.5-5.1); Protein, Total 6.6 g/dL (6.4-8.2)
--- NOTE | 2022-05-03 21:52 | RAD REPORT ---
EXAM DESCRIPTION: CT - Abdomen Pelvis W Contrast - 05/03/2022 9:08 pm CLINICAL HISTORY: ABD PAIN COMPARISON: Abdomen Pelvis Wo Contrast dated 08/10/2021; Abdomen Pelvis W Contrast dated 05/05/2021; Abdomen Pelvis W Contrast dated 12/22/2017; Abdomen Pelvis W Contrast dated 12/20/2017No compari sons TECHNIQUE: Thin cut axial CT imaging of the abdomen and pelvis was performed following intravenous a dministration of Isovue 300. Multiplanar reformats were generated and reviewed. All CT scans are performed using dose optimization technique as appropriate and may include automated exposure control or mA/KV adjustment according to patient size. FINDINGS: No suspicious findings in the lung bases. The liver, spleen, and pancreas show no suspicious findings. Gallbladder is surgically removed. No ev idence of intra or extrahepatic biliary ductal dilation. Symmetric renal function is seen with no hydronephrosis or suspicious renal mass. No evidence of obstruction or ileus. Colonic diverticulosis, with multiple segments of wall thickenin g and adjacent inflammatory changes along the transverse and descending colon. A small focus of micro perforation is suspected tracking anteriorly along the most distal involved segment of the descendin g colon (she see axial image 56/97). Intramural edema and possible early phlegmon along the more prox imal descending colon segment (see coronal image 53/131 among others). No free air, free fluid or ext raluminal well-circumscribed collection. Mild fluid tracking along the left paracolic gutter. No raul ia, mass or bulky lymphadenopathy. The urinary bladder is without significant finding. No suspicious bony findings. Bilateral sacroiliac cannulated fusion screws are present. IMPRESSION: Multifocal involvement acute diverticulitis, including the left transverse colon, as wel l as proximal and distal descending colon. A small focus of micro perforation suspected along the mos t distal descending colon. Intramural edema and possible early phlegmon along the more proximal desce nding colon. The findings were communicated to Werner Flores on 05/03/2022 at 21:46 hours.
--- NOTE | 2022-05-03 22:01 | ER ---
Nurse's Notes [facility] Name: Tash Manuel Age: 56 yrs Sex: Female : 1965 Arrival Date: 05/03/2022 Time: 19:10 Bed 15 Private MD: Diagnosis: Diverticulitis of large intestine with perforation and abscess Presentation: 05/03 21:01 Chief complaint: Patient states: left lower abdominal pain starting 2 days ago. history lg3 of diverticulitis. Coronavirus screen: Client denies travel out of the [place] in the last 14 days. At this time, the client does not indicate any symptoms associated with coronavirus-19. Ebola Screen: No symptoms or risks identified at this time. Initial Sepsis Screen: Does the patient meet any 2 criteria? No. Patient's initial sepsis screen is negative. Does the patient have a suspected source of infection? No. Patient's initial sepsis screen is negative. Risk Assessment: Do you want to hurt yourself or someone else? Patient reports no desire to harm self or others. Onset of symptoms was May 01, 2021. 21:01 Method Of Arrival: Ambulatory lg3 21:01 Acuity: NIKOS 3 lg3 Triage Assessment: 21:02 General: Appears in no apparent distress. uncomfortable, Behavior is calm, cooperative. lg3 Pain: Complains of pain in left lower quadrant Pain currently is 8 out of 10 on a pain scale. EENT: No deficits noted. No signs and/or symptoms were reported regarding the EENT system. Neuro: No deficits noted. Prieto Agitation-Sedation Scale (RASS): 0 - Alert and Calm Level of Consciousness is awake, alert, obeys commands, Oriented to person, place, time, situation. Cardiovascular: No deficits noted. Denies chest pain, shortness of breath, Capillary refill < 3 seconds Clubbing of nail beds is absent JVD is absent Patient's skin is warm and dry. Respiratory: No deficits noted. Airway is patent Trachea midline Respiratory effort is even, unlabored, Respiratory pattern is regular, symmetrical. GI: Abdomen is round non-distended, Bowel sounds present X 4 quads. Abd is soft X 4 quads Abdomen is tender to palpation in left lower quadrant Reports lower abdominal pain, cramping. : No deficits noted. No signs and/or symptoms were reported regarding the genitourinary system. Derm: No signs and/or symptoms reported regarding the dermatologic system. Skin is intact, is healthy with good turgor, Skin is dry, Skin is normal, Rash noted that is red, on right breast and left breast Denies pain. Musculoskeletal: No deficits noted. No signs and/or symptoms reported regarding the musculoskeletal system. Circulation, motion, and sensation intact. Range of motion: intact in all extremities. Historical: - Allergies: 21:02 Morphine; lg3 21:02 Fentanyl; lg3 - PMHx: 21:02 Arthritis; Asthma; lg3 - PSHx: 21:02 esophageal reconstruction; spine; hysterectomy; Cholecystectomy; right tibia; lg3 - Immunization history:: Adult Immunizations up to date, Client reports having NOT received the Covid vaccine. Flu vaccine is not up to date. - Social history:: Smoking status: Patient denies any tobacco usage or history of. Patient/guardian denies using alcohol, street drugs. Screenin:07 [facility] ED Fall Risk Assessment (Adult) History of falling in the last 3 months, lg3 including since admission No falls in past 3 months (0 pts). Abuse screen: Denies threats or abuse. Denies injuries from another. Nutritional screening: No deficits noted. Tuberculosis screening: No symptoms or risk factors identified. Assessment: 21:07 General: see triage assessment. lg3 23:23 Reassessment: Patient appears in no apparent distress at this time. No changes from lg3 previously documented assessment. Patient and/or family updated on plan of care and expected duration. Pain level reassessed. Patient is alert, oriented x 3, equal unlabored respirations, skin warm/dry/pink. Patient states feeling better. Patient states symptoms have improved. 05/04 00:46 Reassessment: Patient appears in no apparent distress at this time. No changes from lg3 previously documented assessment. Patient and/or family updated on plan of care and expected duration. Pain level reassessed. Patient is alert, oriented x 3, equal unlabored respirations, skin warm/dry/pink. Patient denies pain at this time. Patient states feeling better. Patient states symptoms have improved. Vital Signs: 05/03 22:21 BP 130 / 82; Pulse 86; Resp 15; Temp 98.5(O); Pulse Ox 96% on R/A; rv1 22:23 BP 133 / 88; Pulse 95; Resp 16; Temp 99.2; Pulse Ox 97% on R/A; Weight 90.72 kg; Height lg3 5 ft. 3 in. (160.02 cm); Pain 0/10; 03 00:46 BP 129 / 84; Pulse 88; Resp 16 S; Temp 98.7(O); Pulse Ox 97% on R/A; lg3 05/03 22:23 Body Mass Index 35.43 (90.72 kg, 160.02 cm) lg3 ED Course: 05/03 19:10 Patient arrived in ED. ja2 19:40 Werner Flores, BHARTI is PHCP. pm1 19:40 Ant Salas MD is Attending Physician. pm1 20:26 CBC with Diff Sent. rv1 20:26 CMP Sent. rv1 20:26 Lipase Sent. rv1 20:26 Inserted saline lock: 22 gauge in right forearm, using aseptic technique. Blood rv1 collected. 21:02 Triage completed. lg3 21:02 Arm band placed on right wrist. lg3 21:07 Poppy Petersen, RN is Primary Nurse. lg3 21:07 Patient has correct armband on for positive identification. Placed in gown. Bed in low lg3 position. Call light in reach. Side rails up X 1. Client placed on continuous cardiac and pulse oximetry monitoring. NIBP monitoring applied. pattern room attendant on. Door closed. Noise minimized. Warm blanket given. Family accompanied patient. 22:15 Initiated transfer to [facility], spoke with Kenzie. wm 22:40 SARS RAPID Sent. lg3 23:24 Pt accepted for transfer to [facility] by Coral Rodriguez. 05/04 00:48 No provider procedures requiring assistance completed. Patient transferred, IV remains lg3 in place. intact, No redness/swelling at site. Administered Medications: 05/03 20:25 Drug: NS 0.9% 1000 ml Route: IV; Rate: 1 bolus; Site: right forearm; pf1 21:08 Follow up: Response: No adverse reaction; IV Status: Completed infusion; IV Intake: lg3 1000ml 20:25 Drug: Zofran (Ondansetron) 4 mg Route: IVP; Site: right forearm; pf1 21:08 Follow up: Response: No adverse reaction; Marked relief of symptoms lg3 20:25 Drug: Dilaudid (HYDROmorphone) 1 mg Route: IVP; Site: right forearm; pf1 21:08 Follow up: Response: No adverse reaction; Marked relief of symptoms; Pain is decreased lg3 22:33 Drug: Flagyl (metroNIDAZOLE) 500 mg Volume: 100 ml; Route: IVPB; Rate: 200 ml/hr; lg3 Infused Over: 30 mins; Site: right forearm; 23:22 Follow up: Response: No adverse reaction; IV Status: Completed infusion; IV Intake: lg3 100ml 22:33 Drug: NS 0.9% 1000 ml Route: IV; Rate: 100 ml/hr; Site: right forearm; lg3 05/04 00:48 Follow up: Response: No adverse reaction; IV Status: Infusion continued upon transfer; lg3 IV Intake: 200ml 05/03 22:33 Drug: Dilaudid (HYDROmorphone) 1 mg Route: IVP; Site: right forearm; lg3 23:22 Follow up: Response: No adverse reaction; Marked relief of symptoms; Pain is decreased lg3 23:23 Drug: LevaQUIN (levofloxacin) 750 mg Volume: 150 ml; Route: IVPB; Infused Over: 90 lg3 mins; Site: right forearm; 03 00:37 Follow up: Response: No adverse reaction; IV Status: Completed infusion; IV Intake: lg3 150ml Medication: 00:48 VIS not applicable for this client. lg3 Intake: 05/03 21:08 IV: 1000ml; Total: 1000ml. lg3 23:22 IV: 100ml; Total: 1100ml. lg3 05/04 00:37 IV: 150ml; Total: 1250ml. lg3 00:48 IV: 200ml; Total: 1450ml. lg3 Outcome: 05/03 22:00 ER care complete, transfer ordered by . pm1 05/04 00:48 Transferred by ground [facility] to [facility], Transfer form completed. lg3 Condition: stable Instructed on the need for transfer, Demonstrated understanding of instructions. 00:49 Patient left the ED. lg3 Signatures: Werner Flores, BHARTI DIE MAKER STAMPING pm1 Poppy Petersen RN RN lg3 Josy Mccullough Jessica ja2 finley, Pamala, RN RN pf1 Sandra An rv1 Corrections: (The following items were deleted from the chart) 05/03 22:23 21:00 BP 130 / 82; Pulse 95bpm; Resp 16bpm; Pulse Ox 92% RA; Temp 99.2F; 90.72 kg; rv1 Height 5 ft. 3 in.; BMI: 35.4; Pain 0/10; rv1 23:51 21:58 Pt accepted for transfer to [facility] by Dr. Abdalla [facility] 23:51 21:58 Pt accepted for transfer to [facility] by Coral Rodriguez [facility] 05/04 00:46 05/03 22:23 BP 130 / 82; Pulse 95bpm; Resp 16bpm; Pulse Ox 97% RA; Temp 99.2F; 90.72 lg3 kg; Height 5 ft. 3 in.; BMI: 35.4; Pain 0/10; rv1
--- NOTE | 2022-05-03 22:01 | EDPHYS ---
Physician Documentation [facility] Name: Tash Manuel Age: 56 yrs Sex: Female : 1965 Arrival Date: 05/03/2022 Time: 19:10 Bed 15 Private MD: ED Physician Ant Salas HPI: 05/03 20:06 This 56 yrs old Female presents to ER via Unassigned with complaints of Abdominal Pain. pm1 20:06 The patient presents with abdominal pain in the left lower quadrant. Onset: The pm1 symptoms/episode began/occurred 2 day(s) ago. The symptoms do not radiate. Associated signs and symptoms: Pertinent negatives: nausea, vomiting, and diarrhea. The symptoms are described as sharp. Modifying factors: The symptoms are alleviated by nothing, the symptoms are aggravated by nothing. Severity of pain: in the emergency department the pain is actually worse. The patient has experienced similar episodes in the past, a few times, today's symptoms are similar, to previous Diverticulitis. The patient has not recently seen a physician. After eating popcorn a few days prior to onset of pain. Historical: - Allergies: 21:02 Morphine; lg3 21:02 Fentanyl; lg3 - PMHx: 21:02 Arthritis; Asthma; lg3 - PSHx: 21:02 esophageal reconstruction; spine; hysterectomy; Cholecystectomy; right tibia; lg3 - Immunization history:: Adult Immunizations up to date, Client reports having NOT received the Covid vaccine. Flu vaccine is not up to date. - Social history:: Smoking status: Patient denies any tobacco usage or history of. Patient/guardian denies using alcohol, street drugs. ROS: 20:06 Constitutional: Negative for fever, chills, and weight loss, Cardiovascular: Negative pm1 for chest pain, palpitations, and edema, Respiratory: Negative for shortness of breath, cough, wheezing, and pleuritic chest pain. 20:06 Back: Negative for injury and pain, : Negative for injury, bleeding, discharge, and swelling, MS/Extremity: Negative for injury and deformity, Skin: Negative for injury, rash, and discoloration, Neuro: Negative for headache, weakness, numbness, tingling, and seizure. 20:06 Abdomen/GI: Positive for abdominal pain, Negative for nausea, vomiting, and diarrhea. 20:06 All other systems are negative. Exam: 20:06 Constitutional: This is a well developed, well nourished patient who is awake, alert, pm1 and in no acute distress. Head/Face: Normocephalic, atraumatic. 20:06 Back: No spinal tenderness. No costovertebral tenderness. Full range of motion. Skin: Warm, dry with normal turgor. Normal color with no rashes, no lesions, and no evidence of cellulitis. MS/ Extremity: Pulses equal, no cyanosis. Neurovascular intact. Full, normal range of motion. 20:06 Cardiovascular: Exam negative for acute changes, Rate: normal, Rhythm: regular, Pulses: no pulse deficits are appreciated. 20:06 Respiratory: Exam negative for acute changes, respiratory distress, shortness of breath. 20:06 Abdomen/GI: Inspection: obese Palpation: soft, in all quadrants, moderate abdominal tenderness, in the left upper quadrant and left lower quadrant. 20:06 Neuro: Exam negative for acute changes, Orientation: is normal, Mentation: is normal, Motor: is normal, moves all fours. Vital Signs: 22:21 BP 130 / 82; Pulse 86; Resp 15; Temp 98.5(O); Pulse Ox 96% on R/A; rv1 22:23 BP 133 / 88; Pulse 95; Resp 16; Temp 99.2; Pulse Ox 97% on R/A; Weight 90.72 kg; Height lg3 5 ft. 3 in. (160.02 cm); Pain 0/10; 03/03 00:46 BP 129 / 84; Pulse 88; Resp 16 S; Temp 98.7(O); Pulse Ox 97% on R/A; lg3 03/02 22:23 Body Mass Index 35.43 (90.72 kg, 160.02 cm) lg3 MDM: 03/ 20:05 Patient medically screened. pm1 21:47 Data reviewed: vital signs. pm1 21:47 Management of patient was discussed with the following: Molding Sander: Radiologist called pm1 and informed patient with multifocal diverticulitis on CT. 21:58 Management of patient was discussed with the following: Molding Sander: Foreign Roque MD, pm1 he requests transfer for higher level of care for colorectal surgery. 21:58 Counseling: I had a detailed discussion with the patient and/or guardian regarding: the pm1 historical points, exam findings, and any diagnostic results supporting the discharge/admit diagnosis, lab results, radiology results, the need to transfer to another facility, [facility] does not immediately have the required specialist, colorectal surgery. 22:56 Management of patient was discussed with the following: Molding Sander: Colorectal Surgeon pm1 will see the patient. 05/03 20:05 Order name: CBC with Diff pm1 05/03 20:05 Order name: CMP pm1 05/03 20:05 Order name: Lipase pm1 05/03 20:05 Order name: CT Abd/Pelvis - IV Contrast Only pm1 05/03 20:05 Order name: IV Saline Lock; Complete Time: 20:26 pm1 05/03 20:05 Order name: Labs collected and sent; Complete Time: 20:26 pm1 05/03 20:33 Order name: CBC with Automated Diff; Complete Time: 20:45 EDMS 05/03 20:47 Order name: Comprehensive Metabolic Panel; Complete Time: 20:55 EDMS 05/03 20:47 Order name: Lipase; Complete Time: 20:55 EDMS 05/03 21:53 Order name: CT; Complete Time: 21:54 EDMS 05/03 22:00 Order name: NPO; Complete Time: 22:33 pm1 05/03 22:02 Order name: SARS RAPID pm1 05/03 23:01 Order name: SARS-COV-2 Antigen Rapid; Complete Time: 23:17 EDMS Administered Medications: 20:25 Drug: NS 0.9% 1000 ml Route: IV; Rate: 1 bolus; Site: right forearm; pf1 21:08 Follow up: Response: No adverse reaction; IV Status: Completed infusion; IV Intake: lg3 1000ml 20:25 Drug: Zofran (Ondansetron) 4 mg Route: IVP; Site: right forearm; pf1 21:08 Follow up: Response: No adverse reaction; Marked relief of symptoms lg3 20:25 Drug: Dilaudid (HYDROmorphone) 1 mg Route: IVP; Site: right forearm; pf1 21:08 Follow up: Response: No adverse reaction; Marked relief of symptoms; Pain is decreased lg3 22:33 Drug: Flagyl (metroNIDAZOLE) 500 mg Volume: 100 ml; Route: IVPB; Rate: 200 ml/hr; lg3 Infused Over: 30 mins; Site: right forearm; 23:22 Follow up: Response: No adverse reaction; IV Status: Completed infusion; IV Intake: lg3 100ml 22:33 Drug: NS 0.9% 1000 ml Route: IV; Rate: 100 ml/hr; Site: right forearm; lg3 05/04 00:48 Follow up: Response: No adverse reaction; IV Status: Infusion continued upon transfer; lg3 IV Intake: 200ml 05/03 22:33 Drug: Dilaudid (HYDROmorphone) 1 mg Route: IVP; Site: right forearm; lg3 23:22 Follow up: Response: No adverse reaction; Marked relief of symptoms; Pain is decreased lg3 23:23 Drug: LevaQUIN (levofloxacin) 750 mg Volume: 150 ml; Route: IVPB; Infused Over: 90 lg3 mins; Site: right forearm; 05/04 00:37 Follow up: Response: No adverse reaction; IV Status: Completed infusion; IV Intake: lg3 150ml Disposition: 06:01 Co-signature as Attending Physician, Ant Salas MD I reviewed the patient's care rt provided by the Advanced Practice Provider and agree with the diagnosis and treatment plan. Disposition Summary: 05/03/22 22:00 Transfer Ordered Transfer Location: Other Acute Care Facility pm1 Reason: Higher level of care pm1 Condition: Stable pm1 Problem: new pm1 Symptoms: have improved pm1 Accepting Physician: Vandana Moncada MD(05/04/22 00:49) lg3 Diagnosis - Diverticulitis of large intestine with perforation and abscess pm1 Forms: - Medication Reconciliation Form pm1 - SBAR form pm1 Signatures: Dispatcher [employer] EDWerner Olivier NP REINFORCEMENT MAKER pm1 Poppy Petersen, RN RN lg3 Ant Salas MD MD rt Valerie casey RN RN pf1 Corrections: (The following items were deleted from the chart) 05/03 23:56 22:00 pm1 pm1 05/04 00:49 05/03 23:56 Vandana Moncada MD pm1 lg3
[2022-05-03] MEDS ORDERED: METRONIDAZOLE 500mg IVPB 500 MG/100 ML BAG IV ONE (22:16)
[2022-05-03] MEDS ORDERED: Levofloxacin 750mg IV 750 MG/150 ML BAG IV ONE (22:16)
[2022-05-03 23:00] LABS: SARS-CoV-2 Antigen Rapid Res Negative (Negative)
[2022-05-04 02:17] VITALS: O2SAT 97
[2022-05-04 02:19] VITALS: BP 129/84; TEMP 98.7
== END 2022-05-04 00:49 ==
LOC: ER 19:05
DX: K57.20 Diverticulitis of large intestine with perforation and abscess without bleeding (principal); Z20.822 Contact with and (suspected) exposure to COVID-19; Z88.5 Allergy status to narcotic agent
CPT/HCPCS: 96365; 96367; 96361; 85025; 36415; 83690; 80053; 74177; 96375; 99285; 87811; Q9967; J1170 ×2; J7030 ×2; J2405